=== PATIENT | male | born 1955 | race Asian ===

== ENCOUNTER 2016-07-20 09:22 | Emergency (ER) | payer OTHER ==
[~2016-07-20] VITALS: Ht 188 cm; Wt 120.0 kg
[~2016-07-20 09:22] MED LIST: FINA5TAB41 PO; LISI-661 PO; OMEP20 PO; PARO10TA89 PO
[2016-07-20 09:30] VITALS: BP 104/72
[2016-07-20] MEDS ORDERED: METO50 PO (09:38)
[2016-07-20] MEDS ORDERED: QUET50TA PO (09:38)
[2016-07-20] MEDS ORDERED: PARO40TA PO (09:38)
[2016-07-20] MEDS ORDERED: HYDROCODONE/ACETAMINOPHEN 10-325 MG TABLET PO ONE (10:30)
== END 2016-07-20 10:37 | disposition home or self-care (01) ==
LOC: EMS 09:23
DX: S39.011A Strain of muscle, fascia and tendon of abdomen, initial encounter (principal); I10 Essential (primary) hypertension; J45.909 Unspecified asthma, uncomplicated; X58.XXXA Exposure to other specified factors, initial encounter; Y93.B9 Activity, other involving muscle strengthening exercises; Y92.89 Other specified places as the place of occurrence of the external cause; Y99.8 Other external cause status
CPT/HCPCS: 99282; 99283

== ENCOUNTER 2016-08-24 09:32 | Emergency (ER) | payer OTHER ==
[~2016-08-24] VITALS: Ht 188 cm; Wt 129.6 kg
[~2016-08-24 09:32] MED LIST changes: +METO50 PO; -PARO10TA89 PO; +PARO40TA PO; +QUET50TA PO
[2016-08-24] MEDS ORDERED: PROPARACAINE HCL 0.5% 15 ML OPHTHALMIC SOLUTION OS ONE (10:45)
[2016-08-24 11:29] VITALS: BP 120/76
== END 2016-08-24 11:30 | disposition home or self-care (01) ==
LOC: EMS 09:33
DX: T15.02XA Foreign body in cornea, left eye, initial encounter (principal); J45.909 Unspecified asthma, uncomplicated; I10 Essential (primary) hypertension; N40.0 Benign prostatic hyperplasia without lower urinary tract symptoms; X58.XXXA Exposure to other specified factors, initial encounter; Y93.89 Activity, other specified; Y92.89 Other specified places as the place of occurrence of the external cause; Y99.8 Other external cause status
CPT/HCPCS: 65205; 99284

== ENCOUNTER 2017-02-09 13:33 | Inpatient (IN) | payer OTHER ==
[~2017-02-09] VITALS: Ht 188 cm; Wt 130.5 kg
[~2017-02-09 13:33] MED LIST changes: +MULT-1204 PO; +PARO20TA24 PO; -PARO40TA PO; -QUET50TA PO
[2017-02-09 14:40] LABS: BASOPHILS # (AUTO) 0.11 K/uL (0.00-0.20); BASOPHILS % (AUTO) 1.5 % (0.0-2.0); EOSINOPHILS % (AUTO) 1.31 % (1.0-6.0); HEMATOCRIT 38.9 % (41-53); HEMOGLOBIN 12.8 g/dL (13.5-17.5); LYMPHOCYTES # (AUTO) 1.8 K/uL (1.0-4.8); LYMPHOCYTES % (AUTO) 23.7 % (22.0-44.0); MEAN CORPUSCULAR HEMOGLOBIN 27.6 pg (26.0-34.0); MEAN CORPUSCULAR VOLUME 84 fL (80-100); MONOCYTES # (AUTO) 0.5 K/uL (0.1-1.0); MONOCYTES % (AUTO) 6.7 % (2.0-9.0); NEUTROPHILS % (AUTO) 66.8 % (40.0-70.0); PLATELET COUNT (AUTO) 263 K/uL (150-450); RED BLOOD CELL COUNT(AUTO) 4.64 MIL/uL (4.50-5.90); RED CELL DISTRIBUTION WIDTH 14.3 % (11.5-14.5); WHITE BLOOD COUNT (AUTO) 7.5 K/uL (4.5-11.0)
[2017-02-09 14:55] LABS: ANION GAP 8 mmol/L (8-16); CALCIUM, TOTAL 8.9 mg/dL (8.8-10.5); CARBON DIOXIDE 26 mmol/L (22-29); CHLORIDE 105 mmol/L (98-107); GLOMERULAR FILTR. RATE CALC > 60 mL/min (>60); POTASSIUM 4.1 mmol/L (3.5-5.1); SODIUM SERUM 139 mmol/L (136-145); UREA NITROGEN, BLOOD 13 mg/dL (7-18)
[2017-02-09] MEDS ORDERED: ASPIRIN 81 MG CHEWABLE TABLET PO ONE (15:00)
[2017-02-09 15:10] LABS: ALANINE AMINOTRANSFERASE 24 U/L (12-78); ALBUMIN 3.3 g/dL (3.4-5.0); ASPARTATE AMINOTRANSFERASE 14 U/L (15-37); BILIRUBIN,TOTAL 0.4 mg/dL (0.1-1.0); TOTAL PROTEIN, SERUM 7.2 g/dL (6.4-8.2)
[2017-02-09] MEDS ORDERED: 0.9% SODIUM CHLORIDE 10 ML SYRINGE IVP PRN (17:00)
[2017-02-09] MEDS ORDERED: ONDANSETRON HCL 4 MG/2 ML VIAL IVP PRN (17:00)
[2017-02-09] MEDS ORDERED: ACETAMINOPHEN 325 MG TABLET PO PRN ×2 (17:00→21:45)
[2017-02-09 18:16] VITALS: BP 148/91
[2017-02-09 19:46] VITALS: BP 123/72
[2017-02-09] MEDS ORDERED: MAGNESIUM HYDROXIDE SUSPENSION 30 ML UDCUP PO PRN (21:45)
[2017-02-10 00:06] VITALS: BP 123/70
[2017-02-10] MEDS: HEPARIN SODIUM,PORCINE 5,000 UNITS/ML VIAL SQ SCH ×3 (00:12→16:00)
[2017-02-10] MEDS: OxyCODONE HCL/ACETAMINOPHEN 5-325 MG TABLET PO PRN ×2 (00:12→10:29)
[2017-02-10 03:31] LABS: CHOL/HDL RATIO 5.4 (4.2-7.3)
[2017-02-10 05:02] VITALS: BP 128/81
[2017-02-10 07:08] VITALS: BP 116/74
[2017-02-10] MEDS ORDERED: PANTOPRAZOLE SODIUM 40 MG DR TABLET PO SCH (09:00)
[2017-02-10] MEDS ORDERED: DOCUSATE SODIUM 100 MG CAPSULE PO SCH (09:00)
[2017-02-10] MEDS ORDERED: ASPIRIN 81 MG CHEWABLE TABLET PO SCH (09:00)
[2017-02-10 11:59] VITALS: BP 114/68
[2017-02-10 15:17] VITALS: BP 116/68
== END 2017-02-10 18:45 | disposition home or self-care (01) | DRG 203 ==
LOC: EMS 13:36 → 5N 16:52
PROVIDERS: ADMIT Internal Medicine; ATTEND Internal Medicine
DX: R07.9 Chest pain, unspecified (principal); I10 Essential (primary) hypertension; M54.2 Cervicalgia; J45.909 Unspecified asthma, uncomplicated; F32.9 Major depressive disorder, single episode, unspecified; K21.9 Gastro-esophageal reflux disease without esophagitis; F41.9 Anxiety disorder, unspecified; N40.0 Benign prostatic hyperplasia without lower urinary tract symptoms; E78.5 Hyperlipidemia, unspecified; F42.9 Obsessive-compulsive disorder, unspecified; M47.9 Spondylosis, unspecified; E66.9 Obesity, unspecified; Z68.36 Body mass index [BMI] 36.0-36.9, adult; Z79.899 Other long term (current) drug therapy
CPT/HCPCS: 93005; 93306; 99285; J1644

== ENCOUNTER 2017-10-05 16:55 | Emergency (ER) | payer OTHER ==
[~2017-10-05] VITALS: Ht 188 cm; Wt 118.2 kg
[2017-10-05 17:40] VITALS: BP 117/73
== END 2017-10-05 20:18 | disposition left against medical advice (07) ==
LOC: EMS 16:56
DX: M25.561 Pain in right knee (principal); G89.29 Other chronic pain; K21.9 Gastro-esophageal reflux disease without esophagitis; J45.909 Unspecified asthma, uncomplicated; I10 Essential (primary) hypertension; Z53.21 Procedure and treatment not carried out due to patient leaving prior to being seen by health care provider

== ENCOUNTER 2017-10-07 08:57 | Emergency (ER) | payer OTHER ==
[~2017-10-07] VITALS: Ht 188 cm; Wt 118.2 kg
[~2017-10-07 08:57] MED LIST changes: -LISI-661 PO
[2017-10-07 11:53] VITALS: BP 128/67
== END 2017-10-07 12:02 | disposition home or self-care (01) ==
LOC: EMS 08:59
DX: M25.561 Pain in right knee (principal); I10 Essential (primary) hypertension; J45.909 Unspecified asthma, uncomplicated; K21.9 Gastro-esophageal reflux disease without esophagitis
CPT/HCPCS: 29505; 99284

== ENCOUNTER 2018-03-11 13:33 | Emergency (ER) | payer OTHER ==
[~2018-03-11] VITALS: Ht 188 cm; Wt 116.4 kg
[2018-03-11 14:07] LABS: BASOPHILS % (AUTO) 0.8 % (0.0-2.0); EOSINOPHILS % (AUTO) 1.4 % (1.0-6.0); HEMATOCRIT 43.3 % (41-53); HEMOGLOBIN 14.5 g/dL (13.5-17.5); LYMPHOCYTES # (AUTO) 1.7 K/uL (1.0-4.8); LYMPHOCYTES % (AUTO) 25.2 % (22.0-44.0); MEAN CORPUSCULAR HGB CONC 33.5 G/dL (31.0-37.0); MEAN CORPUSCULAR VOLUME 84 fL (80-100); MONOCYTES # (AUTO) 0.6 K/uL (0.1-1.0); MONOCYTES % (AUTO) 8.9 % (2.0-9.0); NEUTROPHILS # (AUTO) 4.2 K/uL (1.8-7.7); NEUTROPHILS % (AUTO) 63.7 % (40.0-70.0); PLATELET COUNT (AUTO) 317 K/uL (150-450); RED BLOOD CELL COUNT(AUTO) 5.17 MIL/uL (4.50-5.90); RED CELL DISTRIBUTION WIDTH 13.2 % (11.5-14.5)
[2018-03-11 14:15] LABS: ANION GAP 7 mmol/L (8-16); CALCIUM, TOTAL 8.7 mg/dL (8.8-10.5); CARBON DIOXIDE 30 mmol/L (22-29); CHLORIDE 100 mmol/L (98-107); CREATININE 1.04 mg/dL (0.60-1.30); GLOMERULAR FILTR. RATE CALC > 60 mL/min (>60); GLUCOSE,RANDOM 113 mg/dL (70-110); POTASSIUM 4.6 mmol/L (3.5-5.1); SODIUM SERUM 137 mmol/L (136-145); UREA NITROGEN, BLOOD 13 mg/dL (7-18)
[2018-03-11 14:21] LABS: ALANINE AMINOTRANSFERASE 31 U/L (12-78); ALBUMIN 3.8 g/dL (3.4-5.0); ALKALINE PHOSPHATASE 115 U/L (46-116); ASPARTATE AMINOTRANSFERASE 24 U/L (15-37); BILIRUBIN,TOTAL 0.3 mg/dL (0.1-1.0); TOTAL PROTEIN, SERUM 7.5 g/dL (6.4-8.2)
[2018-03-11] MEDS: LORazepam 1 MG TABLET PO ONE (15:22)
[2018-03-11 15:58] LABS: AMPHET/METH SCREEN,URINE NEGATIVE (NEGATIVE); BARBITURATE SCREEN, URINE NEGATIVE (NEGATIVE); BENZODIAZEPINES SCREEN,URINE NEGATIVE (NEGATIVE); CANNABINOID SCREEN,URINE NEGATIVE (NEGATIVE); COCAINE SCREEN,URINE NEGATIVE (NEGATIVE); METHADONE SCREEN, URINE NEGATIVE (NEGATIVE); OPIATE SCREEN,URINE NEGATIVE (NEGATIVE)
[2018-03-11 16:00] VITALS: BP 128/72
[2018-03-11 16:00] LABS: PHENCYCLIDINE SCREEN,URINE NEGATIVE (NEGATIVE)
== END 2018-03-11 16:04 | disposition home or self-care (01) ==
LOC: EMS 13:35
DX: F32.9 Major depressive disorder, single episode, unspecified (principal); F41.9 Anxiety disorder, unspecified; K21.9 Gastro-esophageal reflux disease without esophagitis; I10 Essential (primary) hypertension; Z79.899 Other long term (current) drug therapy
CPT/HCPCS: 36415; 80053; 80307; 85025; 99284; G0480

== ENCOUNTER 2018-09-02 16:50 | Emergency (ER) | payer OTHER ==
[~2018-09-02] VITALS: Ht 188 cm; Wt 114.5 kg
[~2018-09-02 16:50] MED LIST changes: -METO50 PO; -MULT-1204 PO
[2018-09-02] MEDS ORDERED: MULT-1192 PO (17:12)
[2018-09-02] MEDS ORDERED: FEXO-58 PO (17:12)
[2018-09-02 18:53] LABS: BASOPHILS % (AUTO) 1.2 % (0.0-2.0); EOSINOPHILS % (AUTO) 5.1 % (1.0-6.0); HEMATOCRIT 36.7 % (41-53); HEMOGLOBIN 12.2 g/dL (13.5-17.5); LYMPHOCYTES # (AUTO) 2.3 K/uL (1.0-4.8); LYMPHOCYTES % (AUTO) 39.6 % (22.0-44.0); MEAN CORPUSCULAR HEMOGLOBIN 27.3 pg (26.0-34.0); MEAN CORPUSCULAR HGB CONC 33.1 G/dL (31.0-37.0); MEAN CORPUSCULAR VOLUME 83 fL (80-100); MONOCYTES # (AUTO) 0.4 K/uL (0.1-1.0); MONOCYTES % (AUTO) 7.4 % (2.0-9.0); NEUTROPHILS # (AUTO) 2.7 K/uL (1.8-7.7); NEUTROPHILS % (AUTO) 46.7 % (40.0-70.0); PLATELET COUNT (AUTO) 257 K/uL (150-450); RED BLOOD CELL COUNT(AUTO) 4.45 MIL/uL (4.50-5.90); RED CELL DISTRIBUTION WIDTH 13.6 % (11.5-14.5)
[2018-09-02 19:05] LABS: PROTHROMBIN TIME 10.9 SEC (9.4-11.6)
[2018-09-02 19:09] LABS: ANION GAP 5 mmol/L (8-16); CARBON DIOXIDE 28 mmol/L (22-29); CHLORIDE 103 mmol/L (98-107); CREATININE 1.07 mg/dL (0.60-1.30); GLOMERULAR FILTR. RATE CALC > 60 mL/min (>60); GLUCOSE,RANDOM 101 mg/dL (70-110); POTASSIUM 4.3 mmol/L (3.5-5.1); SODIUM SERUM 136 mmol/L (136-145); UREA NITROGEN, BLOOD 15 mg/dL (7-18)
[2018-09-02 19:12] LABS: APPEARANCE,URINE CLEAR (CLEAR); BILIRUBIN,URINE NEGATIVE (NEGATIVE); GLUCOSE, URINE (UA) NEGATIVE (NEGATIVE); KETONES,URINE NEGATIVE (NEGATIVE); LEUKOCYTE ESTERASE ,URINE NEGATIVE (NEGATIVE); NITRATE,URINE NEGATIVE (NEGATIVE); OCCULT BLOOD,URINE NEGATIVE (NEGATIVE); PROTEIN,URINE NEGATIVE (NEGATIVE)
[2018-09-02 19:26] LABS: B-TYPE NATRIURETIC PEPTIDE 23 pg/mL (0-100)
[2018-09-02 19:33] LABS: ALANINE AMINOTRANSFERASE 27 U/L (12-78); ALBUMIN 3.1 g/dL (3.4-5.0); ALKALINE PHOSPHATASE 102 U/L (46-116); ASPARTATE AMINOTRANSFERASE 19 U/L (15-37); BILIRUBIN,TOTAL 0.2 mg/dL (0.1-1.0); CREATINE KINASE, TOTAL ONLY 141 U/L (39-308); TOTAL PROTEIN, SERUM 6.2 g/dL (6.4-8.2)
[2018-09-02] MEDS ORDERED: IPRATROPIUM BROMIDE 0.5 MG/2.5 ML NEB SOLUTION NEB ONE (20:15)
[2018-09-02] MEDS ORDERED: ALBUTEROL SULFATE 2.5 MG/0.5 ML NEB SOLUTION NEB ONE (20:15)
[2018-09-02] MEDS ORDERED: ALBUTEROL SULFATE HFA 90 MCG/PUFF 8 GM INHALER IH ONE (20:30)
[2018-09-02 21:30] VITALS: BP 112/65
== END 2018-09-02 21:50 | disposition left against medical advice (07) ==
LOC: EMS 16:51
DX: J45.909 Unspecified asthma, uncomplicated (principal); I10 Essential (primary) hypertension; K21.9 Gastro-esophageal reflux disease without esophagitis; F41.9 Anxiety disorder, unspecified; F32.9 Major depressive disorder, single episode, unspecified; Z79.899 Other long term (current) drug therapy
CPT/HCPCS: 93005; 94640; J3535

== ENCOUNTER 2018-10-10 13:46 | Inpatient (IN) | payer MEDICAID, OTHER ==
[~2018-10-10] VITALS: Ht 188 cm; Wt 112.9 kg
[~2018-10-10 13:46] MED LIST changes: +FEXO-58 PO; +MULT-1192 PO
[2018-10-10] MEDS ORDERED: RISP.5 PO (14:24)
[2018-10-10 17:12] LABS: BASOPHILS % (AUTO) 0.8 % (0.0-2.0); EOSINOPHILS % (AUTO) 0.2 % (1.0-6.0); HEMATOCRIT 41.7 % (41-53); LYMPHOCYTES # (AUTO) 1.4 K/uL (1.0-4.8); LYMPHOCYTES % (AUTO) 14.1 % (22.0-44.0); MEAN CORPUSCULAR HEMOGLOBIN 27.4 pg (26.0-34.0); MEAN CORPUSCULAR HGB CONC 33.5 G/dL (31.0-37.0); MEAN CORPUSCULAR VOLUME 82 fL (80-100); MONOCYTES # (AUTO) 0.9 K/uL (0.1-1.0); MONOCYTES % (AUTO) 9.3 % (2.0-9.0); NEUTROPHILS # (AUTO) 7.5 K/uL (1.8-7.7); NEUTROPHILS % (AUTO) 75.6 % (40.0-70.0); PLATELET COUNT (AUTO) 314 K/uL (150-450); RED CELL DISTRIBUTION WIDTH 13.9 % (11.5-14.5)
[2018-10-10 17:32] LABS: ANION GAP 11 mmol/L (8-16); CALCIUM, TOTAL 9.5 mg/dL (8.8-10.5); CARBON DIOXIDE 24 mmol/L (22-29); CHLORIDE 99 mmol/L (98-107); CREATININE 1.14 mg/dL (0.60-1.30); GLOMERULAR FILTR. RATE CALC > 60 mL/min (>60); GLUCOSE,RANDOM 114 mg/dL (70-110); POTASSIUM 4.1 mmol/L (3.5-5.1); SODIUM SERUM 134 mmol/L (136-145); UREA NITROGEN, BLOOD 12 mg/dL (7-18)
[2018-10-10 17:38] LABS: ALANINE AMINOTRANSFERASE 24 U/L (12-78); ALBUMIN 3.9 g/dL (3.4-5.0); ALKALINE PHOSPHATASE 118 U/L (46-116); ASPARTATE AMINOTRANSFERASE 32 U/L (15-37); TOTAL PROTEIN, SERUM 7.8 g/dL (6.4-8.2)
[2018-10-10] MEDS ORDERED: HALOPERIDOL 5 MG TABLET PO ONE (17:45)
[2018-10-10] MEDS ORDERED: LORazepam 2 MG TABLET PO ONE (17:45)
[2018-10-10] MEDS ORDERED: ZOLPIDEM TARTRATE 10 MG TABLET PO PRN (18:45)
[2018-10-10] MEDS ORDERED: RisperiDONE 1 MG TABLET PO ONE (18:45)
[2018-10-10] MEDS ORDERED: HALOPERIDOL 5 MG TABLET PO PRN (18:45)
[2018-10-10] MEDS ORDERED: LORazepam 2 MG TABLET PO PRN (18:45)
[2018-10-10 20:22] VITALS: BP 139/86
[2018-10-10 20:30] VITALS: BP 139/86
[2018-10-10] MEDS: RisperiDONE 3 MG TABLET PO SCH (21:16)
[2018-10-10] MEDS ORDERED: CloNIDine HCL 0.1 MG TABLET PO PRN (21:30)
[2018-10-10] MEDS ORDERED: PETROLATUM,WHITE 28 GM JELLY TP PRN (21:30)
[2018-10-10] MEDS ORDERED: GuaiFENesin/D-METHORPHAN [SUGAR-FREE] 200-20MG/10 ML SYRUP UDCUP PO PRN (21:30)
[2018-10-10] MEDS ORDERED: IBUPROFEN 400 MG TABLET PO PRN (21:30)
[2018-10-10] MEDS ORDERED: ONDANSETRON HCL 4 MG TABLET PO PRN (21:30)
[2018-10-10] MEDS ORDERED: DOCUSATE SODIUM 100 MG CAPSULE PO PRN (21:30)
[2018-10-10] MEDS ORDERED: ALBUTEROL SULFATE HFA 90 MCG/PUFF 8 GM INHALER IH PRN (21:30)
[2018-10-10] MEDS ORDERED: MAG HYDROX/AL HYDROX/SIMETH ES 30 ML SUSPENSION UDCUP PO PRN (21:30)
[2018-10-10] MEDS ORDERED: LOPERAMIDE HCL 2 MG CAPSULE PO PRN (21:30)
[2018-10-10] MEDS ORDERED: NICOTINE 14 MG/24 HOUR PATCH TD PRN (21:30)
[2018-10-11 06:50] LABS: BASOPHILS % (AUTO) 0.6 % (0.0-2.0); EOSINOPHILS % (AUTO) 2.2 % (1.0-6.0); HEMATOCRIT 39.4 % (41-53); HEMOGLOBIN 12.9 g/dL (13.5-17.5); LYMPHOCYTES # (AUTO) 1.1 K/uL (1.0-4.8); LYMPHOCYTES % (AUTO) 22.1 % (22.0-44.0); MEAN CORPUSCULAR HEMOGLOBIN 27.4 pg (26.0-34.0); MEAN CORPUSCULAR HGB CONC 32.7 G/dL (31.0-37.0); MEAN CORPUSCULAR VOLUME 84 fL (80-100); MONOCYTES # (AUTO) 0.6 K/uL (0.1-1.0); MONOCYTES % (AUTO) 11.6 % (2.0-9.0); NEUTROPHILS # (AUTO) 3.1 K/uL (1.8-7.7); NEUTROPHILS % (AUTO) 63.5 % (40.0-70.0); PLATELET COUNT (AUTO) 241 K/uL (150-450)
[2018-10-11 06:57] LABS: HEMOGLOBIN A1C 5.9 % (4.5-6.2)
[2018-10-11 07:28] LABS: ALANINE AMINOTRANSFERASE 24 U/L (12-78); ALBUMIN 3.3 g/dL (3.4-5.0); ALKALINE PHOSPHATASE 107 U/L (46-116); ANION GAP 6 mmol/L (8-16); ASPARTATE AMINOTRANSFERASE 28 U/L (15-37); BILIRUBIN,TOTAL 1.2 mg/dL (0.1-1.0); CARBON DIOXIDE 30 mmol/L (22-29); CHLORIDE 101 mmol/L (98-107); CHOL/HDL RATIO 3.5 (4.2-7.3); CHOLESTEROL 182 mg/dL (131-200); CREATININE 1.07 mg/dL (0.60-1.30); GLOMERULAR FILTR. RATE CALC > 60 mL/min (>60); GLUCOSE,RANDOM 103 mg/dL (70-110); HDL CHOLESTEROL 52 mg/dL (40-60); LDL CHOL (CALC.) 118 mg/dL (0-130); POTASSIUM 4.3 mmol/L (3.5-5.1); SODIUM SERUM 137 mmol/L (136-145); THYROID STIMULATING HORMONE 0.75 uIU/mL (0.36-3.74); TOTAL PROTEIN, SERUM 6.4 g/dL (6.4-8.2); TRIGLYCERIDES 62 mg/dL (15-150); UREA NITROGEN, BLOOD 13 mg/dL (7-18)
[2018-10-11] MEDS: RisperiDONE 3 MG TABLET PO SCH ×2 (08:31→16:07)
[2018-10-11] MEDS: ACETAMINOPHEN 325 MG TABLET PO PRN (08:31)
[2018-10-11 08:34] VITALS: BP 152/78
[2018-10-11 09:34] VITALS: BP 105/53
[2018-10-11] MEDS: PARoxetine HCL 20 MG TABLET PO SCH (13:29)
[2018-10-11 17:00] VITALS: BP 103/50
[2018-10-11] MEDS: RisperiDONE 2 MG TABLET PO SCH (20:14)
[2018-10-12 08:01] VITALS: BP 112/67
[2018-10-12] MEDS: OMEPRAZOLE 20 MG CAPSULE PO SCH (08:22)
[2018-10-12] MEDS: RisperiDONE 3 MG TABLET PO SCH ×2 (08:22→16:14)
[2018-10-12] MEDS: MULTIVITAMINS, THERAPEUTIC TABLET PO SCH (08:23)
[2018-10-12] MEDS: PARoxetine HCL 20 MG TABLET PO SCH (08:23)
[2018-10-12] MEDS: FINASTERIDE 5 MG TABLET PO SCH (08:23)
[2018-10-12 16:20] VITALS: BP 106/57
[2018-10-12] MEDS: RisperiDONE 2 MG TABLET PO SCH (20:49)
[2018-10-13 08:05] VITALS: BP 135/95
[2018-10-13] MEDS: MULTIVITAMINS, THERAPEUTIC TABLET PO SCH (08:31)
[2018-10-13] MEDS: RisperiDONE 3 MG TABLET PO SCH (08:31)
[2018-10-13] MEDS: PARoxetine HCL 20 MG TABLET PO SCH (08:31)
[2018-10-13] MEDS: FINASTERIDE 5 MG TABLET PO SCH (08:32)
[2018-10-13] MEDS: OMEPRAZOLE 20 MG CAPSULE PO SCH (08:32)
[2018-10-13 17:16] VITALS: BP 111/55
[2018-10-14 05:25] VITALS: BP 130/68
[2018-10-14] MEDS: OMEPRAZOLE 20 MG CAPSULE PO SCH (08:20)
[2018-10-14] MEDS: ARIPiprazole 15 MG TABLET PO SCH (08:21)
[2018-10-14] MEDS: FINASTERIDE 5 MG TABLET PO SCH (08:21)
[2018-10-14] MEDS: PARoxetine HCL 20 MG TABLET PO SCH (08:21)
[2018-10-14] MEDS: MULTIVITAMINS, THERAPEUTIC TABLET PO SCH (08:21)
[2018-10-14] MEDS: BuPROPion HCL XL 150 MG ER TABLET PO SCH (08:21)
[2018-10-14 08:27] VITALS: BP 113/54
[2018-10-14 17:03] VITALS: BP 119/60
[2018-10-15 08:05] VITALS: BP 124/87
[2018-10-15] MEDS: PARoxetine HCL 20 MG TABLET PO SCH (08:46)
[2018-10-15] MEDS: MULTIVITAMINS, THERAPEUTIC TABLET PO SCH (08:46)
[2018-10-15] MEDS: OMEPRAZOLE 20 MG CAPSULE PO SCH (08:46)
[2018-10-15] MEDS: BuPROPion HCL XL 150 MG ER TABLET PO SCH (08:46)
[2018-10-15] MEDS: FINASTERIDE 5 MG TABLET PO SCH (08:47)
[2018-10-15] MEDS: ARIPiprazole 15 MG TABLET PO SCH (08:47)
[2018-10-15] MEDS: MAGNESIUM HYDROXIDE SUSPENSION 30 ML UDCUP PO PRN (09:00)
[2018-10-15 16:00] VITALS: BP 131/68
[2018-10-15] MEDS: ACETAMINOPHEN 325 MG TABLET PO PRN (16:00)
[2018-10-16 05:37] VITALS: BP 141/82
[2018-10-16] MEDS: ACETAMINOPHEN 325 MG TABLET PO PRN (05:37)
[2018-10-16 08:05] VITALS: BP 147/84
[2018-10-16] MEDS: MULTIVITAMINS, THERAPEUTIC TABLET PO SCH (08:10)
[2018-10-16] MEDS: OMEPRAZOLE 20 MG CAPSULE PO SCH (08:10)
[2018-10-16] MEDS: PARoxetine HCL 20 MG TABLET PO SCH (08:11)
[2018-10-16] MEDS: BuPROPion HCL XL 150 MG ER TABLET PO SCH (08:11)
[2018-10-16] MEDS: FINASTERIDE 5 MG TABLET PO SCH (08:11)
[2018-10-16] MEDS: ARIPiprazole 15 MG TABLET PO SCH (08:11)
[2018-10-16 17:00] VITALS: BP 136/84
[2018-10-17] MEDS: MAGNESIUM HYDROXIDE SUSPENSION 30 ML UDCUP PO PRN (00:18)
[2018-10-17 00:22] VITALS: BP 132/83
[2018-10-17] MEDS: PARoxetine HCL 20 MG TABLET PO SCH (08:02)
[2018-10-17] MEDS: ARIPiprazole 15 MG TABLET PO SCH (08:02)
[2018-10-17] MEDS: OMEPRAZOLE 20 MG CAPSULE PO SCH (08:02)
[2018-10-17] MEDS: BuPROPion HCL XL 150 MG ER TABLET PO SCH (08:02)
[2018-10-17] MEDS: MULTIVITAMINS, THERAPEUTIC TABLET PO SCH (08:02)
[2018-10-17] MEDS: FINASTERIDE 5 MG TABLET PO SCH (08:03)
[2018-10-17] MEDS ORDERED: ARIP15TA2 PO (09:41)
[2018-10-17] MEDS ORDERED: BUPR-93 PO (09:41)
[2018-10-17 10:22] VITALS: BP 142/90
== END 2018-10-17 11:05 | disposition home or self-care (01) | DRG 750 ==
LOC: EMS 13:47 → 3EX 19:30
PROVIDERS: ADMIT Psychiatry & Neurology Psychiatry; ATTEND Psychiatry & Neurology Psychiatry
DX: F20.0 Paranoid schizophrenia (principal); R45.851 Suicidal ideations; Z91.14 Patient's other noncompliance with medication regimen; E78.5 Hyperlipidemia, unspecified; F42.9 Obsessive-compulsive disorder, unspecified; I10 Essential (primary) hypertension; J44.9 Chronic obstructive pulmonary disease, unspecified; K21.9 Gastro-esophageal reflux disease without esophagitis; N40.0 Benign prostatic hyperplasia without lower urinary tract symptoms; F41.9 Anxiety disorder, unspecified; M47.9 Spondylosis, unspecified; F32.9 Major depressive disorder, single episode, unspecified
CPT/HCPCS: 83036; 84443; G0378; G0480

== ENCOUNTER 2018-11-03 10:49 | Emergency (ER) | payer MEDICAID, OTHER ==
[~2018-11-03] VITALS: Ht 188 cm; Wt 115.9 kg
[~2018-11-03 10:49] MED LIST changes: +ARIP15TA2 PO; +BUPR-93 PO; -FEXO-58 PO
[2018-11-03] MEDS ORDERED: LORazepam 2 MG TABLET PO ONE (11:15)
[2018-11-03 11:33] LABS: BASOPHILS % (AUTO) 1.2 % (0.0-2.0); EOSINOPHILS % (AUTO) 2.8 % (1.0-6.0); HEMATOCRIT 41.9 % (41-53); HEMOGLOBIN 13.6 g/dL (13.5-17.5); LYMPHOCYTES # (AUTO) 1.6 K/uL (1.0-4.8); LYMPHOCYTES % (AUTO) 26.1 % (22.0-44.0); MEAN CORPUSCULAR HEMOGLOBIN 27.3 pg (26.0-34.0); MEAN CORPUSCULAR HGB CONC 32.4 G/dL (31.0-37.0); MEAN CORPUSCULAR VOLUME 84 fL (80-100); MONOCYTES # (AUTO) 0.5 K/uL (0.1-1.0); MONOCYTES % (AUTO) 8.5 % (2.0-9.0); NEUTROPHILS # (AUTO) 3.7 K/uL (1.8-7.7); NEUTROPHILS % (AUTO) 61.4 % (40.0-70.0); PLATELET COUNT (AUTO) 305 K/uL (150-450); RED BLOOD CELL COUNT(AUTO) 4.98 MIL/uL (4.50-5.90)
[2018-11-03 12:53] VITALS: BP 123/76
[2018-11-03 12:54] LABS: ANION GAP 8 mmol/L (8-16); CALCIUM, TOTAL 9.7 mg/dL (8.8-10.5); CARBON DIOXIDE 24 mmol/L (22-29); CHLORIDE 102 mmol/L (98-107); CREATININE 1.03 mg/dL (0.60-1.30); GLOMERULAR FILTR. RATE CALC > 60 mL/min (>60); GLUCOSE,RANDOM 107 mg/dL (70-110); POTASSIUM 3.7 mmol/L (3.5-5.1); SODIUM SERUM 134 mmol/L (136-145); UREA NITROGEN, BLOOD 12 mg/dL (7-18)
[2018-11-03 13:06] LABS: ALANINE AMINOTRANSFERASE 42 U/L (12-78); ALBUMIN 3.4 g/dL (3.4-5.0); ALKALINE PHOSPHATASE 101 U/L (46-116); ASPARTATE AMINOTRANSFERASE 26 U/L (15-37); BILIRUBIN,TOTAL 0.3 mg/dL (0.1-1.0); TOTAL PROTEIN, SERUM 6.9 g/dL (6.4-8.2)
== END 2018-11-03 13:15 | disposition home or self-care (01) ==
LOC: EMS 10:51
DX: F41.9 Anxiety disorder, unspecified (principal); F32.9 Major depressive disorder, single episode, unspecified; K21.9 Gastro-esophageal reflux disease without esophagitis; I10 Essential (primary) hypertension; J45.909 Unspecified asthma, uncomplicated
CPT/HCPCS: 36415; 80053; 85025; 99284; G0480

== ENCOUNTER 2018-11-18 03:41 | Emergency (ER) | payer OTHER ==
[~2018-11-18] VITALS: Ht 188 cm; Wt 118.2 kg
[~2018-11-18 03:41] MED LIST changes: -BUPR-93 PO
[2018-11-18 03:47] VITALS: BP 146/89
[2018-11-18 07:05] LABS: GLUCOSE,POINT OF CARE 117 MG/DL (70-110)
== END 2018-11-18 04:40 | disposition left against medical advice (07) ==
LOC: EMS 03:41
DX: Z53.21 Procedure and treatment not carried out due to patient leaving prior to being seen by health care provider (principal)

== ENCOUNTER 2019-06-09 07:46 | Emergency (ER) | payer OTHER ==
[~2019-06-09] VITALS: Ht 188 cm; Wt 118.2 kg
[~2019-06-09 07:46] MED LIST changes: -ARIP15TA2 PO; +FINA-27 PO; -FINA5TAB41 PO
[2019-06-09] MEDS ORDERED: LISI-661 PO (07:56)
[2019-06-09] MEDS ORDERED: IBUP-2271 PO (07:57)
[2019-06-09 08:30] VITALS: BP 118/86
== END 2019-06-09 08:31 | disposition home or self-care (01) ==
LOC: EMS 07:47
DX: M25.572 Pain in left ankle and joints of left foot (principal); I10 Essential (primary) hypertension; J45.909 Unspecified asthma, uncomplicated; F41.9 Anxiety disorder, unspecified; F32.9 Major depressive disorder, single episode, unspecified; F42.9 Obsessive-compulsive disorder, unspecified; Z98.890 Other specified postprocedural states; Z79.899 Other long term (current) drug therapy; Z88.8 Allergy status to other drugs, medicaments and biological substances

== ENCOUNTER 2020-01-02 12:37 | Emergency (ER) | payer OTHER ==
[~2020-01-02] VITALS: Ht 190.5 cm; Wt 122.7 kg
[~2020-01-02 12:37] MED LIST changes: +IBUP-2759 PO; +LISI-661 PO; -OMEP20 PO
[2020-01-02] MEDS ORDERED: PARO10TA89 PO (13:10)
[2020-01-02] MEDS ORDERED: ALBU8HFA IH (13:10)
[2020-01-02] MEDS ORDERED: LISI-662 PO (13:10)
[2020-01-02] MEDS ORDERED: PredniSONE 20 MG TABLET PO ONE (13:15)
[2020-01-02 15:30] VITALS: BP 141/81
== END 2020-01-02 16:05 | disposition home or self-care (01) ==
LOC: EMS 12:39
DX: J45.909 Unspecified asthma, uncomplicated (principal); F32.9 Major depressive disorder, single episode, unspecified; I10 Essential (primary) hypertension
CPT/HCPCS: 93005; 99283; J7512

== ENCOUNTER 2020-07-27 17:48 | Emergency (ER) | payer OTHER ==
[~2020-07-27] VITALS: Ht 188 cm; Wt 125.0 kg
[~2020-07-27 17:48] MED LIST changes: +ALBU8HFA IH; -LISI-661 PO; +LISI-894 PO; +PARO10TA89 PO; -PARO20TA24 PO
[2020-07-27] MEDS ORDERED: PROP10TA73 PO (17:58)
[2020-07-27] MEDS ORDERED: GABA-1181 PO (17:58)
[2020-07-27] MEDS ORDERED: LORA-1000 PO (17:59)
[2020-07-27 18:00] VITALS: BP 129/76
== END 2020-07-27 18:35 | disposition home or self-care (01) ==
LOC: EMS 17:48
DX: F25.9 Schizoaffective disorder, unspecified (principal); I10 Essential (primary) hypertension; Z88.8 Allergy status to other drugs, medicaments and biological substances; Z79.899 Other long term (current) drug therapy
CPT/HCPCS: 99284; Z7502

== ENCOUNTER 2021-07-03 09:05 | Emergency (ER) | payer MEDICARE, OTHER ==
[~2021-07-03] VITALS: Ht 188 cm; Wt 127.0 kg
[~2021-07-03 09:05] MED LIST changes: +GABA-1181 PO; +LORA-1000 PO; +PROP10TA73 PO
[2021-07-03] MEDS ORDERED: ALBUTEROL SULFATE HFA 90 MCG/PUFF 8 GM INHALER IH ONE (09:30)
[2021-07-03] MEDS ORDERED: IOHEXOL 350 MG/ML 100 ML VIAL ONE (10:17)
[2021-07-03] MEDS ORDERED: SODIUM CHLORIDE 0.9% 100 ML ONE (10:17)
[2021-07-03 10:28] LABS: BASOPHILS % (AUTO) 0.6 % (0.0-2.0); EOSINOPHILS % (AUTO) 1.8 % (1.0-6.0); HEMOGLOBIN 13.9 g/dL (13.5-17.5); LYMPHOCYTES % (AUTO) 17.7 % (22.0-44.0); MEAN CORPUSCULAR HEMOGLOBIN 27.1 pg (26.0-34.0); MEAN CORPUSCULAR VOLUME 82 fL (80-100); MONOCYTES # (AUTO) 0.4 K/uL (0.1-1.0); MONOCYTES % (AUTO) 6.7 % (2.0-9.0); NEUTROPHILS # (AUTO) 4.3 K/uL (1.8-7.7); NEUTROPHILS % (AUTO) 73.2 % (40.0-70.0); PLATELET COUNT (AUTO) 271 K/uL (150-450); RED BLOOD CELL COUNT(AUTO) 5.12 MIL/uL (4.50-5.90); RED CELL DISTRIBUTION WIDTH 13.3 % (11.5-14.5)
[2021-07-03 10:36] LABS: ANION GAP 7 mmol/L (8-16); CALCIUM, TOTAL 9.7 mg/dL (8.8-10.5); CARBON DIOXIDE 28 mmol/L (22-29); CHLORIDE 99 mmol/L (98-107); CREATININE 1.17 mg/dL (0.60-1.30); GLOMERULAR FILTR. RATE CALC > 60 mL/min (>60); GLUCOSE,RANDOM 125 mg/dL (70-110); POTASSIUM 4.2 mmol/L (3.5-5.1); SODIUM SERUM 134 mmol/L (136-145); UREA NITROGEN, BLOOD 15 mg/dL (7-18)
[2021-07-03 10:41] LABS: ALANINE AMINOTRANSFERASE 34 U/L (12-78); ALBUMIN 3.8 g/dL (3.4-5.0); ALKALINE PHOSPHATASE 121 U/L (46-116); ASPARTATE AMINOTRANSFERASE 23 U/L (15-37); BILIRUBIN,TOTAL 0.3 mg/dL (0.1-1.0); TOTAL PROTEIN, SERUM 7.7 g/dL (6.4-8.2)
[2021-07-03 10:46] LABS: COVID AG,FIA SOURCE NASOPHARYNGEAL
[2021-07-03 11:36] LABS: INFLUENZA TYPE A NEGATIVE FOR TYPE A (NEGATIVE); INFLUENZA TYPE B NEGATIVE FOR TYPE B (NEGATIVE)
[2021-07-03 13:45] VITALS: BP 105/73
== END 2021-07-03 14:45 | disposition home or self-care (01) ==
LOC: EMS 09:26
DX: R06.02 Shortness of breath (principal); I10 Essential (primary) hypertension; Z20.822 Contact with and (suspected) exposure to COVID-19; Z88.8 Allergy status to other drugs, medicaments and biological substances; Z79.899 Other long term (current) drug therapy
CPT/HCPCS: 36415; 70360; 70491; 71046; 80053; 85025; 87426; 87804; 94640; 99285; J7050; Q9967; J3535

== ENCOUNTER 2022-05-04 13:01 | Inpatient (IN) | payer MEDICARE, OTHER ==
[~2022-05-04] VITALS: Ht 188 cm; Wt 98.2 kg
[~2022-05-04 13:01] MED LIST changes: -IBUP-2759 PO; +IBUP-45 PO
[2022-05-04] MEDS ORDERED: LIDOCAINE 1% 10 ML VIAL SQ ONE (14:30)
[2022-05-04] MEDS ORDERED: SODIUM CHLORIDE 0.9% 1,000 ML IV ONE ×2 (14:45→19:00)
[2022-05-04 14:54] LABS: BASOPHILS % (AUTO) 1.1 % (0.0-2.0); EOSINOPHILS % (AUTO) 1.7 % (1.0-6.0); HEMATOCRIT 42.9 % (41-53); HEMOGLOBIN 13.9 g/dL (13.5-17.5); LYMPHOCYTES # (AUTO) 1.6 K/uL (1.0-4.8); LYMPHOCYTES % (AUTO) 30.7 % (22.0-44.0); MEAN CORPUSCULAR HGB CONC 32.4 G/dL (31.0-37.0); MEAN CORPUSCULAR VOLUME 83 fL (80-100); MONOCYTES # (AUTO) 0.5 K/uL (0.1-1.0); MONOCYTES % (AUTO) 8.9 % (2.0-9.0); NEUTROPHILS % (AUTO) 57.6 % (40.0-70.0); PLATELET COUNT (AUTO) 223 K/uL (150-450); RED BLOOD CELL COUNT(AUTO) 5.16 MIL/uL (4.50-5.90); RED CELL DISTRIBUTION WIDTH 14.1 % (11.5-14.5)
[2022-05-04 14:59] LABS: CALCIUM, TOTAL 9.4 mg/dL (8.8-10.5); CREATININE 1.23 mg/dL (0.60-1.30)
[2022-05-04] MEDS ORDERED: SODIUM,POTASSIUM PHOSPHATES POWDER PACKET PO ONE (15:45)
[2022-05-04] MEDS ORDERED: BACITRACIN 0.9 GM PACKET OINTMENT TP ONE (16:00)
[2022-05-04 17:04] LABS: COVID AG,FIA SOURCE NASAL SWAB
[2022-05-04] MEDS ORDERED: POTASSIUM CHL 10 MEQ/WATER 50 ML IV PRN (19:00)
[2022-05-04] MEDS ORDERED: MAGNESIUM HYDROXIDE SUSPENSION 30 ML UDCUP PO PRN (19:00)
[2022-05-04] MEDS ORDERED: ONDANSETRON HCL 4 MG/2 ML VIAL IVP PRN (19:00)
[2022-05-04] MEDS ORDERED: POTASSIUM CHLORIDE 20 MEQ ER TABLET PO PRN (19:00)
[2022-05-04 19:17] LABS: APPEARANCE,URINE CLEAR (CLEAR); GLUCOSE, URINE (UA) NEGATIVE (NEGATIVE); KETONES,URINE 40-60 mg/dL (NEGATIVE); LEUKOCYTE ESTERASE ,URINE LARGE (NEGATIVE); NITRATE,URINE NEGATIVE (NEGATIVE); OCCULT BLOOD,URINE NEGATIVE (NEGATIVE); PH,URINE 6.5 (5.0-8.0); PROTEIN,URINE 30-70 mg/dL (NEGATIVE); SPECIFIC GRAVITIY, URINE 1.038 (1.003-1.030)
[2022-05-04 19:18] LABS: BILIRUBIN,URINE SMALL (NEGATIVE)
[2022-05-04 19:22] LABS: THYROID STIMULATING HORMONE 1.47 uIU/mL (0.36-3.74)
[2022-05-04 19:25] LABS: BACTERIA,URINE None Seen /HPF (None Seen); RBC,URINE 0-2 /HPF (0-2); SQUAMOUS EPITHELIAL CELL,UR None Seen /LPF (None Seen)
[2022-05-04 20:55] VITALS: BP 107/67
[2022-05-05 00:22] VITALS: BP 109/71
[2022-05-05 04:25] VITALS: BP 105/68
[2022-05-05 07:11] VITALS: BP 110/74
[2022-05-05] MEDS: FAMOTIDINE 20 MG TABLET PO SCH (09:33)
[2022-05-05] MEDS: ACETAMINOPHEN 325 MG TABLET PO PRN (09:34)
[2022-05-05 11:21] VITALS: BP 124/62
[2022-05-05 15:58] VITALS: BP 118/69
[2022-05-05 20:06] VITALS: BP 102/67
[2022-05-06] VITALS (7 sets, daily range): BP systolic 101–140; BP diastolic 63–90
[2022-05-06] MEDS: ACETAMINOPHEN 325 MG TABLET PO PRN ×2 (04:45→15:14)
[2022-05-06] MEDS: FAMOTIDINE 20 MG TABLET PO SCH (08:50)
[2022-05-07 04:19] VITALS: BP 120/73
[2022-05-07] MEDS: ACETAMINOPHEN 325 MG TABLET PO PRN ×2 (05:17→09:13)
[2022-05-07 07:43] VITALS: BP 129/79
[2022-05-07] MEDS: FAMOTIDINE 20 MG TABLET PO SCH (09:10)
[2022-05-07 11:29] VITALS: BP 136/86
== END 2022-05-07 12:00 | disposition home or self-care (01) | DRG 74 ==
LOC: EMS 13:14 → AHU 17:06 → 5S 22:32
PROVIDERS: ADMIT Internal Medicine; ATTEND Internal Medicine
DX: G90.8 Other disorders of autonomic nervous system (principal); E87.6 Hypokalemia; F20.9 Schizophrenia, unspecified; I10 Essential (primary) hypertension; S01.81XA Laceration without foreign body of other part of head, initial encounter; F42.9 Obsessive-compulsive disorder, unspecified; F41.9 Anxiety disorder, unspecified; Z20.822 Contact with and (suspected) exposure to COVID-19; W18.39XA Other fall on same level, initial encounter; N40.0 Benign prostatic hyperplasia without lower urinary tract symptoms; Z88.8 Allergy status to other drugs, medicaments and biological substances; Z79.899 Other long term (current) drug therapy; Y93.89 Activity, other specified; Y92.89 Other specified places as the place of occurrence of the external cause; Y99.8 Other external cause status; T50.915A Adverse effect of multiple unspecified drugs, medicaments and biological substances, initial encounter
CPT/HCPCS: 12013; 70450; 71045; 72125; 80048; 81001; 84132; 84443; 84484; 85025; 87086; 87186; 93005; 93306; 97162; 99285; J3490; J7030; 36415-L1; 36415-TC

== ENCOUNTER 2022-05-14 12:23 | Inpatient (IN) | payer MEDICARE, OTHER ==
[~2022-05-14] VITALS: Ht 188 cm; Wt 92.0 kg
[~2022-05-14 12:23] MED LIST changes: -FINA-27 PO; -GABA-1181 PO; -IBUP-45 PO; -LISI-894 PO; -LORA-1000 PO; -PROP10TA73 PO
[2022-05-14 15:17] LABS: BASOPHILS % (AUTO) 0.3 % (0.0-2.0); EOSINOPHILS % (AUTO) 0.1 % (1.0-6.0); HEMOGLOBIN 14.6 g/dL (13.5-17.5); LYMPHOCYTES # (AUTO) 0.8 K/uL (1.0-4.8); LYMPHOCYTES % (AUTO) 11.3 % (22.0-44.0); MEAN CORPUSCULAR HEMOGLOBIN 27.1 pg (26.0-34.0); MEAN CORPUSCULAR HGB CONC 32.4 G/dL (31.0-37.0); MEAN CORPUSCULAR VOLUME 84 fL (80-100); MONOCYTES # (AUTO) 0.6 K/uL (0.1-1.0); MONOCYTES % (AUTO) 8.6 % (2.0-9.0); NEUTROPHILS # (AUTO) 5.9 K/uL (1.8-7.7); NEUTROPHILS % (AUTO) 79.7 % (40.0-70.0); PLATELET COUNT (AUTO) 246 K/uL (150-450); RED BLOOD CELL COUNT(AUTO) 5.38 MIL/uL (4.50-5.90); RED CELL DISTRIBUTION WIDTH 14.6 % (11.5-14.5)
[2022-05-14 15:30] LABS: ANION GAP 9 mmol/L (8-16); CALCIUM, TOTAL 9.6 mg/dL (8.8-10.5); CARBON DIOXIDE 25 mmol/L (22-29); CHLORIDE 102 mmol/L (98-107); CREATININE 1.24 mg/dL (0.60-1.30); GLUCOSE,RANDOM 114 mg/dL (70-110); POTASSIUM 4.1 mmol/L (3.5-5.1); SODIUM SERUM 136 mmol/L (136-145); UREA NITROGEN, BLOOD 22 mg/dL (7-18)
[2022-05-14 15:38] LABS: GLOMERULAR FILTR. RATE CALC 59 mL/min (>60)
[2022-05-14 15:41] LABS: B-TYPE NATRIURETIC PEPTIDE < 5 pg/mL (0-100)
[2022-05-14 15:56] LABS: ALANINE AMINOTRANSFERASE 22 U/L (12-78); ALBUMIN 3.9 g/dL (3.4-5.0); ALKALINE PHOSPHATASE 113 U/L (46-116); ASPARTATE AMINOTRANSFERASE 18 U/L (15-37); BILIRUBIN,TOTAL 0.6 mg/dL (0.1-1.0); CREATINE KINASE, TOTAL ONLY 133 U/L (39-308); TOTAL PROTEIN, SERUM 7.8 g/dL (6.4-8.2)
[2022-05-14] MEDS ORDERED: PARO40TA72 PO (16:06)
[2022-05-14] MEDS ORDERED: GABA-1181 PO (16:06)
[2022-05-14] MEDS ORDERED: PIMO1TAB2 PO (16:06)
[2022-05-14] MEDS ORDERED: OMEP20CA12 PO (16:06)
[2022-05-14] MEDS ORDERED: PARO30TA60 PO (16:06)
[2022-05-14] MEDS ORDERED: ATOR10TA69 PO (16:06)
[2022-05-14] MEDS ORDERED: TAMS-13 PO (16:06)
[2022-05-14] MEDS ORDERED: FINA5TAB41 PO (16:06)
[2022-05-14] MEDS ORDERED: TOPI25 PO (16:06)
[2022-05-14] MEDS ORDERED: CLON0.5T4 PO (16:06)
[2022-05-14] MEDS ORDERED: LISI20TA24 PO (16:06)
[2022-05-14] MEDS ORDERED: SODIUM CHLORIDE 0.9% 1,000 ML IV ONE ×2 (16:15→20:15)
[2022-05-14] MEDS ORDERED: ACETAMINOPHEN 325 MG TABLET PO PRN (19:45)
[2022-05-14] MEDS ORDERED: ONDANSETRON HCL 4 MG/2 ML VIAL IVP PRN ×2 (19:45→20:15)
[2022-05-14] MEDS ORDERED: MAGNESIUM HYDROXIDE SUSPENSION 30 ML UDCUP PO PRN (20:15)
[2022-05-14 22:53] LABS: COVID AG,FIA SOURCE NASAL SWAB
[2022-05-14 23:55] VITALS: BP 126/75
[2022-05-15] MEDS: HEPARIN SODIUM,PORCINE 5,000 UNITS/ML VIAL SQ SCH ×4 (01:13→23:38)
[2022-05-15 07:55] VITALS: BP 115/75
[2022-05-15] MEDS: FAMOTIDINE 20 MG TABLET PO SCH (08:07)
[2022-05-15 12:10] VITALS: BP 117/79
[2022-05-15] MEDS: ACETAMINOPHEN 325 MG TABLET PO PRN (14:14)
[2022-05-15 17:06] VITALS: BP 109/73
[2022-05-15 20:00] VITALS: BP 104/71
[2022-05-15] MEDS ORDERED: TAMSULOSIN HCL 0.4 MG CAPSULE PO SCH (21:00)
[2022-05-16] VITALS: BP 115/72
[2022-05-16 04:00] VITALS: BP 102/61
[2022-05-16 08:18] VITALS: BP 128/87
[2022-05-16] MEDS ORDERED: ATORVASTATIN CALCIUM 10 MG TABLET PO SCH (09:00)
[2022-05-16] MEDS ORDERED: FINASTERIDE 5 MG TABLET PO SCH (09:00)
[2022-05-16] MEDS: HEPARIN SODIUM,PORCINE 5,000 UNITS/ML VIAL SQ SCH ×2 (09:07→16:41)
[2022-05-16] MEDS: FAMOTIDINE 20 MG TABLET PO SCH (09:08)
[2022-05-16] MEDS: ACETAMINOPHEN 325 MG TABLET PO PRN ×2 (09:08→14:17)
[2022-05-16 10:52] VITALS: BP 102/60
[2022-05-16 15:28] VITALS: BP 115/75
== END 2022-05-16 18:40 | disposition home health service (06) | DRG 73 ==
LOC: EMS 12:31 → 5S 22:00
PROVIDERS: ADMIT Internal Medicine; ATTEND Internal Medicine
DX: G90.9 Disorder of the autonomic nervous system, unspecified (principal); G92.9 Unspecified toxic encephalopathy; I95.1 Orthostatic hypotension; I10 Essential (primary) hypertension; N40.0 Benign prostatic hyperplasia without lower urinary tract symptoms; E78.5 Hyperlipidemia, unspecified; F20.9 Schizophrenia, unspecified; F42.9 Obsessive-compulsive disorder, unspecified; F41.9 Anxiety disorder, unspecified; Z20.822 Contact with and (suspected) exposure to COVID-19; Z79.899 Other long term (current) drug therapy; Z88.8 Allergy status to other drugs, medicaments and biological substances; T50.915A Adverse effect of multiple unspecified drugs, medicaments and biological substances, initial encounter
CPT/HCPCS: 70450; 71045; 80053; 82550; 83880; 84484; 85025; 87081; 93005; 93880; 97162; 99285; J1644; 36415-L1; 36415-TC

== ENCOUNTER 2022-10-29 17:22 | Emergency (ER) | payer MEDICARE, OTHER ==
[~2022-10-29] VITALS: Ht 188 cm; Wt 119.0 kg
[~2022-10-29 17:22] MED LIST changes: +ALBU18HF12 IH; -ALBU8HFA IH; +ATOR10TA69 PO; +OMEP20CA12 PO; -PARO10TA89 PO; +PARO40TA72 PO; +TOPI25 PO
[2022-10-29 18:04] VITALS: TEMP 98.5
[2022-10-29] MEDS ORDERED: LORazepam 1 MG TABLET PO ONE (18:15)
[2022-10-29] MEDS ORDERED: PANT40TA54 PO (18:24)
[2022-10-29] MEDS ORDERED: OLAN5TAB94 PO (18:24)
[2022-10-29] MEDS ORDERED: ALBU18HF7 IH (18:24)
[2022-10-29] MEDS ORDERED: CLON0.5T4 PO (18:24)
[2022-10-29] MEDS ORDERED: APIX5TAB PO (18:24)
[2022-10-29] MEDS ORDERED: CLON0.1T2 PO (18:24)
[2022-10-29] MEDS ORDERED: FINA5TAB41 PO (18:24)
[2022-10-29] MEDS ORDERED: TAMS-13 PO (18:24)
[2022-10-29] MEDS ORDERED: FLUV100T22 PO (18:24)
[2022-10-29] MEDS ORDERED: FLUT1DIS4 IH (18:24)
[2022-10-29] MEDS ORDERED: METF-1211 PO (18:24)
[2022-10-29] MEDS ORDERED: DILT120C78 PO (18:32)
[2022-10-29] MEDS ORDERED: PARO10TA71 PO (18:34)
[2022-10-29] MEDS ORDERED: HydrOXYzine PAMOATE 50 MG CAPSULE PO ONE (19:15)
[2022-10-29] MEDS ORDERED: HYDR50CA7 PO (20:31)
[2022-10-29 20:46] VITALS: BP 133/73; PULSE 71; RESP 20
== END 2022-10-29 20:49 | disposition home or self-care (01) ==
LOC: EMS 17:22
DX: R06.02 Shortness of breath (principal); F41.9 Anxiety disorder, unspecified; F20.9 Schizophrenia, unspecified; I10 Essential (primary) hypertension; J44.9 Chronic obstructive pulmonary disease, unspecified; Z88.8 Allergy status to other drugs, medicaments and biological substances
CPT/HCPCS: 71045; 99283

== ENCOUNTER 2022-12-13 11:02 | Emergency (ER) | payer MEDICARE, OTHER ==
[~2022-12-13] VITALS: Ht 188 cm; Wt 101.8 kg
[~2022-12-13 11:02] MED LIST changes: +APIX5TAB PO; +ATOR10TA PO; +CLON0.1T2 PO; +CLON0.5T4 PO; +DILT120C78 PO; +FINA5TAB41 PO; +FLUT1DIS4 IH; +FLUV100T22 PO; +HYDR50CA7 PO; +METF-1211 PO; +OLAN5TAB52 PO; +OLAN5TAB94 PO; -OMEP20CA12 PO; +PANT40TA54 PO; -PARO40TA72 PO; +TAMS-13 PO; -TOPI25 PO
[2022-12-13] MEDS ORDERED: PredniSONE 20 MG TABLET PO ONE (12:30)
[2022-12-13 13:00] LABS: EOSINOPHILS % (AUTO) 0.9 % (1.0-6.0); HEMATOCRIT 44.8 % (41-53); HEMOGLOBIN 14.7 g/dL (13.5-17.5); LYMPHOCYTES # (AUTO) 1.2 K/uL (1.0-4.8); LYMPHOCYTES % (AUTO) 16.2 % (22.0-44.0); MEAN CORPUSCULAR HEMOGLOBIN 27.4 pg (26.0-34.0); MEAN CORPUSCULAR HGB CONC 32.9 G/dL (31.0-37.0); MEAN CORPUSCULAR VOLUME 83 fL (80-100); MONOCYTES # (AUTO) 0.4 K/uL (0.1-1.0); MONOCYTES % (AUTO) 5.6 % (2.0-9.0); NEUTROPHILS # (AUTO) 5.7 K/uL (1.8-7.7); NEUTROPHILS % (AUTO) 76.3 % (40.0-70.0); PLATELET COUNT (AUTO) 298 K/uL (150-450); RED BLOOD CELL COUNT(AUTO) 5.37 MIL/uL (4.50-5.90); RED CELL DISTRIBUTION WIDTH 14.3 % (11.5-14.5)
[2022-12-13 13:11] LABS: ANION GAP 13 mmol/L (8-16); CALCIUM, TOTAL 9.3 mg/dL (8.8-10.5); CARBON DIOXIDE 25 mmol/L (22-29); CHLORIDE 104 mmol/L (98-107); CREATININE 0.86 mg/dL (0.60-1.30); GLOMERULAR FILTR. RATE CALC > 60 mL/min (>60); GLUCOSE,RANDOM 107 mg/dL (70-110); SODIUM SERUM 142 mmol/L (136-145)
[2022-12-13 13:17] LABS: ALANINE AMINOTRANSFERASE 32 U/L (12-78); ALBUMIN 3.4 g/dL (3.4-5.0); ALKALINE PHOSPHATASE 98 U/L (46-116); ASPARTATE AMINOTRANSFERASE 20 U/L (15-37); BILIRUBIN,TOTAL 0.4 mg/dL (0.1-1.0); CREATINE KINASE, TOTAL ONLY 52 U/L (39-308)
[2022-12-13 13:40] VITALS: PULSE 81; RESP 22; O2SAT 96
[2022-12-13 13:43] LABS: B-TYPE NATRIURETIC PEPTIDE < 5 pg/mL (0-100)
[2022-12-13] MEDS ORDERED: IPRATROPIUM BROMIDE 0.5 MG/2.5 ML NEB SOLUTION NEB ONE (13:45)
[2022-12-13] MEDS ORDERED: ALBUTEROL SULFATE 2.5 MG/0.5 ML NEB SOLUTION NEB ONE (13:45)
[2022-12-13 13:55] VITALS: PULSE 84; RESP 19; O2SAT 93
[2022-12-13] MEDS ORDERED: PRED-554 PO (14:11)
[2022-12-13] MEDS ORDERED: ACYC-138 PO (14:11)
[2022-12-13 14:13] VITALS: BP 145/72; PULSE 76; RESP 22; TEMP 98.1
[2022-12-13] MEDS ORDERED: ALBU2.5V39 NEB (14:13)
[2022-12-13 14:47] LABS: COVID AG,FIA SOURCE NASAL SWAB
== END 2022-12-13 15:06 | disposition home or self-care (01) ==
LOC: EMS 11:05
DX: G51.0 Bell's palsy (principal); J44.1 Chronic obstructive pulmonary disease with (acute) exacerbation; F41.9 Anxiety disorder, unspecified; M19.90 Unspecified osteoarthritis, unspecified site; F32.A Depression, unspecified; E78.00 Pure hypercholesterolemia, unspecified; I10 Essential (primary) hypertension; F20.9 Schizophrenia, unspecified; N40.0 Benign prostatic hyperplasia without lower urinary tract symptoms; Z87.891 Personal history of nicotine dependence; Z98.890 Other specified postprocedural states; Z88.8 Allergy status to other drugs, medicaments and biological substances; Z20.822 Contact with and (suspected) exposure to COVID-19
CPT/HCPCS: 99285; 70450; 71045; 87426; 80053; 82550; 83880; 84484; 85025; 85379; 87040; 94640; 93005; J7512; C9803; J7613

== ENCOUNTER 2022-12-16 10:45 | Inpatient (IN) | payer MEDICARE, OTHER ==
[~2022-12-16] VITALS: Ht 188 cm; Wt 102.5 kg
[~2022-12-16 10:45] MED LIST changes: +ACYC-138 PO; +ALBU2.5V39 NEB; +PRED-554 PO
[2022-12-16] MEDS ORDERED: ALBUTEROL SULFATE HFA 90 MCG/PUFF 8 GM INHALER IH ONE (11:00)
[2022-12-16] MEDS ORDERED: LORazepam 2 MG/ML VIAL IVP ONE ×2 (11:00→12:45)
[2022-12-16] MEDS ORDERED: MethylPREDNISolone SOD SUCC 125 MG/2 ML VIAL IVP ONE (11:00)
[2022-12-16 11:20] LABS: COVID AG,FIA SOURCE NASOPHARYNGEAL
[2022-12-16 11:28] LABS: BASOPHILS % (AUTO) 0.1 % (0.0-2.0); EOSINOPHILS % (AUTO) 0 % (1.0-6.0); HEMATOCRIT 43.5 % (41-53); LYMPHOCYTES # (AUTO) 0.6 K/uL (1.0-4.8); MEAN CORPUSCULAR HEMOGLOBIN 26.7 pg (26.0-34.0); MEAN CORPUSCULAR HGB CONC 32.2 G/dL (31.0-37.0); MEAN CORPUSCULAR VOLUME 83 fL (80-100); MONOCYTES # (AUTO) 0.3 K/uL (0.1-1.0); MONOCYTES % (AUTO) 3.3 % (2.0-9.0); NEUTROPHILS # (AUTO) 7.3 K/uL (1.8-7.7); NEUTROPHILS % (AUTO) 89.6 % (40.0-70.0); PLATELET COUNT (AUTO) 301 K/uL (150-450); RED BLOOD CELL COUNT(AUTO) 5.23 MIL/uL (4.50-5.90); RED CELL DISTRIBUTION WIDTH 14.3 % (11.5-14.5); WHITE BLOOD COUNT (AUTO) 8.1 K/uL (4.5-11.0)
[2022-12-16 11:32] LABS: ANION GAP 8 mmol/L (8-16); CALCIUM, TOTAL 9.7 mg/dL (8.8-10.5); CARBON DIOXIDE 27 mmol/L (22-29); CHLORIDE 103 mmol/L (98-107); CREATININE 1.09 mg/dL (0.60-1.30); GLOMERULAR FILTR. RATE CALC > 60 mL/min (>60); GLUCOSE,RANDOM 111 mg/dL (70-110); POTASSIUM 3.7 mmol/L (3.5-5.1); SODIUM SERUM 138 mmol/L (136-145); UREA NITROGEN, BLOOD 30 mg/dL (7-18)
[2022-12-16 11:37] LABS: ALANINE AMINOTRANSFERASE 42 U/L (12-78); ALBUMIN 3.5 g/dL (3.4-5.0); ALKALINE PHOSPHATASE 92 U/L (46-116); ASPARTATE AMINOTRANSFERASE 28 U/L (15-37); BILIRUBIN,TOTAL 0.7 mg/dL (0.1-1.0); LIPASE 32 U/L (16-77); TOTAL PROTEIN, SERUM 6.9 g/dL (6.4-8.2)
[2022-12-16 11:39] LABS: B-TYPE NATRIURETIC PEPTIDE 7 pg/mL (0-100); TROPONIN I-HIGH SENSITIVITY 5 ng/L (<76)
[2022-12-16 11:40] LABS: LACTIC ACID 1.1 mmol/L (0.4-2.0)
[2022-12-16 11:42] LABS: SARS-COV2 (COVID) ANTIGEN,FIA Negative (Negative)
[2022-12-16 11:43] LABS: INFLUENZA TYPE A NEGATIVE FOR TYPE A (NEGATIVE); INFLUENZA TYPE B NEGATIVE FOR TYPE B (NEGATIVE)
[2022-12-16] MEDS ORDERED: AZITHROMYCIN 500 MG/NS 250 ML IV ONE (12:45)
[2022-12-16] MEDS ORDERED: ONDANSETRON HCL 4 MG/2 ML VIAL IVP PRN (15:15)
[2022-12-16] MEDS ORDERED: BISACODYL 10 MG RECTAL RECTAL SUPPOSITORY PR PRN (15:15)
[2022-12-16] MEDS ORDERED: ALBUTEROL SULFATE 2.5 MG/0.5 ML NEB SOLUTION NEB PRN (15:15)
[2022-12-16] MEDS ORDERED: ACETAMINOPHEN 325 MG TABLET PO PRN (15:15)
[2022-12-16] MEDS ORDERED: HYDROCODONE/ACETAMINOPHEN 5-325 MG TABLET PO PRN (15:15)
[2022-12-16] MEDS ORDERED: MAGNESIUM HYDROXIDE SUSPENSION 30 ML UDCUP PO PRN (15:15)
[2022-12-16] MEDS ORDERED: MORPHINE SULFATE 2 MG/ML SYRINGE IVP PRN (15:15)
[2022-12-16] MEDS ORDERED: ClonazePAM 0.5 MG TABLET PO PRN (15:15)
[2022-12-16] MEDS ORDERED: IPRATROPIUM BROMIDE 0.5 MG/2.5 ML NEB SOLUTION NEB PRN (15:15)
[2022-12-16 15:54] LABS: APPEARANCE,URINE CLEAR (CLEAR); BILIRUBIN,URINE NEGATIVE (NEGATIVE); COLOR,URINE YELLOW (YELLOW); GLUCOSE, URINE (UA) TRACE mg/dL (NEGATIVE); KETONES,URINE NEGATIVE (NEGATIVE); LEUKOCYTE ESTERASE ,URINE TRACE (NEGATIVE); NITRATE,URINE NEGATIVE (NEGATIVE); OCCULT BLOOD,URINE NEGATIVE (NEGATIVE); PROTEIN,URINE 30-70 mg/dL (NEGATIVE); SPECIFIC GRAVITIY, URINE 1.035 (1.003-1.030); UROBILINOGEN,URINE <=1.0 mg/dL (<=1.0)
[2022-12-16 15:59] LABS: ALCOHOL, URINE DRUG SCREEN NEGATIVE (NEGATIVE); AMPHET/METH SCREEN,URINE NEGATIVE (NEGATIVE); BARBITURATE SCREEN, URINE NEGATIVE (NEGATIVE); BENZODIAZEPINES SCREEN,URINE POSITIVE (NEGATIVE); CANNABINOID SCREEN,URINE NEGATIVE (NEGATIVE); COCAINE SCREEN,URINE NEGATIVE (NEGATIVE); METHADONE SCREEN, URINE NEGATIVE (NEGATIVE); OPIATE SCREEN,URINE NEGATIVE (NEGATIVE); PHENCYCLIDINE SCREEN,URINE NEGATIVE (NEGATIVE)
[2022-12-16] MEDS ORDERED: HEPARIN SODIUM,PORCINE 5,000 UNITS/ML VIAL SQ SCH (16:00)
[2022-12-16] MEDS ORDERED: REMDESIVIR 200 MG in SODIUM CHLORIDE 0.9% 250 ML IV ONE (16:00)
[2022-12-16] MEDS: BENZONATATE 100 MG CAPSULE PO SCH ×2 (16:01→20:22)
[2022-12-16] MEDS: CefTRIAXone 1 GM/DEXTROSE 50 ML IV SCH (16:01)
[2022-12-16 16:08] LABS: BACTERIA,URINE None Seen /HPF (None Seen); RBC,URINE 0-2 /HPF (0-2); WBC,URINE 0-2 /HPF (0-5)
[2022-12-16] MEDS: MetFORMIN HCL 500 MG TABLET PO SCH (16:52)
[2022-12-16] MEDS: MethylPREDNISolone SOD SUCC 125 MG/2 ML VIAL IVP SCH ×2 (17:08→23:52)
[2022-12-16] MEDS: HydrOXYzine PAMOATE 50 MG CAPSULE PO PRN (17:46)
[2022-12-16] MEDS: ZOLPIDEM TARTRATE 5 MG TABLET PO PRN (18:46)
[2022-12-16] MEDS: GuaiFENesin SR 600 MG ER TABLET PO SCH (20:22)
[2022-12-16] MEDS: OLANZapine 5 MG RAPDIS TABLET PO SCH (20:22)
[2022-12-16] MEDS: TAMSULOSIN HCL 0.4 MG CAPSULE PO SCH (20:23)
[2022-12-16] MEDS: APIXABAN 5 MG TABLET PO SCH (20:23)
[2022-12-16] MEDS: DOCUSATE SODIUM 100 MG CAPSULE PO SCH (20:23)
[2022-12-16] MEDS: CloNIDine HCL 0.1 MG TABLET PO SCH (20:23)
[2022-12-16] MEDS: IPRATROPIUM BROMIDE 0.5 MG/2.5 ML NEB SOLUTION NEB SCH (20:24)
[2022-12-16] MEDS: ALBUTEROL SULFATE 2.5 MG/0.5 ML NEB SOLUTION NEB SCH (20:24)
[2022-12-16 20:25] VITALS: PULSE 85; RESP 20; RESP 24; O2SAT 96
[2022-12-16 22:56] VITALS: BP 126/77; PULSE 61; RESP 20; TEMP 97.6
[2022-12-17] VITALS (9 sets, daily range): BP systolic 121–138; BP diastolic 74–87; PULSE 59–86; RESP 20–26; TEMP 96.9–97.8; O2SAT 95–99
[2022-12-17] MEDS: IPRATROPIUM BROMIDE 0.5 MG/2.5 ML NEB SOLUTION NEB SCH ×5 (02:00→19:54)
[2022-12-17] MEDS: ALBUTEROL SULFATE 2.5 MG/0.5 ML NEB SOLUTION NEB SCH ×5 (02:00→19:54)
[2022-12-17] MEDS: MethylPREDNISolone SOD SUCC 125 MG/2 ML VIAL IVP SCH ×4 (05:49→23:46)
[2022-12-17 07:26] LABS: ALANINE AMINOTRANSFERASE 40 U/L (12-78); ALKALINE PHOSPHATASE 80 U/L (46-116); ANION GAP 8 mmol/L (8-16); ASPARTATE AMINOTRANSFERASE 22 U/L (15-37); BILIRUBIN,TOTAL 0.4 mg/dL (0.1-1.0); CALCIUM, TOTAL 9.2 mg/dL (8.8-10.5); CARBON DIOXIDE 27 mmol/L (22-29); CHLORIDE 105 mmol/L (98-107); CREATININE 1.08 mg/dL (0.60-1.30); GLOMERULAR FILTR. RATE CALC > 60 mL/min (>60); GLUCOSE,RANDOM 163 mg/dL (70-110); POTASSIUM 3.8 mmol/L (3.5-5.1); SODIUM SERUM 140 mmol/L (136-145); TOTAL PROTEIN, SERUM 6.3 g/dL (6.4-8.2); UREA NITROGEN, BLOOD 31 mg/dL (7-18)
[2022-12-17] MEDS: FLUTICASONE/VILANTEROL 200-25 MCG/INH INHALER [14] IH SCH (08:31)
[2022-12-17] MEDS: BENZONATATE 100 MG CAPSULE PO SCH ×3 (08:35→20:11)
[2022-12-17] MEDS: GuaiFENesin SR 600 MG ER TABLET PO SCH ×2 (08:36→20:11)
[2022-12-17] MEDS: OLANZapine 5 MG RAPDIS TABLET PO SCH ×2 (08:40→20:11)
[2022-12-17] MEDS: ATORVASTATIN CALCIUM 10 MG TABLET PO SCH (08:40)
[2022-12-17] MEDS: DOCUSATE SODIUM 100 MG CAPSULE PO SCH ×2 (08:41→20:11)
[2022-12-17] MEDS: MetFORMIN HCL 500 MG TABLET PO SCH ×2 (08:41→18:50)
[2022-12-17] MEDS: DILTIAZEM HCL CD 120 MG ER CAPSULE PO SCH (08:41)
[2022-12-17] MEDS: FINASTERIDE 5 MG TABLET PO SCH (08:41)
[2022-12-17] MEDS: PANTOPRAZOLE SODIUM 40 MG DR TABLET PO SCH (08:41)
[2022-12-17] MEDS: APIXABAN 5 MG TABLET PO SCH ×2 (08:42→20:11)
[2022-12-17] MEDS ORDERED: ATORVASTATIN CALCIUM 10 MG TABLET PO SCH (09:00)
[2022-12-17] MEDS: LORazepam 1 MG TABLET PO PRN (10:47)
[2022-12-17] MEDS ORDERED: SODIUM CHLORIDE 0.9% 500 ML IV ONE (13:19)
[2022-12-17] MEDS: AZITHROMYCIN 500 MG/NS 250 ML IV SCH (13:28)
[2022-12-17] MEDS: CefTRIAXone 1 GM/DEXTROSE 50 ML IV SCH (15:44)
[2022-12-17] MEDS: REMDESIVIR 100 MG in SODIUM CHLORIDE 0.9% 250 ML IV SCH (16:32)
[2022-12-17] MEDS: TAMSULOSIN HCL 0.4 MG CAPSULE PO SCH (20:11)
[2022-12-17] MEDS: ZOLPIDEM TARTRATE 5 MG TABLET PO PRN (20:11)
[2022-12-17] MEDS: CloNIDine HCL 0.1 MG TABLET PO SCH (20:11)
[2022-12-18] MEDS: IPRATROPIUM BROMIDE 0.5 MG/2.5 ML NEB SOLUTION NEB SCH ×3 (02:00→20:00)
[2022-12-18] MEDS: ALBUTEROL SULFATE 2.5 MG/0.5 ML NEB SOLUTION NEB SCH ×3 (02:00→20:00)
[2022-12-18 03:58] VITALS: BP 128/77; PULSE 58; RESP 20; TEMP 97.4
[2022-12-18] MEDS: MethylPREDNISolone SOD SUCC 125 MG/2 ML VIAL IVP SCH ×3 (05:52→18:55)
[2022-12-18 08:09] VITALS: PULSE 80; RESP 22; O2SAT 95
[2022-12-18 08:14] VITALS: PULSE 80; RESP 22; O2SAT 95
[2022-12-18 08:17] VITALS: BP 128/78; PULSE 76; RESP 20; TEMP 98.2
[2022-12-18 08:24] VITALS: PULSE 96; RESP 22; O2SAT 97
[2022-12-18 08:24] LABS: ALANINE AMINOTRANSFERASE 36 U/L (12-78); ALBUMIN 2.8 g/dL (3.4-5.0); ALKALINE PHOSPHATASE 70 U/L (46-116); ASPARTATE AMINOTRANSFERASE 21 U/L (15-37); BILIRUBIN,TOTAL 0.3 mg/dL (0.1-1.0); CALCIUM, TOTAL 9.2 mg/dL (8.8-10.5); CHLORIDE 104 mmol/L (98-107); CREATININE 0.88 mg/dL (0.60-1.30); GLOMERULAR FILTR. RATE CALC > 60 mL/min (>60); GLUCOSE,RANDOM 131 mg/dL (70-110); POTASSIUM 4.3 mmol/L (3.5-5.1); SODIUM SERUM 140 mmol/L (136-145); TOTAL PROTEIN, SERUM 5.6 g/dL (6.4-8.2); UREA NITROGEN, BLOOD 29 mg/dL (7-18)
[2022-12-18 08:28] LABS: ANION GAP 10 mmol/L (8-16); CARBON DIOXIDE 26 mmol/L (22-29)
[2022-12-18] MEDS: PANTOPRAZOLE SODIUM 40 MG DR TABLET PO SCH (09:44)
[2022-12-18] MEDS: GuaiFENesin SR 600 MG ER TABLET PO SCH ×2 (09:44→22:28)
[2022-12-18] MEDS: DILTIAZEM HCL CD 120 MG ER CAPSULE PO SCH (09:44)
[2022-12-18] MEDS: MetFORMIN HCL 500 MG TABLET PO SCH ×2 (09:44→18:55)
[2022-12-18] MEDS: DOCUSATE SODIUM 100 MG CAPSULE PO SCH ×2 (09:45→22:27)
[2022-12-18] MEDS: APIXABAN 5 MG TABLET PO SCH ×2 (09:45→22:27)
[2022-12-18] MEDS: FINASTERIDE 5 MG TABLET PO SCH (09:45)
[2022-12-18] MEDS: FLUTICASONE/VILANTEROL 200-25 MCG/INH INHALER [14] IH SCH (09:45)
[2022-12-18] MEDS: ATORVASTATIN CALCIUM 10 MG TABLET PO SCH (09:45)
[2022-12-18] MEDS: OLANZapine 5 MG RAPDIS TABLET PO SCH ×2 (09:45→22:35)
[2022-12-18] MEDS: BENZONATATE 100 MG CAPSULE PO SCH ×3 (09:49→22:28)
[2022-12-18] MEDS: LORazepam 1 MG TABLET PO PRN (09:49)
[2022-12-18] MEDS: AZITHROMYCIN 500 MG/NS 250 ML IV SCH (12:59)
[2022-12-18] MEDS: CefTRIAXone 1 GM/DEXTROSE 50 ML IV SCH (15:05)
[2022-12-18] MEDS: REMDESIVIR 100 MG in SODIUM CHLORIDE 0.9% 250 ML IV SCH (17:23)
[2022-12-18 20:35] VITALS: BP 129/72; PULSE 72; RESP 20; TEMP 98.3
[2022-12-18] MEDS: TAMSULOSIN HCL 0.4 MG CAPSULE PO SCH (22:28)
[2022-12-18] MEDS: CloNIDine HCL 0.1 MG TABLET PO SCH (22:29)
[2022-12-18] MEDS: ZOLPIDEM TARTRATE 5 MG TABLET PO PRN (22:31)
[2022-12-19] VITALS (7 sets, daily range): BP systolic 122–128; BP diastolic 70–96; PULSE 61–85; RESP 20–22; TEMP 97.5–98.7; O2SAT 95–98
[2022-12-19] MEDS: MethylPREDNISolone SOD SUCC 125 MG/2 ML VIAL IVP SCH ×4 (00:24→17:35)
[2022-12-19] MEDS: IPRATROPIUM BROMIDE 0.5 MG/2.5 ML NEB SOLUTION NEB SCH ×5 (02:00→20:43)
[2022-12-19] MEDS: ALBUTEROL SULFATE 2.5 MG/0.5 ML NEB SOLUTION NEB SCH ×5 (02:00→20:43)
[2022-12-19 08:07] LABS: ALANINE AMINOTRANSFERASE 42 U/L (12-78); ALBUMIN 2.6 g/dL (3.4-5.0); ALKALINE PHOSPHATASE 68 U/L (46-116); ANION GAP 7 mmol/L (8-16); ASPARTATE AMINOTRANSFERASE 24 U/L (15-37); BILIRUBIN,TOTAL 0.3 mg/dL (0.1-1.0); CALCIUM, TOTAL 8.6 mg/dL (8.8-10.5); CARBON DIOXIDE 28 mmol/L (22-29); CHLORIDE 105 mmol/L (98-107); CREATININE 0.86 mg/dL (0.60-1.30); GLOMERULAR FILTR. RATE CALC > 60 mL/min (>60); GLUCOSE,RANDOM 122 mg/dL (70-110); POTASSIUM 4.1 mmol/L (3.5-5.1); SODIUM SERUM 140 mmol/L (136-145); TOTAL PROTEIN, SERUM 5.3 g/dL (6.4-8.2); UREA NITROGEN, BLOOD 30 mg/dL (7-18)
[2022-12-19] MEDS: ATORVASTATIN CALCIUM 10 MG TABLET PO SCH (09:00)
[2022-12-19] MEDS: FLUTICASONE/VILANTEROL 200-25 MCG/INH INHALER [14] IH SCH (10:25)
[2022-12-19] MEDS: DILTIAZEM HCL CD 120 MG ER CAPSULE PO SCH (10:26)
[2022-12-19] MEDS: FINASTERIDE 5 MG TABLET PO SCH (10:26)
[2022-12-19] MEDS: GuaiFENesin SR 600 MG ER TABLET PO SCH ×2 (10:27→20:26)
[2022-12-19] MEDS: BENZONATATE 100 MG CAPSULE PO SCH ×3 (10:27→20:26)
[2022-12-19] MEDS: OLANZapine 5 MG RAPDIS TABLET PO SCH (10:27)
[2022-12-19] MEDS: MetFORMIN HCL 500 MG TABLET PO SCH ×2 (10:29→17:34)
[2022-12-19] MEDS: DOCUSATE SODIUM 100 MG CAPSULE PO SCH ×2 (10:29→20:25)
[2022-12-19] MEDS: PANTOPRAZOLE SODIUM 40 MG DR TABLET PO SCH (10:29)
[2022-12-19] MEDS: APIXABAN 5 MG TABLET PO SCH ×2 (10:29→20:25)
[2022-12-19] MEDS ORDERED: LURASIDONE HCL 20 MG TABLET PO PRN (11:45)
[2022-12-19] MEDS: LORazepam 1 MG TABLET PO PRN (12:19)
[2022-12-19] MEDS: AZITHROMYCIN 500 MG/NS 250 ML IV SCH (13:00)
[2022-12-19] MEDS: CefTRIAXone 1 GM/DEXTROSE 50 ML IV SCH (15:50)
[2022-12-19 15:52] LABS: ABG BASE EXCESS -0.2 mmol/L (-2.0-3.0); ABG CARBOXYHEMOGLOBIN 0.3 % (0.0-1.5); ABG HCO3 24.7 mmol/L (22.0-26.0); ABG METHEMOGLOBIN 0.2 % (0.0-1.5); ABG OXYGEN CONTENT 19.4 mL/dL (15.0-23.0); ABG OXYGEN SATURATION 98.5 % (95.0-98.0); ABG PCO2 36 mmHg (35-45); ABG PH 7.444 (7.35-7.450); ABG TOTAL HEMOGLOBIN 13.9 G/dL (12.0-18.0); PO2, ARTERIAL BG 132.4 mmHg (79.0-87.0); SOURCE, BLOOD GAS ARTERIAL; TEMPERATURE, FAHRENHEIT, BG 98.6 FAHREN (96.0-98.6)
[2022-12-19 15:53] LABS: ABG A-A DIFF O2 25.2 mmHg (10-20.0); ALLEN TEST, BLOOD GAS Positive; O2 DEVICE,BLOOD GAS CANNULA (ROOM AIR); SITE, BLOOD GAS LFT RADIAL
[2022-12-19] MEDS: LURASIDONE HCL 40 MG TABLET PO SCH (17:34)
[2022-12-19] MEDS: REMDESIVIR 100 MG in SODIUM CHLORIDE 0.9% 250 ML IV SCH (18:20)
[2022-12-19] MEDS: CloNIDine HCL 0.1 MG TABLET PO SCH (20:25)
[2022-12-19] MEDS: FluvoxaMINE MALEATE 50 MG TABLET PO SCH (20:26)
[2022-12-19] MEDS: TAMSULOSIN HCL 0.4 MG CAPSULE PO SCH (20:26)
[2022-12-19] MEDS: ZOLPIDEM TARTRATE 5 MG TABLET PO PRN (20:26)
[2022-12-19] MEDS: HydrOXYzine PAMOATE 50 MG CAPSULE PO PRN (21:11)
[2022-12-20] VITALS (9 sets, daily range): BP systolic 116–144; BP diastolic 64–89; PULSE 58–73; RESP 18–22; TEMP 97.4–97.9; O2SAT 98–100
[2022-12-20] MEDS: MethylPREDNISolone SOD SUCC 125 MG/2 ML VIAL IVP SCH ×4 (00:45→17:16)
[2022-12-20] MEDS: IPRATROPIUM BROMIDE 0.5 MG/2.5 ML NEB SOLUTION NEB SCH ×5 (02:00→20:18)
[2022-12-20] MEDS: ALBUTEROL SULFATE 2.5 MG/0.5 ML NEB SOLUTION NEB SCH ×5 (02:00→20:18)
[2022-12-20] MEDS: BENZONATATE 100 MG CAPSULE PO SCH ×3 (08:02→20:47)
[2022-12-20] MEDS: FLUTICASONE/VILANTEROL 200-25 MCG/INH INHALER [14] IH SCH (08:02)
[2022-12-20] MEDS: GuaiFENesin SR 600 MG ER TABLET PO SCH ×2 (08:02→20:47)
[2022-12-20] MEDS: MetFORMIN HCL 500 MG TABLET PO SCH ×2 (08:02→17:15)
[2022-12-20 08:03] LABS: ALANINE AMINOTRANSFERASE 64 U/L (12-78); ALBUMIN 2.6 g/dL (3.4-5.0); ALKALINE PHOSPHATASE 75 U/L (46-116); ANION GAP 7 mmol/L (8-16); ASPARTATE AMINOTRANSFERASE 33 U/L (15-37); BILIRUBIN,TOTAL 0.3 mg/dL (0.1-1.0); CALCIUM, TOTAL 8.6 mg/dL (8.8-10.5); CARBON DIOXIDE 28 mmol/L (22-29); CHLORIDE 104 mmol/L (98-107); CREATININE 0.82 mg/dL (0.60-1.30); GLOMERULAR FILTR. RATE CALC > 60 mL/min (>60); GLUCOSE,RANDOM 138 mg/dL (70-110); POTASSIUM 4.1 mmol/L (3.5-5.1); SODIUM SERUM 139 mmol/L (136-145); TOTAL PROTEIN, SERUM 5.2 g/dL (6.4-8.2); UREA NITROGEN, BLOOD 29 mg/dL (7-18)
[2022-12-20] MEDS: APIXABAN 5 MG TABLET PO SCH ×2 (08:03→20:46)
[2022-12-20] MEDS: FINASTERIDE 5 MG TABLET PO SCH (08:03)
[2022-12-20] MEDS: DOCUSATE SODIUM 100 MG CAPSULE PO SCH ×2 (08:03→20:46)
[2022-12-20] MEDS: ATORVASTATIN CALCIUM 10 MG TABLET PO SCH (08:03)
[2022-12-20] MEDS: DILTIAZEM HCL CD 120 MG ER CAPSULE PO SCH (08:03)
[2022-12-20] MEDS: FluvoxaMINE MALEATE 50 MG TABLET PO SCH ×2 (08:03→20:47)
[2022-12-20] MEDS: PANTOPRAZOLE SODIUM 40 MG DR TABLET PO SCH (08:03)
[2022-12-20] MEDS: LORazepam 1 MG TABLET PO PRN (09:00)
[2022-12-20] MEDS: AZITHROMYCIN 500 MG/NS 250 ML IV SCH (13:20)
[2022-12-20] MEDS: CefTRIAXone 1 GM/DEXTROSE 50 ML IV SCH (15:23)
[2022-12-20] MEDS: LURASIDONE HCL 40 MG TABLET PO SCH (17:15)
[2022-12-20] MEDS: REMDESIVIR 100 MG in SODIUM CHLORIDE 0.9% 250 ML IV SCH (17:15)
[2022-12-20] MEDS: CloNIDine HCL 0.1 MG TABLET PO SCH (20:46)
[2022-12-20] MEDS: TAMSULOSIN HCL 0.4 MG CAPSULE PO SCH (20:47)
[2022-12-21] MEDS: MethylPREDNISolone SOD SUCC 125 MG/2 ML VIAL IVP SCH ×3 (00:42→12:19)
[2022-12-21] MEDS: ALBUTEROL SULFATE 2.5 MG/0.5 ML NEB SOLUTION NEB SCH ×3 (01:48→14:00)
[2022-12-21] MEDS: IPRATROPIUM BROMIDE 0.5 MG/2.5 ML NEB SOLUTION NEB SCH ×3 (01:48→14:00)
[2022-12-21 04:07] VITALS: BP 124/75; PULSE 58; RESP 20; TEMP 98.9
[2022-12-21] MEDS: DOCUSATE SODIUM 100 MG CAPSULE PO SCH (07:44)
[2022-12-21] MEDS: FLUTICASONE/VILANTEROL 200-25 MCG/INH INHALER [14] IH SCH (07:44)
[2022-12-21] MEDS: BENZONATATE 100 MG CAPSULE PO SCH (07:45)
[2022-12-21] MEDS: DILTIAZEM HCL CD 120 MG ER CAPSULE PO SCH (07:45)
[2022-12-21] MEDS: PANTOPRAZOLE SODIUM 40 MG DR TABLET PO SCH (07:45)
[2022-12-21] MEDS: GuaiFENesin SR 600 MG ER TABLET PO SCH (07:45)
[2022-12-21] MEDS: ATORVASTATIN CALCIUM 10 MG TABLET PO SCH (07:45)
[2022-12-21] MEDS: MetFORMIN HCL 500 MG TABLET PO SCH (07:45)
[2022-12-21] MEDS: FluvoxaMINE MALEATE 50 MG TABLET PO SCH (07:45)
[2022-12-21] MEDS: APIXABAN 5 MG TABLET PO SCH (07:45)
[2022-12-21] MEDS: FINASTERIDE 5 MG TABLET PO SCH (07:46)
[2022-12-21 08:00] VITALS: BP 141/75; PULSE 57; RESP 20; TEMP 97.8
[2022-12-21] MEDS ORDERED: GUAIF600 PO (10:53)
[2022-12-21] MEDS ORDERED: METH4TAB3 PO (10:53)
[2022-12-21] MEDS ORDERED: LURA40TA4 PO (10:53)
[2022-12-21] MEDS ORDERED: BENZ100C68 PO (10:53)
[2022-12-21] MEDS: AZITHROMYCIN 500 MG/NS 250 ML IV SCH (13:00)
[2022-12-21] MEDS: LORazepam 1 MG TABLET PO PRN (14:20)
== END 2022-12-21 16:20 | disposition home or self-care (01) | DRG 177 ==
LOC: EMS 10:50 → 6S 18:18 → 6N 22:00
PROVIDERS: ADMIT Internal Medicine; ATTEND Internal Medicine
PROC: XW033E5 Introduction of Remdesivir Anti-infective into Peripheral Vein, Percutaneous Approach, New Technology Group 5 (ICD-10-PCS; principal; 2022-12-16)
DX: U07.1 COVID-19 (principal); J96.01 Acute respiratory failure with hypoxia; J44.1 Chronic obstructive pulmonary disease with (acute) exacerbation; I48.20 Chronic atrial fibrillation, unspecified; E11.65 Type 2 diabetes mellitus with hyperglycemia; N40.0 Benign prostatic hyperplasia without lower urinary tract symptoms; F17.200 Nicotine dependence, unspecified, uncomplicated; F41.9 Anxiety disorder, unspecified; Z20.822 Contact with and (suspected) exposure to COVID-19; E78.00 Pure hypercholesterolemia, unspecified; F42.9 Obsessive-compulsive disorder, unspecified; M17.0 Bilateral primary osteoarthritis of knee; F25.1 Schizoaffective disorder, depressive type; K21.9 Gastro-esophageal reflux disease without esophagitis; I10 Essential (primary) hypertension; Z88.8 Allergy status to other drugs, medicaments and biological substances; Z79.899 Other long term (current) drug therapy; Z79.84 Long term (current) use of oral hypoglycemic drugs; Z79.01 Long term (current) use of anticoagulants
CPT/HCPCS: 36600; 71045; 80053; 80307; 81001; 82805; 83605; 83690; 83880; 84484; 85025; 87804; 93005; 94640; 99285; J0456; J0696; J2060; J2930; J3535; J7040; J7050; Q9967; 36415-L1; 36415-TC; J7613

== ENCOUNTER 2023-01-27 12:26 | Emergency (ER) | payer MEDICARE, OTHER ==
[~2023-01-27] VITALS: Ht 188 cm; Wt 109.1 kg
[~2023-01-27 12:26] MED LIST changes: -ATOR10TA PO; +BENZ100C68 PO; -CLON0.5T4 PO; +GUAIF600 PO; +LURA40TA4 PO; +METH4TAB3 PO; -OLAN5TAB52 PO; -OLAN5TAB94 PO; -PRED-554 PO; -TAMS-13 PO; +TAMS0.4C34 PO
[2023-01-27 12:28] VITALS: TEMP 98.4
[2023-01-27 13:02] LABS: BASOPHILS % (AUTO) 0.6 % (0.0-2.0); EOSINOPHILS % (AUTO) 0.2 % (1.0-6.0); HEMATOCRIT 43.6 % (41-53); HEMOGLOBIN 14.4 g/dL (13.5-17.5); LYMPHOCYTES # (AUTO) 0.7 K/uL (1.0-4.8); LYMPHOCYTES % (AUTO) 7.5 % (22.0-44.0); MEAN CORPUSCULAR HEMOGLOBIN 27.7 pg (26.0-34.0); MEAN CORPUSCULAR VOLUME 84 fL (80-100); MONOCYTES # (AUTO) 0.6 K/uL (0.1-1.0); MONOCYTES % (AUTO) 5.9 % (2.0-9.0); NEUTROPHILS # (AUTO) 8.5 K/uL (1.8-7.7); NEUTROPHILS % (AUTO) 85.8 % (40.0-70.0); PLATELET COUNT (AUTO) 313 K/uL (150-450); RED BLOOD CELL COUNT(AUTO) 5.18 MIL/uL (4.50-5.90); RED CELL DISTRIBUTION WIDTH 16.4 % (11.5-14.5); WHITE BLOOD COUNT (AUTO) 9.9 K/uL (4.5-11.0)
[2023-01-27 13:56] LABS: ANION GAP 13 mmol/L (8-16); CALCIUM, TOTAL 9.7 mg/dL (8.8-10.5); CARBON DIOXIDE 24 mmol/L (22-29); CHLORIDE 103 mmol/L (98-107); CREATININE 1.06 mg/dL (0.60-1.30); GLOMERULAR FILTR. RATE CALC > 60 mL/min (>60); GLUCOSE,RANDOM 135 mg/dL (70-110); POTASSIUM 3.8 mmol/L (3.5-5.1); SODIUM SERUM 140 mmol/L (136-145); UREA NITROGEN, BLOOD 13 mg/dL (7-18)
[2023-01-27 14:01] LABS: ALANINE AMINOTRANSFERASE 21 U/L (12-78); ALBUMIN 3.5 g/dL (3.4-5.0); ALKALINE PHOSPHATASE 112 U/L (46-116); ASPARTATE AMINOTRANSFERASE 16 U/L (15-37); BILIRUBIN,TOTAL 0.6 mg/dL (0.1-1.0); LIPASE 36 U/L (16-77)
[2023-01-27 14:15] LABS: APPEARANCE,URINE TURBID (CLEAR); BILIRUBIN,URINE NEGATIVE (NEGATIVE); COLOR,URINE DARK BROWN (YELLOW); GLUCOSE, URINE (UA) NEGATIVE (NEGATIVE); KETONES,URINE NEGATIVE (NEGATIVE); LEUKOCYTE ESTERASE ,URINE TRACE (NEGATIVE); NITRATE,URINE NEGATIVE (NEGATIVE); OCCULT BLOOD,URINE LARGE (NEGATIVE); PROTEIN,URINE 300-600,SEE CONFIRM mg/dL (NEGATIVE); SPECIFIC GRAVITIY, URINE 1.026 (1.003-1.030); UROBILINOGEN,URINE <=1.0 mg/dL (<=1.0)
[2023-01-27 14:16] LABS: SULFOSALICYLIC ACID,URINE 3+ (Negative)
[2023-01-27 14:17] LABS: BACTERIA,URINE Moderate /HPF (None Seen); RBC,URINE Full Field /HPF (0-2)
[2023-01-27 15:06] LABS: TROPONIN I-HIGH SENSITIVITY 4 ng/L (<76)
[2023-01-27] MEDS ORDERED: LORazepam 1 MG TABLET PO ONE (16:15)
[2023-01-27 17:30] VITALS: BP 124/75; PULSE 92; RESP 16
[2023-01-27] MEDS ORDERED: ACET-2080 PO (17:38)
[2023-01-27] MEDS ORDERED: PRED-554 PO (17:38)
[2023-01-27] MEDS ORDERED: TAMS0.4C34 PO (17:38)
[2023-01-27] MEDS ORDERED: CLON-595 PO (17:38)
== END 2023-01-27 18:00 | disposition home or self-care (01) ==
LOC: EMS 12:30
DX: N20.9 Urinary calculus, unspecified (principal); F25.1 Schizoaffective disorder, depressive type; J44.1 Chronic obstructive pulmonary disease with (acute) exacerbation; F41.9 Anxiety disorder, unspecified; M19.90 Unspecified osteoarthritis, unspecified site; E78.00 Pure hypercholesterolemia, unspecified; I10 Essential (primary) hypertension; N40.0 Benign prostatic hyperplasia without lower urinary tract symptoms; Z87.891 Personal history of nicotine dependence; Z98.890 Other specified postprocedural states; Z88.8 Allergy status to other drugs, medicaments and biological substances
CPT/HCPCS: 71045; 74176; 80053; 81001; 81002; 83690; 83880; 84484; 85025; 87086; 87186; 93005; 99285; 36415-L1; 36415-TC

== ENCOUNTER 2023-02-13 16:59 | Inpatient (IN) | payer MEDICARE, MEDICAID ==
[~2023-02-13] VITALS: Ht 190.5 cm; Wt 93.0 kg
[~2023-02-13 16:59] MED LIST changes: +ACET-2080 PO; +CLON-595 PO; +PRED-554 PO; -TAMS0.4C34 PO; +TAMS0.4C94 PO
[2023-02-13] MEDS ORDERED: APIX5TAB PO (17:17)
[2023-02-13] MEDS ORDERED: FLUT1BLS18 IH (17:17)
[2023-02-13] MEDS ORDERED: CLON1TAB12 PO (17:17)
[2023-02-13] MEDS ORDERED: OMEP20CA12 PO (17:17)
[2023-02-13] MEDS ORDERED: FLUV50 PO (17:17)
[2023-02-13] MEDS ORDERED: OMEP10 PO (17:17)
[2023-02-13] MEDS ORDERED: ATOR10TA PO (17:17)
[2023-02-13] MEDS ORDERED: TAMS0.4C94 PO (17:17)
[2023-02-13 17:57] LABS: BASOPHILS % (AUTO) 1.6 % (0.0-2.0); EOSINOPHILS % (AUTO) 0.9 % (1.0-6.0); HEMATOCRIT 42.1 % (41-53); LYMPHOCYTES # (AUTO) 1.9 K/uL (1.0-4.8); LYMPHOCYTES % (AUTO) 27.6 % (22.0-44.0); MEAN CORPUSCULAR HEMOGLOBIN 27.5 pg (26.0-34.0); MEAN CORPUSCULAR HGB CONC 33.3 G/dL (31.0-37.0); MEAN CORPUSCULAR VOLUME 83 fL (80-100); MONOCYTES # (AUTO) 0.5 K/uL (0.1-1.0); MONOCYTES % (AUTO) 6.6 % (2.0-9.0); NEUTROPHILS # (AUTO) 4.4 K/uL (1.8-7.7); NEUTROPHILS % (AUTO) 63.3 % (40.0-70.0); PLATELET COUNT (AUTO) 370 K/uL (150-450); RED CELL DISTRIBUTION WIDTH 16.1 % (11.5-14.5)
[2023-02-13 18:05] LABS: ANION GAP 17 mmol/L (8-16); CALCIUM, TOTAL 10.1 mg/dL (8.8-10.5); CARBON DIOXIDE 20 mmol/L (22-29); CHLORIDE 104 mmol/L (98-107); CREATININE 1.36 mg/dL (0.60-1.30); GLOMERULAR FILTR. RATE CALC 52 mL/min (>60); GLUCOSE,RANDOM 143 mg/dL (70-110); SODIUM SERUM 141 mmol/L (136-145); UREA NITROGEN, BLOOD 10 mg/dL (7-18)
[2023-02-13 18:11] LABS: ALANINE AMINOTRANSFERASE 23 U/L (12-78); ALBUMIN 3.6 g/dL (3.4-5.0); ALKALINE PHOSPHATASE 100 U/L (46-116); ASPARTATE AMINOTRANSFERASE 19 U/L (15-37); BILIRUBIN,TOTAL 0.7 mg/dL (0.1-1.0); TOTAL PROTEIN, SERUM 6.9 g/dL (6.4-8.2)
[2023-02-13 18:13] LABS: ALCOHOL, BLOOD (SERUM) < 3 mg/dL (0-10)
[2023-02-13 21:19] LABS: COVID AG,FIA SOURCE NASAL SWAB
[2023-02-13 21:25] LABS: APPEARANCE,URINE CLEAR (CLEAR); BILIRUBIN,URINE NEGATIVE (NEGATIVE); COLOR,URINE YELLOW (YELLOW); GLUCOSE, URINE (UA) NEGATIVE (NEGATIVE); KETONES,URINE NEGATIVE (NEGATIVE); LEUKOCYTE ESTERASE ,URINE LARGE (NEGATIVE); NITRATE,URINE NEGATIVE (NEGATIVE); OCCULT BLOOD,URINE NEGATIVE (NEGATIVE); PROTEIN,URINE 30-70 mg/dL (NEGATIVE); SPECIFIC GRAVITIY, URINE 1.016 (1.003-1.030)
[2023-02-13 21:27] LABS: ALCOHOL, URINE DRUG SCREEN NEGATIVE (NEGATIVE); AMPHET/METH SCREEN,URINE NEGATIVE (NEGATIVE); BARBITURATE SCREEN, URINE NEGATIVE (NEGATIVE); BENZODIAZEPINES SCREEN,URINE NEGATIVE (NEGATIVE); CANNABINOID SCREEN,URINE NEGATIVE (NEGATIVE); COCAINE SCREEN,URINE NEGATIVE (NEGATIVE); METHADONE SCREEN, URINE NEGATIVE (NEGATIVE); OPIATE SCREEN,URINE NEGATIVE (NEGATIVE); PHENCYCLIDINE SCREEN,URINE NEGATIVE (NEGATIVE)
[2023-02-13 21:34] LABS: BACTERIA,URINE Few /HPF (None Seen); RBC,URINE 0-2 /HPF (0-2); SQUAMOUS EPITHELIAL CELL,UR Rare /LPF (None Seen); WBC,URINE 26-50 /HPF (0-5)
[2023-02-13 21:38] LABS: SARS-COV2 (COVID) ANTIGEN,FIA Negative (Negative)
[2023-02-13] MEDS ORDERED: LEVOFLOXACIN 500 MG TABLET PO ONE (22:00)
[2023-02-13] MEDS ORDERED: CefTRIAXone SODIUM 1 GM/VIAL IM ONE (22:00)
[2023-02-13] MEDS ORDERED: POTASSIUM CHLORIDE 10% 40 MEQ/30 ML LIQUID UDCUP PO ONE ×2 (22:00)
[2023-02-13] MEDS ORDERED: LIDOCAINE/PF 1% 2 ML VIAL IM ONE (22:00)
[2023-02-13] MEDS: LORazepam 2 MG TABLET PO PRN (22:15)
[2023-02-14 03:15] VITALS: BP 119/79; PULSE 92; RESP 18; TEMP 98.2
[2023-02-14] MEDS ORDERED: INFLUENZA VIRUS VACCINE QVS 2023-24 (6MO+)/PF 60 MCG/0.5 ML SYRINGE IM. ONE (04:45)
[2023-02-14] MEDS ORDERED: BENZOCAINE/MENTHOL LOZENGE PO PRN (07:15)
[2023-02-14] MEDS ORDERED: LOPERAMIDE HCL 2 MG CAPSULE PO PRN (07:15)
[2023-02-14] MEDS ORDERED: OMEPRAZOLE 20 MG CAPSULE PO PRN (07:15)
[2023-02-14] MEDS ORDERED: MAG HYDROX/ALUMINUM HYD/SIMETH ES 30 ML SUSPENSION UDCUP PO PRN (07:15)
[2023-02-14] MEDS ORDERED: DOCUSATE SODIUM 100 MG CAPSULE PO PRN (07:15)
[2023-02-14] MEDS ORDERED: PETROLATUM,WHITE 28 GM JELLY TP PRN (07:15)
[2023-02-14] MEDS ORDERED: ONDANSETRON HCL 4 MG TABLET PO PRN (07:15)
[2023-02-14] MEDS ORDERED: CloNIDine HCL 0.1 MG TABLET PO PRN (07:15)
[2023-02-14] MEDS ORDERED: BACITRACIN 28 GM OINTMENT TP PRN (07:15)
[2023-02-14] MEDS ORDERED: MAGNESIUM HYDROXIDE SUSPENSION 30 ML UDCUP PO PRN (07:15)
[2023-02-14 09:45] VITALS: BP 115/82; PULSE 87; RESP 18; TEMP 97.7
[2023-02-14] MEDS: CIPROFLOXACIN HCL 250 MG TABLET PO SCH ×2 (11:34→17:06)
[2023-02-14] MEDS: LORazepam 2 MG TABLET PO PRN (11:40)
[2023-02-14] MEDS: ATORVASTATIN CALCIUM 10 MG TABLET PO SCH (12:44)
[2023-02-14] MEDS: TAMSULOSIN HCL 0.4 MG CAPSULE PO SCH (12:44)
[2023-02-14] MEDS: FluvoxaMINE MALEATE 50 MG TABLET PO SCH (12:44)
[2023-02-14] MEDS: FLUTICASONE/SALMETEROL 100-50 MCG/INH INHALER [60] IH SCH (12:45)
[2023-02-14] MEDS: APIXABAN 5 MG TABLET PO SCH (17:07)
[2023-02-14] MEDS: LURASIDONE HCL 80 MG TABLET PO SCH (20:34)
[2023-02-14 21:41] VITALS: BP 118/80; PULSE 84; RESP 18; TEMP 97.9
[2023-02-15 08:24] LABS: ANION GAP 8 mmol/L (8-16); CALCIUM, TOTAL 9.3 mg/dL (8.8-10.5); CARBON DIOXIDE 27 mmol/L (22-29); CHLORIDE 108 mmol/L (98-107); CREATININE 1.04 mg/dL (0.60-1.30); GLOMERULAR FILTR. RATE CALC > 60 mL/min (>60); GLUCOSE,RANDOM 106 mg/dL (70-110); POTASSIUM 4.1 mmol/L (3.5-5.1); SODIUM SERUM 143 mmol/L (136-145); UREA NITROGEN, BLOOD 25 mg/dL (7-18)
[2023-02-15] MEDS: CIPROFLOXACIN HCL 250 MG TABLET PO SCH ×2 (08:35→17:00)
[2023-02-15] MEDS: ATORVASTATIN CALCIUM 10 MG TABLET PO SCH (08:35)
[2023-02-15] MEDS: FLUTICASONE/SALMETEROL 100-50 MCG/INH INHALER [60] IH SCH (08:35)
[2023-02-15] MEDS: APIXABAN 5 MG TABLET PO SCH ×2 (08:35→17:00)
[2023-02-15] MEDS: FluvoxaMINE MALEATE 50 MG TABLET PO SCH (08:36)
[2023-02-15] MEDS: TAMSULOSIN HCL 0.4 MG CAPSULE PO SCH (08:36)
[2023-02-15] MEDS: OMEPRAZOLE 20 MG CAPSULE PO SCH (08:41)
[2023-02-15 09:09] VITALS: BP 94/66; PULSE 102; RESP 17; TEMP 98.1
[2023-02-15 10:13] VITALS: BP 125/69; PULSE 99; RESP 18
[2023-02-15] MEDS: LORazepam 2 MG TABLET PO PRN ×2 (10:15→19:49)
[2023-02-15 20:04] VITALS: BP 101/81; PULSE 92; RESP 18; TEMP 98.1
[2023-02-15] MEDS: LURASIDONE HCL 80 MG TABLET PO SCH (20:06)
[2023-02-16] MEDS: CIPROFLOXACIN HCL 250 MG TABLET PO SCH ×2 (09:12→17:07)
[2023-02-16] MEDS: FluvoxaMINE MALEATE 50 MG TABLET PO SCH (09:12)
[2023-02-16] MEDS: OMEPRAZOLE 20 MG CAPSULE PO SCH (09:13)
[2023-02-16] MEDS: ATORVASTATIN CALCIUM 10 MG TABLET PO SCH (09:13)
[2023-02-16] MEDS: APIXABAN 5 MG TABLET PO SCH ×2 (09:13→17:07)
[2023-02-16] MEDS: TAMSULOSIN HCL 0.4 MG CAPSULE PO SCH (09:13)
[2023-02-16] MEDS: FLUTICASONE/SALMETEROL 100-50 MCG/INH INHALER [60] IH SCH (09:14)
[2023-02-16 09:45] VITALS: BP 119/75; PULSE 78; RESP 16; TEMP 97
[2023-02-16] MEDS: LORazepam 2 MG TABLET PO PRN ×2 (12:53→20:10)
[2023-02-16] MEDS: LURASIDONE HCL 80 MG TABLET PO SCH (20:10)
[2023-02-16 21:56] VITALS: RESP 18
[2023-02-16] MEDS: ZOLPIDEM TARTRATE 10 MG TABLET PO PRN (22:05)
[2023-02-17] MEDS: FLUTICASONE/SALMETEROL 100-50 MCG/INH INHALER [60] IH SCH (09:28)
[2023-02-17] MEDS: APIXABAN 5 MG TABLET PO SCH ×2 (09:28→16:32)
[2023-02-17] MEDS: FluvoxaMINE MALEATE 50 MG TABLET PO SCH (09:28)
[2023-02-17] MEDS: TAMSULOSIN HCL 0.4 MG CAPSULE PO SCH (09:28)
[2023-02-17] MEDS: OMEPRAZOLE 20 MG CAPSULE PO SCH (09:29)
[2023-02-17] MEDS: ATORVASTATIN CALCIUM 10 MG TABLET PO SCH (09:29)
[2023-02-17 09:50] VITALS: BP 120/81; PULSE 76; RESP 18; TEMP 96.7
[2023-02-17] MEDS: HALOPERIDOL 5 MG TABLET PO PRN ×2 (13:18→17:58)
[2023-02-17] MEDS: LORazepam 2 MG TABLET PO PRN ×2 (13:18→17:58)
[2023-02-17 20:30] VITALS: BP 134/68; PULSE 76; RESP 18; TEMP 98
[2023-02-17] MEDS: LURASIDONE HCL 80 MG TABLET PO SCH (21:00)
[2023-02-18] MEDS: FLUTICASONE/SALMETEROL 100-50 MCG/INH INHALER [60] IH SCH (09:56)
[2023-02-18] MEDS: TAMSULOSIN HCL 0.4 MG CAPSULE PO SCH (10:02)
[2023-02-18] MEDS: LORazepam 2 MG TABLET PO PRN ×2 (10:02→15:27)
[2023-02-18] MEDS: OMEPRAZOLE 20 MG CAPSULE PO SCH (10:03)
[2023-02-18] MEDS: ATORVASTATIN CALCIUM 10 MG TABLET PO SCH (10:03)
[2023-02-18] MEDS: HALOPERIDOL 5 MG TABLET PO PRN ×2 (10:03→15:27)
[2023-02-18 10:29] VITALS: BP 138/65; PULSE 80; RESP 18; TEMP 98.1
[2023-02-18] MEDS: FluvoxaMINE MALEATE 50 MG TABLET PO SCH (10:49)
[2023-02-18] MEDS: APIXABAN 5 MG TABLET PO SCH ×2 (10:50→17:03)
[2023-02-18] MEDS: LURASIDONE HCL 80 MG TABLET PO SCH (20:42)
[2023-02-18 21:04] VITALS: BP 129/72; PULSE 82; RESP 17; TEMP 97.6
[2023-02-19] MEDS: HALOPERIDOL 5 MG TABLET PO PRN ×2 (05:38→16:19)
[2023-02-19] MEDS: LORazepam 2 MG TABLET PO PRN ×3 (05:38→19:01)
[2023-02-19] MEDS: TAMSULOSIN HCL 0.4 MG CAPSULE PO SCH (09:04)
[2023-02-19] MEDS: APIXABAN 5 MG TABLET PO SCH ×2 (09:04→16:19)
[2023-02-19] MEDS: OMEPRAZOLE 20 MG CAPSULE PO SCH (09:04)
[2023-02-19] MEDS: FluvoxaMINE MALEATE 50 MG TABLET PO SCH (09:04)
[2023-02-19] MEDS: ATORVASTATIN CALCIUM 10 MG TABLET PO SCH (09:04)
[2023-02-19] MEDS: FLUTICASONE/SALMETEROL 100-50 MCG/INH INHALER [60] IH SCH (09:04)
[2023-02-19 10:34] VITALS: BP 130/72; PULSE 82; RESP 17; TEMP 97.3
[2023-02-19] MEDS ORDERED: ATOR10TA69 PO (15:36)
[2023-02-19] MEDS ORDERED: DILT120C78 PO (15:36)
[2023-02-19] MEDS: ALBUTEROL SULFATE HFA 90 MCG/PUFF 8 GM INHALER IH PRN (16:19)
[2023-02-19] MEDS: LURASIDONE HCL 80 MG TABLET PO SCH (20:44)
[2023-02-19 21:27] VITALS: BP 132/76; PULSE 84; RESP 18; TEMP 97.5
[2023-02-20 09:00] VITALS: BP 109/65; PULSE 73; RESP 18; TEMP 97.5
[2023-02-20] MEDS: FluvoxaMINE MALEATE 50 MG TABLET PO SCH (09:00)
[2023-02-20] MEDS: FLUTICASONE/SALMETEROL 100-50 MCG/INH INHALER [60] IH SCH (09:00)
[2023-02-20] MEDS: OMEPRAZOLE 20 MG CAPSULE PO SCH (09:00)
[2023-02-20] MEDS: APIXABAN 5 MG TABLET PO SCH ×2 (09:01→16:25)
[2023-02-20] MEDS: ATORVASTATIN CALCIUM 10 MG TABLET PO SCH (09:01)
[2023-02-20] MEDS: TAMSULOSIN HCL 0.4 MG CAPSULE PO SCH (09:01)
[2023-02-20] MEDS: ALBUTEROL SULFATE HFA 90 MCG/PUFF 8 GM INHALER IH PRN ×2 (11:26→17:45)
[2023-02-20] MEDS: LORazepam 2 MG TABLET PO PRN ×3 (12:51→21:44)
[2023-02-20] MEDS: HALOPERIDOL 5 MG TABLET PO PRN (14:26)
[2023-02-20 20:07] VITALS: BP 129/76; PULSE 80; RESP 18; TEMP 97.9
[2023-02-20] MEDS: ZOLPIDEM TARTRATE 10 MG TABLET PO PRN (21:44)
[2023-02-21] MEDS: FLUTICASONE/SALMETEROL 100-50 MCG/INH INHALER [60] IH SCH (08:22)
[2023-02-21] MEDS: LORazepam 2 MG TABLET PO PRN ×2 (08:24→12:26)
[2023-02-21] MEDS: FluvoxaMINE MALEATE 50 MG TABLET PO SCH (08:24)
[2023-02-21] MEDS: RisperiDONE 1 MG TABLET PO SCH ×2 (08:24→16:33)
[2023-02-21] MEDS: OMEPRAZOLE 20 MG CAPSULE PO SCH (08:24)
[2023-02-21] MEDS: TAMSULOSIN HCL 0.4 MG CAPSULE PO SCH (08:25)
[2023-02-21] MEDS: ATORVASTATIN CALCIUM 10 MG TABLET PO SCH (08:25)
[2023-02-21] MEDS: APIXABAN 5 MG TABLET PO SCH ×2 (08:25→16:33)
[2023-02-21 13:05] VITALS: TEMP 98
[2023-02-21 13:14] VITALS: BP 140/74; PULSE 79; RESP 18; TEMP 98
[2023-02-21] MEDS: ACETAMINOPHEN 325 MG TABLET PO PRN (13:14)
[2023-02-21] MEDS: ALBUTEROL SULFATE HFA 90 MCG/PUFF 8 GM INHALER IH PRN (14:16)
[2023-02-21 20:28] VITALS: BP 110/77; PULSE 76; RESP 18; TEMP 97.1
[2023-02-21] MEDS: ZOLPIDEM TARTRATE 10 MG TABLET PO PRN (21:31)
[2023-02-21] MEDS: HALOPERIDOL 5 MG TABLET PO PRN (21:31)
[2023-02-22] MEDS: APIXABAN 5 MG TABLET PO SCH ×2 (08:36→16:10)
[2023-02-22] MEDS: FLUTICASONE/SALMETEROL 100-50 MCG/INH INHALER [60] IH SCH (08:37)
[2023-02-22] MEDS: ATORVASTATIN CALCIUM 10 MG TABLET PO SCH (08:37)
[2023-02-22] MEDS: FluvoxaMINE MALEATE 50 MG TABLET PO SCH (08:37)
[2023-02-22] MEDS: TAMSULOSIN HCL 0.4 MG CAPSULE PO SCH (08:37)
[2023-02-22] MEDS: OMEPRAZOLE 20 MG CAPSULE PO SCH (08:38)
[2023-02-22] MEDS: RisperiDONE 1 MG TABLET PO SCH ×2 (08:38→16:09)
[2023-02-22 11:20] VITALS: BP 109/62; PULSE 82; RESP 16; TEMP 97.1
[2023-02-22 20:45] VITALS: BP 139/82; PULSE 79; RESP 19; TEMP 97.3
[2023-02-22] MEDS: HALOPERIDOL 5 MG TABLET PO PRN (21:01)
[2023-02-22] MEDS: ZOLPIDEM TARTRATE 10 MG TABLET PO PRN (21:01)
[2023-02-22] MEDS: ALBUTEROL SULFATE HFA 90 MCG/PUFF 8 GM INHALER IH PRN (22:15)
[2023-02-23] MEDS: FLUTICASONE/SALMETEROL 100-50 MCG/INH INHALER [60] IH SCH (08:41)
[2023-02-23] MEDS: FluvoxaMINE MALEATE 50 MG TABLET PO SCH (08:42)
[2023-02-23] MEDS: TAMSULOSIN HCL 0.4 MG CAPSULE PO SCH (08:42)
[2023-02-23] MEDS: ATORVASTATIN CALCIUM 10 MG TABLET PO SCH (08:42)
[2023-02-23] MEDS: OMEPRAZOLE 20 MG CAPSULE PO SCH (08:42)
[2023-02-23] MEDS: RisperiDONE 1 MG TABLET PO SCH ×2 (08:42→16:12)
[2023-02-23] MEDS: APIXABAN 5 MG TABLET PO SCH ×2 (08:42→16:12)
[2023-02-23 09:00] VITALS: BP 100/54; PULSE 71; RESP 17; TEMP 98.4
[2023-02-23] MEDS: ZOLPIDEM TARTRATE 10 MG TABLET PO PRN (21:22)
[2023-02-23 21:55] VITALS: BP 110/70; PULSE 80; RESP 18; TEMP 97.4
[2023-02-23] MEDS: ACETAMINOPHEN 325 MG TABLET PO PRN (21:59)
[2023-02-23 22:35] VITALS: BP 110/70; PULSE 89; RESP 19; TEMP 97.2
[2023-02-23 22:59] VITALS: RESP 18
[2023-02-24] MEDS: FLUTICASONE/SALMETEROL 100-50 MCG/INH INHALER [60] IH SCH (09:58)
[2023-02-24] MEDS: ATORVASTATIN CALCIUM 10 MG TABLET PO SCH (10:01)
[2023-02-24] MEDS: FluvoxaMINE MALEATE 50 MG TABLET PO SCH (10:02)
[2023-02-24] MEDS: APIXABAN 5 MG TABLET PO SCH ×2 (10:03→16:32)
[2023-02-24] MEDS: TAMSULOSIN HCL 0.4 MG CAPSULE PO SCH (10:03)
[2023-02-24] MEDS: OMEPRAZOLE 20 MG CAPSULE PO SCH (10:05)
[2023-02-24] MEDS: RisperiDONE 1 MG TABLET PO SCH ×2 (10:05→16:33)
[2023-02-24 12:58] VITALS: BP 141/82; PULSE 83; RESP 17; TEMP 97.7
[2023-02-24] MEDS: ACETAMINOPHEN 325 MG TABLET PO PRN (13:01)
[2023-02-24] MEDS: IBUPROFEN 600 MG TABLET PO PRN (15:14)
[2023-02-24] MEDS: ALBUTEROL SULFATE HFA 90 MCG/PUFF 8 GM INHALER IH PRN (18:38)
[2023-02-24] MEDS: HALOPERIDOL 5 MG TABLET PO PRN (18:42)
[2023-02-24 21:54] VITALS: BP 97/60; PULSE 85; RESP 18; TEMP 97.5
[2023-02-25] VITALS (7 sets, daily range): BP systolic 87–129; BP diastolic 53–69; PULSE 85–97; RESP 18–20; TEMP 97.5–98.2
[2023-02-25] MEDS: RisperiDONE 1 MG TABLET PO SCH ×2 (09:00→16:24)
[2023-02-25] MEDS: APIXABAN 5 MG TABLET PO SCH ×2 (09:22→16:25)
[2023-02-25] MEDS: FluvoxaMINE MALEATE 50 MG TABLET PO SCH (09:23)
[2023-02-25] MEDS: OMEPRAZOLE 20 MG CAPSULE PO SCH (09:23)
[2023-02-25] MEDS: ATORVASTATIN CALCIUM 10 MG TABLET PO SCH (09:23)
[2023-02-25] MEDS: FLUTICASONE/SALMETEROL 100-50 MCG/INH INHALER [60] IH SCH (09:24)
[2023-02-25] MEDS: TAMSULOSIN HCL 0.4 MG CAPSULE PO SCH (09:24)
[2023-02-25] MEDS: ACETAMINOPHEN 325 MG TABLET PO PRN ×3 (09:28→21:51)
[2023-02-25] MEDS: ALBUTEROL SULFATE HFA 90 MCG/PUFF 8 GM INHALER IH PRN ×2 (11:05→17:54)
[2023-02-25] MEDS: ZOLPIDEM TARTRATE 10 MG TABLET PO PRN (21:59)
[2023-02-26] MEDS: RisperiDONE 1 MG TABLET PO SCH ×2 (09:00→16:07)
[2023-02-26] MEDS: APIXABAN 5 MG TABLET PO SCH ×2 (09:10→16:07)
[2023-02-26] MEDS: FLUTICASONE/SALMETEROL 100-50 MCG/INH INHALER [60] IH SCH (09:10)
[2023-02-26] MEDS: ATORVASTATIN CALCIUM 10 MG TABLET PO SCH (09:11)
[2023-02-26] MEDS: FluvoxaMINE MALEATE 50 MG TABLET PO SCH (09:12)
[2023-02-26] MEDS: OMEPRAZOLE 20 MG CAPSULE PO SCH (09:12)
[2023-02-26] MEDS: TAMSULOSIN HCL 0.4 MG CAPSULE PO SCH (09:16)
[2023-02-26 09:23] VITALS: BP 121/80; PULSE 88; RESP 18; TEMP 97.9
[2023-02-26] MEDS: ACETAMINOPHEN 325 MG TABLET PO PRN ×2 (09:23→15:43)
[2023-02-26] MEDS: HALOPERIDOL 5 MG TABLET PO PRN (12:22)
[2023-02-26] MEDS: ZOLPIDEM TARTRATE 10 MG TABLET PO PRN (20:06)
[2023-02-26 22:09] VITALS: BP 110/65; PULSE 88; RESP 18; TEMP 98.6
[2023-02-27] MEDS: FLUTICASONE/SALMETEROL 100-50 MCG/INH INHALER [60] IH SCH (09:10)
[2023-02-27] MEDS: ACETAMINOPHEN 325 MG TABLET PO PRN ×2 (09:10→15:27)
[2023-02-27] MEDS: TAMSULOSIN HCL 0.4 MG CAPSULE PO SCH (09:11)
[2023-02-27] MEDS: RisperiDONE 1 MG TABLET PO SCH ×2 (09:11→17:03)
[2023-02-27] MEDS: OMEPRAZOLE 20 MG CAPSULE PO SCH (09:12)
[2023-02-27] MEDS: APIXABAN 5 MG TABLET PO SCH ×2 (09:12→16:58)
[2023-02-27] MEDS: ATORVASTATIN CALCIUM 10 MG TABLET PO SCH (09:12)
[2023-02-27 10:41] VITALS: BP 112/73; PULSE 101; RESP 18; TEMP 97.4
[2023-02-27] MEDS: FluvoxaMINE MALEATE 50 MG TABLET PO SCH (11:04)
[2023-02-27 15:27] VITALS: RESP 18
[2023-02-27 16:27] VITALS: RESP 17
[2023-02-27] MEDS: ZOLPIDEM TARTRATE 10 MG TABLET PO PRN (21:05)
[2023-02-27] MEDS: HALOPERIDOL 5 MG TABLET PO PRN (21:05)
[2023-02-27 21:27] VITALS: BP 140/76; PULSE 89; RESP 18; TEMP 97.5
[2023-02-28] MEDS: RisperiDONE 1 MG TABLET PO SCH ×2 (08:18→16:46)
[2023-02-28] MEDS: OMEPRAZOLE 20 MG CAPSULE PO SCH (08:18)
[2023-02-28] MEDS: FLUTICASONE/SALMETEROL 100-50 MCG/INH INHALER [60] IH SCH (08:19)
[2023-02-28] MEDS: APIXABAN 5 MG TABLET PO SCH ×2 (08:19→16:46)
[2023-02-28] MEDS: ATORVASTATIN CALCIUM 10 MG TABLET PO SCH (08:19)
[2023-02-28] MEDS: FluvoxaMINE MALEATE 50 MG TABLET PO SCH (08:19)
[2023-02-28] MEDS: TAMSULOSIN HCL 0.4 MG CAPSULE PO SCH (08:19)
[2023-02-28 09:05] VITALS: BP 114/79; PULSE 103; RESP 18; TEMP 97
[2023-02-28] MEDS: HALOPERIDOL 5 MG TABLET PO PRN ×3 (10:16→21:07)
[2023-02-28] MEDS: ALBUTEROL SULFATE HFA 90 MCG/PUFF 8 GM INHALER IH PRN (15:12)
[2023-02-28] MEDS: ACETAMINOPHEN 325 MG TABLET PO PRN (16:46)
[2023-02-28] MEDS: ZOLPIDEM TARTRATE 10 MG TABLET PO PRN (21:07)
[2023-02-28 21:36] VITALS: BP 111/64; PULSE 93; RESP 17
[2023-03-01] VITALS (7 sets, daily range): BP systolic 101–122; BP diastolic 63–75; PULSE 77–113; RESP 17–18; TEMP 98.3–98.6; O2SAT 100
[2023-03-01] MEDS: FLUTICASONE/SALMETEROL 100-50 MCG/INH INHALER [60] IH SCH (07:50)
[2023-03-01] MEDS: APIXABAN 5 MG TABLET PO SCH ×2 (07:50→16:29)
[2023-03-01] MEDS: TAMSULOSIN HCL 0.4 MG CAPSULE PO SCH (07:52)
[2023-03-01] MEDS: FluvoxaMINE MALEATE 50 MG TABLET PO SCH (07:52)
[2023-03-01] MEDS: ATORVASTATIN CALCIUM 10 MG TABLET PO SCH (07:52)
[2023-03-01] MEDS: OMEPRAZOLE 20 MG CAPSULE PO SCH (07:53)
[2023-03-01] MEDS: RisperiDONE 1 MG TABLET PO SCH ×2 (07:53→16:29)
[2023-03-01] MEDS: ACETAMINOPHEN 325 MG TABLET PO PRN (08:35)
[2023-03-01] MEDS: ALBUTEROL SULFATE HFA 90 MCG/PUFF 8 GM INHALER IH PRN (08:36)
[2023-03-01] MEDS: IBUPROFEN 600 MG TABLET PO PRN (11:38)
[2023-03-01] MEDS: HALOPERIDOL 5 MG TABLET PO PRN ×2 (14:18→21:03)
[2023-03-01] MEDS: ZOLPIDEM TARTRATE 10 MG TABLET PO PRN (21:03)
[2023-03-02] MEDS: GuaiFENesin/D-METHORPHAN [SUGAR-FREE] 200-20MG/10 ML SYRUP UDCUP PO PRN ×2 (07:14→15:22)
[2023-03-02] MEDS: TAMSULOSIN HCL 0.4 MG CAPSULE PO SCH (08:28)
[2023-03-02] MEDS: FluvoxaMINE MALEATE 50 MG TABLET PO SCH (08:28)
[2023-03-02] MEDS: ATORVASTATIN CALCIUM 10 MG TABLET PO SCH (08:28)
[2023-03-02] MEDS: APIXABAN 5 MG TABLET PO SCH ×2 (08:28→16:29)
[2023-03-02] MEDS: FLUTICASONE/SALMETEROL 100-50 MCG/INH INHALER [60] IH SCH (08:28)
[2023-03-02 08:30] VITALS: BP 106/72; PULSE 100; RESP 17; TEMP 97.1
[2023-03-02] MEDS: ACETAMINOPHEN 325 MG TABLET PO PRN ×2 (08:31→15:22)
[2023-03-02] MEDS: RisperiDONE 1 MG TABLET PO SCH ×2 (08:31→16:30)
[2023-03-02] MEDS: OMEPRAZOLE 20 MG CAPSULE PO SCH (08:31)
[2023-03-02] MEDS: HALOPERIDOL 5 MG TABLET PO PRN ×3 (08:32→21:39)
[2023-03-02 08:59] VITALS: BP 106/72; PULSE 100; RESP 17; TEMP 97.1
[2023-03-02 20:32] VITALS: BP 133/85; PULSE 85; RESP 18; TEMP 97.7
[2023-03-03] MEDS: ATORVASTATIN CALCIUM 10 MG TABLET PO SCH (08:12)
[2023-03-03] MEDS: GuaiFENesin/D-METHORPHAN [SUGAR-FREE] 200-20MG/10 ML SYRUP UDCUP PO PRN ×3 (08:12→21:53)
[2023-03-03] MEDS: ACETAMINOPHEN 325 MG TABLET PO PRN ×2 (08:12→16:13)
[2023-03-03] MEDS: HALOPERIDOL 5 MG TABLET PO PRN ×3 (08:12→21:19)
[2023-03-03] MEDS: OMEPRAZOLE 20 MG CAPSULE PO SCH (08:12)
[2023-03-03] MEDS: RisperiDONE 1 MG TABLET PO SCH ×2 (08:12→17:00)
[2023-03-03] MEDS: APIXABAN 5 MG TABLET PO SCH ×2 (08:13→17:00)
[2023-03-03] MEDS: TAMSULOSIN HCL 0.4 MG CAPSULE PO SCH (08:13)
[2023-03-03] MEDS: FluvoxaMINE MALEATE 50 MG TABLET PO SCH (08:13)
[2023-03-03] MEDS: FLUTICASONE/SALMETEROL 100-50 MCG/INH INHALER [60] IH SCH (08:13)
[2023-03-03 09:48] VITALS: BP 107/97; PULSE 114; RESP 19; TEMP 98.3
[2023-03-03] MEDS ORDERED: RISP1TAB98 PO (17:05)
[2023-03-03] MEDS: ZOLPIDEM TARTRATE 10 MG TABLET PO PRN (21:52)
[2023-03-03 22:04] VITALS: BP 108/70; PULSE 100; RESP 18; TEMP 97.7
[2023-03-04] MEDS: ACETAMINOPHEN 325 MG TABLET PO PRN ×2 (08:50→18:38)
[2023-03-04] MEDS: GuaiFENesin/D-METHORPHAN [SUGAR-FREE] 200-20MG/10 ML SYRUP UDCUP PO PRN ×2 (08:50→18:38)
[2023-03-04] MEDS: FLUTICASONE/SALMETEROL 100-50 MCG/INH INHALER [60] IH SCH (08:50)
[2023-03-04] MEDS: APIXABAN 5 MG TABLET PO SCH ×2 (08:50→18:37)
[2023-03-04] MEDS: TAMSULOSIN HCL 0.4 MG CAPSULE PO SCH (08:50)
[2023-03-04] MEDS: ATORVASTATIN CALCIUM 10 MG TABLET PO SCH (08:51)
[2023-03-04] MEDS: FluvoxaMINE MALEATE 50 MG TABLET PO SCH (08:51)
[2023-03-04] MEDS: RisperiDONE 1 MG TABLET PO SCH ×2 (08:52→18:35)
[2023-03-04] MEDS: OMEPRAZOLE 20 MG CAPSULE PO SCH (08:54)
[2023-03-04 13:38] VITALS: BP 99/69; PULSE 89; RESP 18; TEMP 97.9
[2023-03-04] MEDS: ZOLPIDEM TARTRATE 10 MG TABLET PO PRN (20:45)
[2023-03-04 22:26] VITALS: BP 120/70; PULSE 84; RESP 18; TEMP 97
[2023-03-05 02:11] VITALS: BP 126/83; PULSE 90; RESP 20; TEMP 97
[2023-03-05] MEDS: GuaiFENesin/D-METHORPHAN [SUGAR-FREE] 200-20MG/10 ML SYRUP UDCUP PO PRN ×3 (02:14→12:21)
[2023-03-05] MEDS: IBUPROFEN 600 MG TABLET PO PRN (02:14)
[2023-03-05 03:14] VITALS: RESP 18
[2023-03-05 08:00] VITALS: BP 104/59; PULSE 96; RESP 18; TEMP 97.2
[2023-03-05] MEDS: ATORVASTATIN CALCIUM 10 MG TABLET PO SCH (08:04)
[2023-03-05] MEDS: TAMSULOSIN HCL 0.4 MG CAPSULE PO SCH (08:04)
[2023-03-05] MEDS: ACETAMINOPHEN 325 MG TABLET PO PRN ×2 (08:04→12:22)
[2023-03-05] MEDS: OMEPRAZOLE 20 MG CAPSULE PO SCH (08:04)
[2023-03-05] MEDS: APIXABAN 5 MG TABLET PO SCH (08:04)
[2023-03-05] MEDS: FluvoxaMINE MALEATE 50 MG TABLET PO SCH (08:05)
[2023-03-05] MEDS: FLUTICASONE/SALMETEROL 100-50 MCG/INH INHALER [60] IH SCH (08:05)
[2023-03-05] MEDS: RisperiDONE 1 MG TABLET PO SCH (09:00)
[2023-03-05 12:20] VITALS: BP 105/55; PULSE 90; RESP 18; TEMP 97.6
== END 2023-03-05 15:37 | disposition home or self-care (01) | DRG 885 ==
LOC: EMS 16:59 → 3EX 22:16
PROVIDERS: ADMIT Psychiatry & Neurology Psychiatry; ATTEND Psychiatry & Neurology Psychiatry
DX: F25.1 Schizoaffective disorder, depressive type (principal); R45.851 Suicidal ideations; N39.0 Urinary tract infection, site not specified; I10 Essential (primary) hypertension; F41.9 Anxiety disorder, unspecified; I48.91 Unspecified atrial fibrillation; K21.9 Gastro-esophageal reflux disease without esophagitis; N40.0 Benign prostatic hyperplasia without lower urinary tract symptoms; G47.00 Insomnia, unspecified; K59.00 Constipation, unspecified; F42.9 Obsessive-compulsive disorder, unspecified; M17.0 Bilateral primary osteoarthritis of knee; Z20.822 Contact with and (suspected) exposure to COVID-19; E87.6 Hypokalemia; J44.9 Chronic obstructive pulmonary disease, unspecified; E78.00 Pure hypercholesterolemia, unspecified; Z88.8 Allergy status to other drugs, medicaments and biological substances; Z79.899 Other long term (current) drug therapy; Z87.891 Personal history of nicotine dependence
CPT/HCPCS: 73521; 80048; 80053; 80307; 81001; 85025; 87086; 87186; 99285; G0378; G0480; J0696; J3490; J3535

== ENCOUNTER 2023-03-24 11:44 | Emergency (ER) | payer MEDICARE, OTHER ==
[~2023-03-24] VITALS: Ht 188 cm; Wt 92.0 kg
[~2023-03-24 11:44] MED LIST changes: -ACET-2080 PO; -ACYC-138 PO; -ALBU2.5V39 NEB; -APIX5TAB PO; -BENZ100C68 PO; -CLON-595 PO; -CLON0.1T2 PO; -DILT120C78 PO; -FINA5TAB41 PO; +FLUT1BLS18 IH; -FLUT1DIS4 IH; -FLUV100T22 PO; +FLUV50 PO; -GUAIF600 PO; -HYDR50CA7 PO; -LURA40TA4 PO; -METF-1211 PO; -METH4TAB3 PO; -MULT-1192 PO; +OMEP20CA12 PO; -PANT40TA54 PO; -PRED-554 PO; +RISP1TAB98 PO
[2023-03-24] MEDS ORDERED: ALBU18HF12 IH (11:55)
[2023-03-24] MEDS ORDERED: MethylPREDNISolone SOD SUCC 125 MG/2 ML VIAL IVP ONE (12:00)
[2023-03-24] MEDS ORDERED: ALBUTEROL SULFATE 2.5 MG/0.5 ML NEB SOLUTION NEB ONE (12:00)
[2023-03-24] MEDS ORDERED: IPRATROPIUM BROMIDE 0.5 MG/2.5 ML NEB SOLUTION NEB ONE (12:00)
[2023-03-24 12:01] VITALS: BP 154/95; TEMP 99
[2023-03-24 12:03] VITALS: PULSE 80; RESP 28; O2SAT 97
[2023-03-24 12:05] VITALS: PULSE 77; RESP 28; O2SAT 97
[2023-03-24] MEDS ORDERED: LORazepam 2 MG/ML VIAL IVP ONE (12:15)
[2023-03-24 12:17] LABS: BASOPHILS % (AUTO) 0.1 % (0.0-2.0); EOSINOPHILS % (AUTO) 0 % (1.0-6.0); HEMATOCRIT 45.3 % (41-53); HEMOGLOBIN 15.2 g/dL (13.5-17.5); LYMPHOCYTES % (AUTO) 11.2 % (22.0-44.0); MEAN CORPUSCULAR HEMOGLOBIN 28.5 pg (26.0-34.0); MEAN CORPUSCULAR HGB CONC 33.4 G/dL (31.0-37.0); MEAN CORPUSCULAR VOLUME 85 fL (80-100); MONOCYTES # (AUTO) 0.3 K/uL (0.1-1.0); MONOCYTES % (AUTO) 3.5 % (2.0-9.0); NEUTROPHILS # (AUTO) 7.6 K/uL (1.8-7.7); PLATELET COUNT (AUTO) 287 K/uL (150-450); RED BLOOD CELL COUNT(AUTO) 5.32 MIL/uL (4.50-5.90); RED CELL DISTRIBUTION WIDTH 14.8 % (11.5-14.5); WHITE BLOOD COUNT (AUTO) 8.9 K/uL (4.5-11.0)
[2023-03-24 12:27] LABS: NEUTROPHILS % (AUTO) 85.2 % (40.0-70.0)
[2023-03-24 12:29] LABS: ANION GAP 2 mmol/L (8-16); CALCIUM, TOTAL 8.9 mg/dL (8.8-10.5); CARBON DIOXIDE 31 mmol/L (22-29); CHLORIDE 103 mmol/L (98-107); CREATININE 1.13 mg/dL (0.60-1.30); GLOMERULAR FILTR. RATE CALC > 60 mL/min (>60); GLUCOSE,RANDOM 116 mg/dL (70-110); SODIUM SERUM 136 mmol/L (136-145); UREA NITROGEN, BLOOD 26 mg/dL (7-18)
[2023-03-24 12:36] LABS: ALANINE AMINOTRANSFERASE 35 U/L (12-78); ALBUMIN 3.4 g/dL (3.4-5.0); ALKALINE PHOSPHATASE 86 U/L (46-116); ASPARTATE AMINOTRANSFERASE 16 U/L (15-37); BILIRUBIN,TOTAL 0.7 mg/dL (0.1-1.0); CREATINE KINASE, TOTAL ONLY 33 U/L (39-308); TOTAL PROTEIN, SERUM 6.8 g/dL (6.4-8.2)
[2023-03-24 12:37] LABS: TROPONIN I-HIGH SENSITIVITY 4 ng/L (<76)
[2023-03-24 12:39] LABS: B-TYPE NATRIURETIC PEPTIDE 38 pg/mL (0-100)
[2023-03-24 13:08] LABS: COVID AG,FIA SOURCE NASAL SWAB
[2023-03-24] MEDS ORDERED: PRED-554 PO (13:10)
[2023-03-24 13:49] LABS: INFLUENZA TYPE A NEGATIVE FOR TYPE A (NEGATIVE); INFLUENZA TYPE B NEGATIVE FOR TYPE B (NEGATIVE)
[2023-03-24 13:50] LABS: SARS-COV2 (COVID) ANTIGEN,FIA Negative (Negative)
== END 2023-03-24 13:21 | disposition home or self-care (01) ==
LOC: EMS 11:45
DX: J44.1 Chronic obstructive pulmonary disease with (acute) exacerbation (principal); F41.9 Anxiety disorder, unspecified; M19.90 Unspecified osteoarthritis, unspecified site; F32.A Depression, unspecified; E78.00 Pure hypercholesterolemia, unspecified; I10 Essential (primary) hypertension; F20.9 Schizophrenia, unspecified; N40.0 Benign prostatic hyperplasia without lower urinary tract symptoms; Z87.891 Personal history of nicotine dependence; Z98.890 Other specified postprocedural states; Z88.8 Allergy status to other drugs, medicaments and biological substances; Z20.822 Contact with and (suspected) exposure to COVID-19
CPT/HCPCS: 99285; 96374; 71045; 96375; 87426; 80053; 82550; 83880; 84484; 85025; 87804; 94640; 93005; J2060; J2930; J7613

== ENCOUNTER 2023-04-20 13:28 | Inpatient (IN) | payer MEDICARE, MEDICAID ==
[~2023-04-20] VITALS: Ht 188 cm; Wt 96.6 kg
[~2023-04-20 13:28] MED LIST changes: +PRED-554 PO
[2023-04-20 14:21] LABS: EOSINOPHILS % (AUTO) 1.5 % (1.0-6.0); HEMOGLOBIN 12.3 g/dL (13.5-17.5); LYMPHOCYTES # (AUTO) 1.4 K/uL (1.0-4.8); LYMPHOCYTES % (AUTO) 27.8 % (22.0-44.0); MEAN CORPUSCULAR HEMOGLOBIN 27.7 pg (26.0-34.0); MEAN CORPUSCULAR HGB CONC 32.5 G/dL (31.0-37.0); MEAN CORPUSCULAR VOLUME 85 fL (80-100); MONOCYTES # (AUTO) 0.6 K/uL (0.1-1.0); MONOCYTES % (AUTO) 10.9 % (2.0-9.0); NEUTROPHILS # (AUTO) 3.1 K/uL (1.8-7.7); NEUTROPHILS % (AUTO) 58.8 % (40.0-70.0); PLATELET COUNT (AUTO) 335 K/uL (150-450); RED BLOOD CELL COUNT(AUTO) 4.45 MIL/uL (4.50-5.90); RED CELL DISTRIBUTION WIDTH 15.2 % (11.5-14.5); WHITE BLOOD COUNT (AUTO) 5.2 K/uL (4.5-11.0)
[2023-04-20 14:23] LABS: ANION GAP 11 mmol/L (8-16); CALCIUM, TOTAL 8.9 mg/dL (8.8-10.5); CARBON DIOXIDE 28 mmol/L (22-29); CHLORIDE 109 mmol/L (98-107); GLOMERULAR FILTR. RATE CALC > 60 mL/min (>60); GLUCOSE,RANDOM 109 mg/dL (70-110); POTASSIUM 3.3 mmol/L (3.5-5.1); SODIUM SERUM 147 mmol/L (136-145); UREA NITROGEN, BLOOD 12 mg/dL (7-18)
[2023-04-20 14:28] LABS: ALANINE AMINOTRANSFERASE 43 U/L (12-78); ALBUMIN 2.9 g/dL (3.4-5.0); ALKALINE PHOSPHATASE 97 U/L (46-116); ASPARTATE AMINOTRANSFERASE 25 U/L (15-37); BILIRUBIN,TOTAL 0.2 mg/dL (0.1-1.0); TOTAL PROTEIN, SERUM 6.2 g/dL (6.4-8.2)
[2023-04-20 14:31] LABS: ALCOHOL, BLOOD (SERUM) < 3 mg/dL (0-10)
[2023-04-20 15:11] LABS: ALCOHOL, URINE DRUG SCREEN NEGATIVE (NEGATIVE); AMPHET/METH SCREEN,URINE NEGATIVE (NEGATIVE); BARBITURATE SCREEN, URINE NEGATIVE (NEGATIVE); BENZODIAZEPINES SCREEN,URINE NEGATIVE (NEGATIVE); CANNABINOID SCREEN,URINE NEGATIVE (NEGATIVE); COCAINE SCREEN,URINE NEGATIVE (NEGATIVE); METHADONE SCREEN, URINE NEGATIVE (NEGATIVE); OPIATE SCREEN,URINE NEGATIVE (NEGATIVE); PHENCYCLIDINE SCREEN,URINE NEGATIVE (NEGATIVE)
[2023-04-20 17:11] LABS: COVID AG,FIA SOURCE NASAL SWAB
[2023-04-20] MEDS ORDERED: LORazepam 2 MG TABLET PO ONE (17:15)
[2023-04-20] MEDS ORDERED: POTASSIUM CHLORIDE 10% 40 MEQ/30 ML LIQUID UDCUP PO ONE (17:15)
[2023-04-20 17:29] LABS: SARS-COV2 (COVID) ANTIGEN,FIA Negative (Negative)
[2023-04-21] MEDS: ZOLPIDEM TARTRATE 10 MG TABLET PO PRN (00:03)
[2023-04-21] MEDS: LORazepam 2 MG TABLET PO PRN ×2 (00:03→12:33)
[2023-04-22] MEDS: ZOLPIDEM TARTRATE 10 MG TABLET PO PRN ×2 (01:36→22:46)
[2023-04-22] MEDS: LORazepam 2 MG TABLET PO PRN (10:00)
[2023-04-22 11:39] VITALS: BP 158/98; PULSE 60; RESP 18; TEMP 98
[2023-04-22] MEDS ORDERED: MAGNESIUM HYDROXIDE SUSPENSION 30 ML UDCUP PO PRN (11:45)
[2023-04-22] MEDS ORDERED: IBUPROFEN 600 MG TABLET PO PRN (11:45)
[2023-04-22] MEDS ORDERED: PETROLATUM,WHITE 28 GM JELLY TP PRN (11:45)
[2023-04-22] MEDS ORDERED: LOPERAMIDE HCL 2 MG CAPSULE PO PRN (11:45)
[2023-04-22] MEDS ORDERED: MAG HYDROX/ALUMINUM HYD/SIMETH ES 30 ML SUSPENSION UDCUP PO PRN (11:45)
[2023-04-22] MEDS ORDERED: BACITRACIN 28 GM OINTMENT TP PRN (11:45)
[2023-04-22] MEDS ORDERED: BENZOCAINE/MENTHOL LOZENGE PO PRN (11:45)
[2023-04-22] MEDS ORDERED: OMEPRAZOLE 20 MG CAPSULE PO PRN (11:45)
[2023-04-22] MEDS ORDERED: POTASSIUM CHLORIDE 20 MEQ ER TABLET PO ONE (11:45)
[2023-04-22] MEDS ORDERED: ONDANSETRON HCL 4 MG TABLET PO PRN (11:45)
[2023-04-22] MEDS ORDERED: DOCUSATE SODIUM 100 MG CAPSULE PO PRN (11:45)
[2023-04-22] MEDS ORDERED: CloNIDine HCL 0.1 MG TABLET PO PRN (11:45)
[2023-04-22] MEDS ORDERED: ALBUTEROL SULFATE HFA 90 MCG/PUFF 8 GM INHALER IH PRN (11:45)
[2023-04-22] MEDS ORDERED: ACETAMINOPHEN 325 MG TABLET PO PRN (11:45)
[2023-04-22] MEDS ORDERED: PNEUMOCOCCAL VACCINE POLYVALENT 0.5 ML SYRINGE [PPSV23] IM. ONE (14:00)
[2023-04-22] MEDS: ATORVASTATIN CALCIUM 10 MG TABLET PO SCH (20:47)
[2023-04-22 21:03] VITALS: BP 100/64; PULSE 65; RESP 18; TEMP 98.2
[2023-04-23 07:16] LABS: POTASSIUM 4.2 mmol/L (3.5-5.1)
[2023-04-23] MEDS: RisperiDONE 1 MG TABLET PO SCH ×2 (09:11→16:04)
[2023-04-23] MEDS: LORazepam 0.5 MG TABLET PO SCH ×2 (09:11→16:04)
[2023-04-23] MEDS: FluvoxaMINE MALEATE 50 MG TABLET PO SCH (09:12)
[2023-04-23] MEDS: TAMSULOSIN HCL 0.4 MG CAPSULE PO SCH (09:12)
[2023-04-23 13:23] VITALS: BP 98/82; PULSE 82; RESP 18; TEMP 97.3
[2023-04-23] MEDS: HALOPERIDOL 5 MG TABLET PO PRN (14:50)
[2023-04-23 20:49] VITALS: RESP 18
[2023-04-23] MEDS: ZOLPIDEM TARTRATE 10 MG TABLET PO PRN (21:24)
[2023-04-23] MEDS: ATORVASTATIN CALCIUM 10 MG TABLET PO SCH (21:24)
[2023-04-24 07:38] LABS: APPEARANCE,URINE CLEAR (CLEAR); BILIRUBIN,URINE NEGATIVE (NEGATIVE); COLOR,URINE LIGHT YELLOW (YELLOW); GLUCOSE, URINE (UA) NEGATIVE (NEGATIVE); KETONES,URINE NEGATIVE (NEGATIVE); LEUKOCYTE ESTERASE ,URINE NEGATIVE (NEGATIVE); NITRATE,URINE NEGATIVE (NEGATIVE); OCCULT BLOOD,URINE NEGATIVE (NEGATIVE); PH,URINE 7.5 (5.0-8.0); PROTEIN,URINE NEGATIVE (NEGATIVE); SPECIFIC GRAVITIY, URINE 1.014 (1.003-1.030); UROBILINOGEN,URINE <=1.0 mg/dL (<=1.0)
[2023-04-24] MEDS: LORazepam 0.5 MG TABLET PO SCH ×2 (08:32→17:32)
[2023-04-24] MEDS: FluvoxaMINE MALEATE 50 MG TABLET PO SCH (08:32)
[2023-04-24] MEDS: TAMSULOSIN HCL 0.4 MG CAPSULE PO SCH (08:33)
[2023-04-24] MEDS: HALOPERIDOL 5 MG TABLET PO PRN ×2 (08:33→17:33)
[2023-04-24 08:46] VITALS: BP 124/83; PULSE 87; RESP 18; TEMP 97.6
[2023-04-24] MEDS: RisperiDONE 1 MG TABLET PO SCH ×2 (09:00→17:00)
[2023-04-24 20:30] VITALS: RESP 18
[2023-04-24] MEDS: ATORVASTATIN CALCIUM 10 MG TABLET PO SCH (21:13)
[2023-04-25] MEDS: FluvoxaMINE MALEATE 50 MG TABLET PO SCH (08:02)
[2023-04-25] MEDS: TAMSULOSIN HCL 0.4 MG CAPSULE PO SCH (08:02)
[2023-04-25] MEDS: LORazepam 0.5 MG TABLET PO SCH ×2 (08:02→16:32)
[2023-04-25] MEDS: RisperiDONE 1 MG TABLET PO SCH ×2 (08:44→16:32)
[2023-04-25 09:06] VITALS: BP 117/67; PULSE 88; RESP 18; TEMP 97.6
[2023-04-25 20:18] VITALS: BP 119/71; PULSE 62; RESP 18; TEMP 97.1
[2023-04-25] MEDS: ATORVASTATIN CALCIUM 10 MG TABLET PO SCH (20:42)
[2023-04-26] MEDS: ZOLPIDEM TARTRATE 10 MG TABLET PO PRN (01:25)
[2023-04-26] MEDS: RisperiDONE 1 MG TABLET PO SCH ×2 (08:20→08:22)
[2023-04-26] MEDS: TAMSULOSIN HCL 0.4 MG CAPSULE PO SCH (08:20)
[2023-04-26] MEDS: LORazepam 0.5 MG TABLET PO SCH (08:20)
[2023-04-26] MEDS: FluvoxaMINE MALEATE 50 MG TABLET PO SCH (08:20)
[2023-04-26 09:59] VITALS: BP 135/86; PULSE 89; RESP 18; TEMP 97.7
[2023-04-26 10:00] VITALS: BP 135/86; PULSE 89; RESP 18; TEMP 97.7
== END 2023-04-26 13:23 | disposition home or self-care (01) | DRG 885 ==
LOC: EMS 13:36 → 3EI 04-22 09:54 → 3EX 04-22 11:03
PROVIDERS: ADMIT Psychiatry & Neurology Psychiatry; ATTEND Psychiatry & Neurology Psychiatry
DX: F20.9 Schizophrenia, unspecified (principal); E44.0 Moderate protein-calorie malnutrition; R45.851 Suicidal ideations; E87.6 Hypokalemia; I10 Essential (primary) hypertension; F41.9 Anxiety disorder, unspecified; G47.00 Insomnia, unspecified; N40.0 Benign prostatic hyperplasia without lower urinary tract symptoms; K59.00 Constipation, unspecified; E78.00 Pure hypercholesterolemia, unspecified; J44.9 Chronic obstructive pulmonary disease, unspecified; M17.0 Bilateral primary osteoarthritis of knee; Z20.822 Contact with and (suspected) exposure to COVID-19; I48.91 Unspecified atrial fibrillation; K21.9 Gastro-esophageal reflux disease without esophagitis; F42.9 Obsessive-compulsive disorder, unspecified; Z87.891 Personal history of nicotine dependence; Z88.8 Allergy status to other drugs, medicaments and biological substances; Z79.899 Other long term (current) drug therapy; Z87.440 Personal history of urinary (tract) infections; Z68.27 Body mass index [BMI] 27.0-27.9, adult
CPT/HCPCS: 80053; 85025; 36415; 80307 ×2; 87426; G0480; 81003; 84132; 84295; 99285; G0378; J3535

== ENCOUNTER 2023-04-29 12:31 | Inpatient (IN) | payer MEDICARE, MEDICAID ==
[~2023-04-29] VITALS: Ht 188 cm; Wt 103.0 kg
[~2023-04-29 12:31] MED LIST changes: -ALBU18HF12 IH; -FLUT1BLS18 IH; -OMEP20CA12 PO; -PRED-554 PO; +RISP-31 PO; -RISP1TAB98 PO
[2023-04-29 13:23] LABS: BASOPHILS % (AUTO) 1.3 % (0.0-2.0); EOSINOPHILS % (AUTO) 0.6 % (1.0-6.0); HEMATOCRIT 39.1 % (41-53); HEMOGLOBIN 12.9 g/dL (13.5-17.5); LYMPHOCYTES # (AUTO) 1.6 K/uL (1.0-4.8); LYMPHOCYTES % (AUTO) 19.8 % (22.0-44.0); MEAN CORPUSCULAR HEMOGLOBIN 28.3 pg (26.0-34.0); MEAN CORPUSCULAR VOLUME 86 fL (80-100); MONOCYTES # (AUTO) 0.6 K/uL (0.1-1.0); MONOCYTES % (AUTO) 7.7 % (2.0-9.0); NEUTROPHILS # (AUTO) 5.6 K/uL (1.8-7.7); NEUTROPHILS % (AUTO) 70.6 % (40.0-70.0); PLATELET COUNT (AUTO) 282 K/uL (150-450); RED BLOOD CELL COUNT(AUTO) 4.56 MIL/uL (4.50-5.90); RED CELL DISTRIBUTION WIDTH 15.4 % (11.5-14.5); WHITE BLOOD COUNT (AUTO) 7.9 K/uL (4.5-11.0)
[2023-04-29 13:26] LABS: ANION GAP 9 mmol/L (8-16); CALCIUM, TOTAL 9.1 mg/dL (8.8-10.5); CARBON DIOXIDE 29 mmol/L (22-29); CHLORIDE 106 mmol/L (98-107); CREATININE 0.91 mg/dL (0.60-1.30); GLOMERULAR FILTR. RATE CALC > 60 mL/min (>60); GLUCOSE,RANDOM 112 mg/dL (70-110); POTASSIUM 3.8 mmol/L (3.5-5.1); SODIUM SERUM 144 mmol/L (136-145); UREA NITROGEN, BLOOD 13 mg/dL (7-18)
[2023-04-29 13:27] LABS: COVID AG,FIA SOURCE NASAL SWAB
[2023-04-29 13:31] LABS: ALANINE AMINOTRANSFERASE 28 U/L (12-78); ALBUMIN 3.6 g/dL (3.4-5.0); ALKALINE PHOSPHATASE 107 U/L (46-116); ASPARTATE AMINOTRANSFERASE 20 U/L (15-37); BILIRUBIN,TOTAL 0.4 mg/dL (0.1-1.0); TOTAL PROTEIN, SERUM 6.9 g/dL (6.4-8.2)
[2023-04-29 13:34] LABS: ALCOHOL, BLOOD (SERUM) < 3 mg/dL (0-10)
[2023-04-29 13:39] LABS: PH,URINE DRUG SCREEN 5.5 (5.0-8.0)
[2023-04-29 13:51] LABS: SARS-COV2 (COVID) ANTIGEN,FIA Negative (Negative)
[2023-04-29 13:55] LABS: ALCOHOL, URINE DRUG SCREEN NEGATIVE (NEGATIVE); AMPHET/METH SCREEN,URINE NEGATIVE (NEGATIVE); BARBITURATE SCREEN, URINE NEGATIVE (NEGATIVE); BENZODIAZEPINES SCREEN,URINE NEGATIVE (NEGATIVE); CANNABINOID SCREEN,URINE NEGATIVE (NEGATIVE); COCAINE SCREEN,URINE NEGATIVE (NEGATIVE); METHADONE SCREEN, URINE NEGATIVE (NEGATIVE); OPIATE SCREEN,URINE NEGATIVE (NEGATIVE); PHENCYCLIDINE SCREEN,URINE NEGATIVE (NEGATIVE)
[2023-04-29] MEDS ORDERED: LORazepam 2 MG TABLET PO PRN (15:30)
[2023-04-29 17:48] VITALS: BP 162/83; PULSE 73; RESP 16; TEMP 97.7
[2023-04-29] MEDS ORDERED: PNEUMOCOCCAL VACCINE POLYVALENT 0.5 ML SYRINGE [PPSV23] IM. ONE (18:15)
[2023-04-29] MEDS ORDERED: INFLUENZA VIRUS VACCINE QVS 2023-24 (6MO+)/PF 60 MCG/0.5 ML SYRINGE IM. ONE (18:15)
[2023-04-29] MEDS: HALOPERIDOL 5 MG TABLET PO PRN (19:59)
[2023-04-29 20:03] VITALS: BP 128/74; PULSE 71; RESP 18; TEMP 98.3
[2023-04-29] MEDS: AmLODIPine BESYLATE 2.5 MG TABLET PO SCH (21:00)
[2023-04-29] MEDS: ZOLPIDEM TARTRATE 10 MG TABLET PO PRN (22:55)
[2023-04-30] VITALS (7 sets, daily range): BP systolic 115–129; BP diastolic 67–88; PULSE 80–92; RESP 17–18; TEMP 97.5–98.6; O2SAT 98–100
[2023-04-30] MEDS ORDERED: MAG HYDROX/ALUMINUM HYD/SIMETH ES 30 ML SUSPENSION UDCUP PO PRN (07:15)
[2023-04-30] MEDS ORDERED: MAGNESIUM HYDROXIDE SUSPENSION 30 ML UDCUP PO PRN (07:15)
[2023-04-30] MEDS ORDERED: LOPERAMIDE HCL 2 MG CAPSULE PO PRN (07:15)
[2023-04-30] MEDS ORDERED: GuaiFENesin/D-METHORPHAN [SUGAR-FREE] 200-20MG/10 ML SYRUP UDCUP PO PRN (07:15)
[2023-04-30] MEDS ORDERED: PETROLATUM,WHITE 28 GM JELLY TP PRN (07:15)
[2023-04-30] MEDS ORDERED: NICOTINE 14 MG/24 HOUR PATCH TD PRN (07:15)
[2023-04-30] MEDS ORDERED: ACETAMINOPHEN 325 MG TABLET PO PRN (07:15)
[2023-04-30] MEDS ORDERED: DOCUSATE SODIUM 100 MG CAPSULE PO PRN (07:15)
[2023-04-30] MEDS ORDERED: CloNIDine HCL 0.1 MG TABLET PO PRN (07:15)
[2023-04-30] MEDS ORDERED: ALBUTEROL SULFATE HFA 90 MCG/PUFF 8 GM INHALER IH PRN (07:15)
[2023-04-30] MEDS ORDERED: ONDANSETRON HCL 4 MG TABLET PO PRN (07:15)
[2023-04-30] MEDS: TAMSULOSIN HCL 0.4 MG CAPSULE PO SCH (08:44)
[2023-04-30] MEDS: AmLODIPine BESYLATE 2.5 MG TABLET PO SCH ×2 (08:44→09:00)
[2023-04-30] MEDS ORDERED: DIAZEPAM 10 MG TABLET PO PRN (10:45)
[2023-04-30] MEDS ORDERED: HydrOXYzine PAMOATE 25 MG CAPSULE PO PRN (10:45)
[2023-04-30] MEDS: FluvoxaMINE MALEATE 50 MG TABLET PO SCH (12:14)
[2023-04-30] MEDS: GABAPENTIN 100 MG CAPSULE PO SCH ×2 (13:17→16:13)
[2023-04-30] MEDS: ATORVASTATIN CALCIUM 10 MG TABLET PO SCH (20:37)
[2023-04-30] MEDS: OLANZapine 5 MG TABLET PO SCH (20:37)
[2023-04-30] MEDS: ZOLPIDEM TARTRATE 10 MG TABLET PO PRN (21:08)
[2023-05-01 06:38] LABS: HEMOGLOBIN A1C 5.6 % (3.8-5.6)
[2023-05-01 06:47] LABS: THYROID STIMULATING HORMONE 1.72 uIU/mL (0.36-3.74)
[2023-05-01] MEDS ORDERED: DIAZEPAM 10 MG TABLET PO PRN (07:00)
[2023-05-01] MEDS: TAMSULOSIN HCL 0.4 MG CAPSULE PO SCH (08:28)
[2023-05-01] MEDS: DIAZEPAM 10 MG TABLET PO SCH ×4 (08:28→21:09)
[2023-05-01] MEDS: GABAPENTIN 100 MG CAPSULE PO SCH ×3 (08:28→18:09)
[2023-05-01] MEDS: FluvoxaMINE MALEATE 50 MG TABLET PO SCH (08:28)
[2023-05-01] MEDS: AmLODIPine BESYLATE 2.5 MG TABLET PO SCH (08:28)
[2023-05-01] MEDS: HALOPERIDOL 5 MG TABLET PO PRN ×2 (08:29→21:09)
[2023-05-01 09:59] VITALS: BP 131/76; PULSE 92; RESP 18; TEMP 98
[2023-05-01 10:00] VITALS: BP 131/76; PULSE 92; RESP 18; TEMP 98; O2SAT 98
[2023-05-01] MEDS: OLANZapine 5 MG TABLET PO SCH (21:09)
[2023-05-01] MEDS: ATORVASTATIN CALCIUM 10 MG TABLET PO SCH (21:10)
[2023-05-01] MEDS: ZOLPIDEM TARTRATE 10 MG TABLET PO PRN (21:30)
[2023-05-01 21:49] VITALS: BP_SYST 131; BP_SYST 94; BP_DIAS 54; BP_DIAS 70; PULSE 76; RESP 19; TEMP 97.3; O2SAT 76; O2SAT 95
[2023-05-01 21:52] VITALS: BP 131/70; PULSE 76; RESP 19; TEMP 97.1
[2023-05-02] VITALS (7 sets, daily range): BP systolic 106–131; BP diastolic 61–91; PULSE 78–98; RESP 18–19; TEMP 97.6–98.6; O2SAT 98–99
[2023-05-02] MEDS: TAMSULOSIN HCL 0.4 MG CAPSULE PO SCH (08:19)
[2023-05-02] MEDS: FluvoxaMINE MALEATE 50 MG TABLET PO SCH (08:20)
[2023-05-02] MEDS: AmLODIPine BESYLATE 2.5 MG TABLET PO SCH (08:20)
[2023-05-02] MEDS: GABAPENTIN 100 MG CAPSULE PO SCH ×3 (08:20→16:12)
[2023-05-02] MEDS: DIAZEPAM 10 MG TABLET PO SCH ×4 (08:21→21:12)
[2023-05-02] MEDS: IBUPROFEN 400 MG TABLET PO PRN ×2 (15:14→23:35)
[2023-05-02] MEDS: OLANZapine 5 MG TABLET PO SCH (21:11)
[2023-05-02] MEDS: ATORVASTATIN CALCIUM 10 MG TABLET PO SCH (21:12)
[2023-05-03 00:35] VITALS: RESP 18
[2023-05-03] MEDS ORDERED: DIAZEPAM 5 MG TABLET PO PRN (07:00)
[2023-05-03 07:25] VITALS: BP 116/78; PULSE 81; RESP 20; TEMP 97.9
[2023-05-03] MEDS: IBUPROFEN 400 MG TABLET PO PRN ×2 (07:35→15:37)
[2023-05-03] MEDS: TAMSULOSIN HCL 0.4 MG CAPSULE PO SCH (08:32)
[2023-05-03] MEDS: GABAPENTIN 100 MG CAPSULE PO SCH ×3 (08:33→16:24)
[2023-05-03] MEDS: FluvoxaMINE MALEATE 50 MG TABLET PO SCH (08:33)
[2023-05-03] MEDS: AmLODIPine BESYLATE 2.5 MG TABLET PO SCH (08:33)
[2023-05-03] MEDS: DIAZEPAM 5 MG TABLET PO SCH ×4 (08:34→20:35)
[2023-05-03 09:08] VITALS: BP 116/78; PULSE 77; RESP 18; TEMP 97.7
[2023-05-03 09:25] VITALS: BP 116/78; PULSE 72; RESP 18; TEMP 97.7; O2SAT 99
[2023-05-03] MEDS: OLANZapine 5 MG TABLET PO SCH (20:35)
[2023-05-03] MEDS: ATORVASTATIN CALCIUM 10 MG TABLET PO SCH (20:35)
[2023-05-03 21:17] VITALS: BP 120/73; PULSE 75; RESP 18; TEMP 97.5
[2023-05-03 21:18] VITALS: BP 120/73; PULSE 75; RESP 18; TEMP 97.5
[2023-05-03] MEDS: ZOLPIDEM TARTRATE 10 MG TABLET PO PRN (21:45)
[2023-05-04 05:55] VITALS: BP 123/69; PULSE 71; RESP 18; TEMP 97.2
[2023-05-04] MEDS: IBUPROFEN 400 MG TABLET PO PRN (05:55)
[2023-05-04 06:55] VITALS: RESP 18
[2023-05-04] MEDS ORDERED: DIAZEPAM 5 MG TABLET PO PRN (07:00)
[2023-05-04] MEDS: TAMSULOSIN HCL 0.4 MG CAPSULE PO SCH (08:12)
[2023-05-04] MEDS: AmLODIPine BESYLATE 2.5 MG TABLET PO SCH (08:12)
[2023-05-04] MEDS: HALOPERIDOL 5 MG TABLET PO PRN ×2 (08:12→19:50)
[2023-05-04] MEDS: GABAPENTIN 100 MG CAPSULE PO SCH ×3 (08:12→16:10)
[2023-05-04] MEDS: FluvoxaMINE MALEATE 50 MG TABLET PO SCH (08:12)
[2023-05-04 09:00] VITALS: BP 126/73; PULSE 77; RESP 18; TEMP 97.8
[2023-05-04 10:33] VITALS: BP 126/73; PULSE 77; RESP 18; TEMP 97.8; O2SAT 99
[2023-05-04] MEDS: OLANZapine 5 MG TABLET PO SCH (20:29)
[2023-05-04] MEDS: ATORVASTATIN CALCIUM 10 MG TABLET PO SCH (20:29)
[2023-05-04] MEDS: ZOLPIDEM TARTRATE 10 MG TABLET PO PRN (20:30)
[2023-05-04 20:36] VITALS: BP 120/71; PULSE 74; RESP 18; TEMP 97.7
[2023-05-04 20:37] VITALS: BP 127/67; PULSE 81; RESP 18; TEMP 97.7
[2023-05-05] MEDS: AmLODIPine BESYLATE 2.5 MG TABLET PO SCH (08:23)
[2023-05-05] MEDS: TAMSULOSIN HCL 0.4 MG CAPSULE PO SCH (08:23)
[2023-05-05] MEDS: FluvoxaMINE MALEATE 50 MG TABLET PO SCH (08:23)
[2023-05-05] MEDS: GABAPENTIN 100 MG CAPSULE PO SCH ×3 (08:23→17:05)
[2023-05-05 08:48] VITALS: BP 108/69; PULSE 85; RESP 18; TEMP 98.1
[2023-05-05 19:02] VITALS: RESP 18
[2023-05-05] MEDS: IBUPROFEN 400 MG TABLET PO PRN (19:06)
[2023-05-05 20:06] VITALS: RESP 18
[2023-05-05 20:37] VITALS: RESP 18
[2023-05-05] MEDS: ZOLPIDEM TARTRATE 10 MG TABLET PO PRN (20:58)
[2023-05-05] MEDS: ATORVASTATIN CALCIUM 10 MG TABLET PO SCH (20:58)
[2023-05-05] MEDS: OLANZapine 5 MG TABLET PO SCH (20:58)
[2023-05-06 08:56] VITALS: BP 130/73; PULSE 99; RESP 18; TEMP 98.1
[2023-05-06] MEDS: TAMSULOSIN HCL 0.4 MG CAPSULE PO SCH (09:17)
[2023-05-06] MEDS: AmLODIPine BESYLATE 2.5 MG TABLET PO SCH (09:18)
[2023-05-06] MEDS: FluvoxaMINE MALEATE 50 MG TABLET PO SCH (09:19)
[2023-05-06] MEDS: GABAPENTIN 100 MG CAPSULE PO SCH ×3 (09:19→16:27)
[2023-05-06] MEDS: IBUPROFEN 400 MG TABLET PO PRN (12:27)
[2023-05-06 12:30] VITALS: BP 129/65; PULSE 83; RESP 18; TEMP 98.5
[2023-05-06] MEDS: ZOLPIDEM TARTRATE 10 MG TABLET PO PRN (21:26)
[2023-05-06] MEDS: ATORVASTATIN CALCIUM 10 MG TABLET PO SCH (21:27)
[2023-05-06] MEDS: OLANZapine 5 MG TABLET PO SCH (21:27)
[2023-05-06 21:41] VITALS: BP 108/60; PULSE 86; RESP 18; TEMP 98.1
[2023-05-07 05:17] VITALS: BP 135/64; PULSE 77; RESP 18; TEMP 98
[2023-05-07] MEDS: IBUPROFEN 400 MG TABLET PO PRN (05:20)
[2023-05-07] MEDS ORDERED: FLUV50 PO (05:37)
[2023-05-07] MEDS ORDERED: TAMS0.4C94 PO (05:37)
[2023-05-07] MEDS ORDERED: AMLO2.5T96 PO (05:37)
[2023-05-07] MEDS ORDERED: GABA-1216 PO (05:37)
[2023-05-07] MEDS ORDERED: OLAN5TAB52 PO (05:37)
[2023-05-07] MEDS ORDERED: ATOR10TA69 PO (05:37)
[2023-05-07 06:20] VITALS: RESP 18
[2023-05-07 08:30] VITALS: BP 110/66; PULSE 90; RESP 18; TEMP 97.8
[2023-05-07] MEDS: GABAPENTIN 100 MG CAPSULE PO SCH ×3 (09:11→16:13)
[2023-05-07] MEDS: AmLODIPine BESYLATE 2.5 MG TABLET PO SCH (09:11)
[2023-05-07] MEDS: TAMSULOSIN HCL 0.4 MG CAPSULE PO SCH (09:11)
[2023-05-07] MEDS: FluvoxaMINE MALEATE 50 MG TABLET PO SCH (09:12)
== END 2023-05-07 17:15 | disposition home or self-care (01) | DRG 885 ==
LOC: EMS 13:12 → 3EX 15:38
PROVIDERS: ADMIT Psychiatry & Neurology Psychiatry; ATTEND Psychiatry & Neurology Psychiatry
PROC: GZHZZZZ Group Psychotherapy (ICD-10-PCS; principal; 2023-04-30)
DX: F33.2 Major depressive disorder, recurrent severe without psychotic features (principal); R45.851 Suicidal ideations; F25.1 Schizoaffective disorder, depressive type; J45.909 Unspecified asthma, uncomplicated; I10 Essential (primary) hypertension; K21.9 Gastro-esophageal reflux disease without esophagitis; J44.9 Chronic obstructive pulmonary disease, unspecified; F42.9 Obsessive-compulsive disorder, unspecified; N40.0 Benign prostatic hyperplasia without lower urinary tract symptoms; I48.0 Paroxysmal atrial fibrillation; F41.1 Generalized anxiety disorder; M17.0 Bilateral primary osteoarthritis of knee; K59.00 Constipation, unspecified; G47.00 Insomnia, unspecified; Z20.822 Contact with and (suspected) exposure to COVID-19; E78.00 Pure hypercholesterolemia, unspecified; Z79.899 Other long term (current) drug therapy; Z87.891 Personal history of nicotine dependence; Z88.8 Allergy status to other drugs, medicaments and biological substances
CPT/HCPCS: 80053; 80061; 80307; 83036; 84443; 85025; 87081; 99285; G0378; G0480; J3535

== ENCOUNTER 2024-01-17 19:08 | Emergency (ER) | payer MEDICARE, OTHER ==
[~2024-01-17] VITALS: Ht 188 cm; Wt 97.7 kg
[~2024-01-17 19:08] MED LIST changes: +APIX5TAB PO; +ATOR10TA PO; -ATOR10TA69 PO; +BACI28.410 TP; +DILT120C78 PO; -FLUV50 PO; +GABA-1216 PO; +OLAN10TA74 PO; -RISP-31 PO; +SERT-162 PO
[2024-01-17 19:25] VITALS: BP 136/88; PULSE 104; RESP 16; TEMP 98.5; O2SAT 98
[2024-01-17 20:16] LABS: EOSINOPHILS % (AUTO) 1.5 % (1.0-6.0); HEMATOCRIT 41.2 % (41-53); HEMOGLOBIN 13.4 g/dL (13.5-17.5); LYMPHOCYTES # (AUTO) 1.6 K/uL (1.0-4.8); LYMPHOCYTES % (AUTO) 22.3 % (22.0-44.0); MEAN CORPUSCULAR HEMOGLOBIN 27.3 pg (26.0-34.0); MEAN CORPUSCULAR HGB CONC 32.6 G/dL (31.0-37.0); MEAN CORPUSCULAR VOLUME 84 fL (80-100); MONOCYTES # (AUTO) 0.7 K/uL (0.1-1.0); MONOCYTES % (AUTO) 9.1 % (2.0-9.0); NEUTROPHILS # (AUTO) 4.8 K/uL (1.8-7.7); NEUTROPHILS % (AUTO) 66.1 % (40.0-70.0); PLATELET COUNT (AUTO) 283 K/uL (150-450); RED BLOOD CELL COUNT(AUTO) 4.93 MIL/uL (4.50-5.90); RED CELL DISTRIBUTION WIDTH 14.2 % (11.5-14.5); WHITE BLOOD COUNT (AUTO) 7.3 K/uL (4.5-11.0)
[2024-01-17 20:26] LABS: ANION GAP 13 mmol/L (8-16); CALCIUM, TOTAL 8.9 mg/dL (8.8-10.5); CARBON DIOXIDE 22 mmol/L (22-29); CHLORIDE 101 mmol/L (98-107); CREATININE 1.01 mg/dL (0.60-1.30); GLOMERULAR FILTR. RATE CALC > 60 mL/min (>60); GLUCOSE,RANDOM 126 mg/dL (70-110); POTASSIUM 3.6 mmol/L (3.5-5.1); SODIUM SERUM 136 mmol/L (136-145); UREA NITROGEN, BLOOD 18 mg/dL (7-18)
[2024-01-17 20:33] LABS: B-TYPE NATRIURETIC PEPTIDE 12 pg/mL (0-100)
[2024-01-17 20:34] LABS: TROPONIN I-HIGH SENSITIVITY 5 ng/L (<76)
[2024-01-18] MEDS ORDERED: FINA5TAB41 PO (17:30)
[2024-01-18] MEDS ORDERED: OMEP40CA21 PO (17:30)
[2024-01-18] MEDS ORDERED: LANS-78 PO (17:30)
== END 2024-01-17 22:26 | disposition left against medical advice (07) ==
LOC: EMS 19:09
DX: R07.9 Chest pain, unspecified (principal); Z53.21 Procedure and treatment not carried out due to patient leaving prior to being seen by health care provider
CPT/HCPCS: 80048; 83880; 84484; 85025; 93005

== ENCOUNTER 2024-01-18 14:43 | Emergency (ER) | payer MEDICARE, OTHER ==
[~2024-01-18] VITALS: Ht 188 cm; Wt 97.7 kg
[2024-01-18 14:58] VITALS: TEMP 99.1
[2024-01-18 15:11] LABS: COVID AG,FIA SOURCE NASAL SWAB
[2024-01-18 15:59] LABS: SARS-COV2 (COVID) ANTIGEN,FIA Negative (Negative)
[2024-01-18 16:01] LABS: INFLUENZA TYPE A NEGATIVE FOR TYPE A (NEGATIVE); INFLUENZA TYPE B NEGATIVE FOR TYPE B (NEGATIVE)
[2024-01-18 17:13] VITALS: BP 128/76; PULSE 86; RESP 16; O2SAT 96
[2024-01-18] MEDS ORDERED: FINA5TAB41 PO (17:30)
[2024-01-18] MEDS ORDERED: LANS-78 PO (17:30)
[2024-01-18] MEDS ORDERED: OMEP40CA21 PO (17:30)
[2024-01-18] MEDS: LORazepam 2 MG TABLET PO ONE (17:46)
== END 2024-01-18 19:22 | disposition home or self-care (01) ==
LOC: EMS 15:03
DX: F41.1 Generalized anxiety disorder (principal); J44.89 Other specified chronic obstructive pulmonary disease; F25.1 Schizoaffective disorder, depressive type; K21.9 Gastro-esophageal reflux disease without esophagitis; N40.0 Benign prostatic hyperplasia without lower urinary tract symptoms; I48.91 Unspecified atrial fibrillation; I10 Essential (primary) hypertension; E78.00 Pure hypercholesterolemia, unspecified; Z79.899 Other long term (current) drug therapy; Z87.440 Personal history of urinary (tract) infections; Z79.01 Long term (current) use of anticoagulants; Z88.8 Allergy status to other drugs, medicaments and biological substances; Z20.822 Contact with and (suspected) exposure to COVID-19
CPT/HCPCS: 87804; 99283

== ENCOUNTER 2024-01-26 20:47 | Emergency (ER) | payer MEDICARE, OTHER ==
[~2024-01-26] VITALS: Ht 188 cm; Wt 97.7 kg
[~2024-01-26 20:47] MED LIST changes: -BACI28.410 TP; +FINA5TAB41 PO; +OMEP40CA21 PO
[2024-01-26 21:15] VITALS: TEMP 98.1
[2024-01-26 21:47] LABS: BASOPHILS % (AUTO) 0.7 % (0.0-2.0); EOSINOPHILS % (AUTO) 3.1 % (1.0-6.0); LYMPHOCYTES # (AUTO) 1.5 K/uL (1.0-4.8); LYMPHOCYTES % (AUTO) 21.6 % (22.0-44.0); MEAN CORPUSCULAR HEMOGLOBIN 27.3 pg (26.0-34.0); MEAN CORPUSCULAR HGB CONC 32.4 G/dL (31.0-37.0); MEAN CORPUSCULAR VOLUME 85 fL (80-100); MONOCYTES # (AUTO) 0.6 K/uL (0.1-1.0); MONOCYTES % (AUTO) 7.9 % (2.0-9.0); NEUTROPHILS # (AUTO) 4.6 K/uL (1.8-7.7); NEUTROPHILS % (AUTO) 66.7 % (40.0-70.0); PLATELET COUNT (AUTO) 262 K/uL (150-450); RED BLOOD CELL COUNT(AUTO) 4.74 MIL/uL (4.50-5.90); RED CELL DISTRIBUTION WIDTH 14.5 % (11.5-14.5); WHITE BLOOD COUNT (AUTO) 6.9 K/uL (4.5-11.0)
[2024-01-26 21:53] LABS: ANION GAP 9 mmol/L (8-16); CALCIUM, TOTAL 9.4 mg/dL (8.8-10.5); CARBON DIOXIDE 27 mmol/L (22-29); CHLORIDE 103 mmol/L (98-107); GLOMERULAR FILTR. RATE CALC > 60 mL/min (>60); GLUCOSE,RANDOM 114 mg/dL (70-110); SODIUM SERUM 139 mmol/L (136-145); UREA NITROGEN, BLOOD 25 mg/dL (7-18)
[2024-01-26 22:01] LABS: TROPONIN I-HIGH SENSITIVITY 6 ng/L (<76)
[2024-01-26 22:05] LABS: B-TYPE NATRIURETIC PEPTIDE 8 pg/mL (0-100)
[2024-01-26 22:15] VITALS: PULSE 98; RESP 20; O2SAT 98
[2024-01-26] MEDS: LEVALBUTEROL 0.63 MG/3 ML NEB SOLUTION NEB ONE (23:21)
[2024-01-26] MEDS: IPRATROPIUM BROMIDE 0.5 MG/2.5 ML NEB SOLUTION NEB ONE (23:22)
[2024-01-26 23:25] VITALS: PULSE 98; RESP 20; O2SAT 98
[2024-01-26] MEDS: DEXAMETHASONE SOD PHOS 4 MG/ML VIAL IM ONE (23:27)
[2024-01-26 23:40] VITALS: PULSE 112; RESP 21; O2SAT 100
[2024-01-27 00:09] VITALS: BP 143/82; PULSE 97; RESP 20; O2SAT 100
== END 2024-01-27 00:12 | disposition home or self-care (01) ==
LOC: EMS 20:47
DX: J44.1 Chronic obstructive pulmonary disease with (acute) exacerbation (principal); F41.9 Anxiety disorder, unspecified; M19.90 Unspecified osteoarthritis, unspecified site; F32.A Depression, unspecified; E78.00 Pure hypercholesterolemia, unspecified; I10 Essential (primary) hypertension; F20.9 Schizophrenia, unspecified; K21.9 Gastro-esophageal reflux disease without esophagitis; F42.9 Obsessive-compulsive disorder, unspecified; N40.0 Benign prostatic hyperplasia without lower urinary tract symptoms; Z88.8 Allergy status to other drugs, medicaments and biological substances
CPT/HCPCS: 99285; 71045; 80048; 83880; 84484; 85025; 36415; 94640; 93005; 96372; J1100; Z7610

== ENCOUNTER 2024-02-15 17:54 | Emergency (ER) | payer MEDICARE, OTHER ==
[~2024-02-15] VITALS: Ht 188 cm; Wt 108.0 kg
[~2024-02-15 17:54] MED LIST changes: +BUDE10.7 IH; +DIGO125T84 PO; -DILT120C78 PO; +PRED-729 PO
[2024-02-15 18:31] VITALS: TEMP 98.6
[2024-02-15 18:51] LABS: ANION GAP 13 mmol/L (8-16); CALCIUM, TOTAL 8.8 mg/dL (8.8-10.5); CARBON DIOXIDE 22 mmol/L (22-29); CHLORIDE 104 mmol/L (98-107); CREATININE 1.05 mg/dL (0.60-1.30); GLOMERULAR FILTR. RATE CALC > 60 mL/min (>60); GLUCOSE,RANDOM 128 mg/dL (70-110); POTASSIUM 3.7 mmol/L (3.5-5.1); SODIUM SERUM 139 mmol/L (136-145); UREA NITROGEN, BLOOD 24 mg/dL (7-18)
[2024-02-15 18:56] LABS: B-TYPE NATRIURETIC PEPTIDE 38 pg/mL (0-100)
[2024-02-15 19:00] LABS: BASOPHILS % (AUTO) 0.1 % (0.0-2.0); EOSINOPHILS % (AUTO) 0 % (1.0-6.0); HEMATOCRIT 41.7 % (41-53); HEMOGLOBIN 13.5 g/dL (13.5-17.5); LYMPHOCYTES # (AUTO) 0.8 K/uL (1.0-4.8); LYMPHOCYTES % (AUTO) 8.7 % (22.0-44.0); MEAN CORPUSCULAR HEMOGLOBIN 27.2 pg (26.0-34.0); MEAN CORPUSCULAR HGB CONC 32.4 G/dL (31.0-37.0); MEAN CORPUSCULAR VOLUME 84 fL (80-100); MONOCYTES # (AUTO) 0.5 K/uL (0.1-1.0); MONOCYTES % (AUTO) 5.4 % (2.0-9.0); PLATELET COUNT (AUTO) 244 K/uL (150-450); RED BLOOD CELL COUNT(AUTO) 4.97 MIL/uL (4.50-5.90); RED CELL DISTRIBUTION WIDTH 14.7 % (11.5-14.5); WHITE BLOOD COUNT (AUTO) 9.4 K/uL (4.5-11.0)
[2024-02-15 19:14] LABS: APPEARANCE,URINE CLEAR (CLEAR); BILIRUBIN,URINE NEGATIVE (NEGATIVE); COLOR,URINE LIGHT YELLOW (YELLOW); GLUCOSE, URINE (UA) NEGATIVE (NEGATIVE); KETONES,URINE NEGATIVE (NEGATIVE); LEUKOCYTE ESTERASE ,URINE NEGATIVE (NEGATIVE); NITRATE,URINE NEGATIVE (NEGATIVE); OCCULT BLOOD,URINE NEGATIVE (NEGATIVE); PROTEIN,URINE NEGATIVE (NEGATIVE); SPECIFIC GRAVITIY, URINE 1.015 (1.003-1.030); UROBILINOGEN,URINE <=1.0 mg/dL (<=1.0)
[2024-02-15 19:15] LABS: NEUTROPHILS % (AUTO) 85.8 % (40.0-70.0)
[2024-02-15] MEDS: LORazepam 1 MG TABLET PO ONE (19:22)
[2024-02-15 19:27] LABS: TROPONIN I-HIGH SENSITIVITY 5 ng/L (<76)
[2024-02-15 21:40] VITALS: BP 146/82; PULSE 59; RESP 16; O2SAT 99
== END 2024-02-15 21:45 | disposition home or self-care (01) ==
LOC: EMS 17:54
DX: R06.02 Shortness of breath (principal); F41.9 Anxiety disorder, unspecified; E78.00 Pure hypercholesterolemia, unspecified; F20.9 Schizophrenia, unspecified; F32.A Depression, unspecified; J44.89 Other specified chronic obstructive pulmonary disease; I10 Essential (primary) hypertension; K21.9 Gastro-esophageal reflux disease without esophagitis; N40.0 Benign prostatic hyperplasia without lower urinary tract symptoms; Z87.891 Personal history of nicotine dependence; Z88.6 Allergy status to analgesic agent; Z88.8 Allergy status to other drugs, medicaments and biological substances; Z98.890 Other specified postprocedural states
CPT/HCPCS: 71045; 80048; 81003; 83880; 84484; 85025; 85379; 93005; 99285; 36415-L1; 36415-TC

== ENCOUNTER 2024-10-17 16:44 | Emergency (ER) | payer MEDICARE, OTHER ==
[~2024-10-17] VITALS: Ht 188 cm; Wt 129.6 kg
[2024-10-17 16:52] VITALS: BP 117/64; PULSE 82; RESP 17; TEMP 98; O2SAT 98
[2024-10-17 18:05] LABS: BASOPHILS % (AUTO) 0.8 % (0.0-2.0); EOSINOPHILS % (AUTO) 0.7 % (1.0-6.0); HEMOGLOBIN 13.6 g/dL (13.5-17.5); LYMPHOCYTES # (AUTO) 1.2 K/uL (1.0-4.8); LYMPHOCYTES % (AUTO) 15.6 % (22.0-44.0); MEAN CORPUSCULAR HEMOGLOBIN 26.7 pg (26.0-34.0); MEAN CORPUSCULAR HGB CONC 33.2 G/dL (31.0-37.0); MEAN CORPUSCULAR VOLUME 81 fL (80-100); MONOCYTES # (AUTO) 0.5 K/uL (0.1-1.0); NEUTROPHILS # (AUTO) 5.9 K/uL (1.8-7.7); NEUTROPHILS % (AUTO) 75.9 % (40.0-70.0); PLATELET COUNT (AUTO) 219 K/uL (150-450); RED BLOOD CELL COUNT(AUTO) 5.09 MIL/uL (4.50-5.90); RED CELL DISTRIBUTION WIDTH 14.3 % (11.5-14.5); WHITE BLOOD COUNT (AUTO) 7.8 K/uL (4.5-11.0)
[2024-10-17 18:06] LABS: ANION GAP 11 mmol/L (8-16); CALCIUM, TOTAL 9.5 mg/dL (8.8-10.5); CARBON DIOXIDE 23 mmol/L (22-29); CHLORIDE 101 mmol/L (98-107); CREATININE 1.12 mg/dL (0.60-1.30); GLOMERULAR FILTR. RATE CALC > 60 mL/min (>60); GLUCOSE,RANDOM 109 mg/dL (70-110); POTASSIUM 3.5 mmol/L (3.5-5.1); SODIUM SERUM 135 mmol/L (136-145); UREA NITROGEN, BLOOD 12 mg/dL (7-18)
[2024-10-17 18:15] LABS: TROPONIN I-HIGH SENSITIVITY 5 ng/L (<76)
[2024-10-17] MEDS ORDERED: PREG25CA19 PO (18:39)
[2024-10-17] MEDS ORDERED: PALI546S IM (18:39)
[2024-10-17] MEDS ORDERED: PREG75 PO (18:39)
[2024-10-17] MEDS ORDERED: METO25 PO (18:39)
[2024-10-17] MEDS ORDERED: FLUT1BLS3 IH (18:39)
[2024-10-17] MEDS ORDERED: SEMA0.253 SQ (18:39)
[2024-10-17] MEDS ORDERED: PREG25 PO (18:40)
[2024-10-17] MEDS: QUEtiapine FUMARATE 100 MG TABLET PO ONE (18:49)
[2024-10-17] MEDS: ChlorproMAZINE HCL 50 MG/2 ML AMP IM ONE (18:51)
== END 2024-10-17 20:23 | disposition home or self-care (01) ==
LOC: EMS 16:45
DX: F41.9 Anxiety disorder, unspecified (principal); M19.90 Unspecified osteoarthritis, unspecified site; J44.89 Other specified chronic obstructive pulmonary disease; E78.00 Pure hypercholesterolemia, unspecified; F32.A Depression, unspecified; I10 Essential (primary) hypertension; K21.9 Gastro-esophageal reflux disease without esophagitis; F20.9 Schizophrenia, unspecified; I48.91 Unspecified atrial fibrillation; Z86.018 Personal history of other benign neoplasm; Z88.6 Allergy status to analgesic agent; Z79.899 Other long term (current) drug therapy; Z88.8 Allergy status to other drugs, medicaments and biological substances; Z87.891 Personal history of nicotine dependence
CPT/HCPCS: 99285; 71045; 80048; 83880; 84484; 85025; 36415; 93005; 96372; J3230

== ENCOUNTER 2024-11-14 18:58 | Emergency (ER) | payer MEDICARE, OTHER ==
[~2024-11-14] VITALS: Ht 195.6 cm; Wt 136.4 kg
[~2024-11-14 18:58] MED LIST changes: -APIX5TAB PO; +ASPI81TA87 PO; -BUDE10.7 IH; -DIGO125T84 PO; -GABA-1216 PO; +METO25 PO; -OLAN10TA74 PO; -OMEP40CA21 PO; -PRED-729 PO; +PREG25CA19 PO; -SERT-162 PO; -TAMS0.4C94 PO
[2024-11-14 19:17] VITALS: TEMP 98.7
[2024-11-14 20:18] LABS: PLATELET COUNT (AUTO) 219 K/uL (150-450); RED BLOOD CELL COUNT(AUTO) 4.77 MIL/uL (4.50-5.90); RED CELL DISTRIBUTION WIDTH 14.3 % (11.5-14.5); WHITE BLOOD COUNT (AUTO) 6.0 K/uL (4.5-11.0)
[2024-11-14 20:29] LABS: CALCIUM, TOTAL 8.7 mg/dL (8.8-10.5); CREATININE 1.03 mg/dL (0.60-1.30); GLOMERULAR FILTR. RATE CALC > 60 mL/min (>60); GLUCOSE,RANDOM 102 mg/dL (70-110); SODIUM SERUM 137 mmol/L (136-145); TROPONIN I-HIGH SENSITIVITY 7 ng/L (<76); UREA NITROGEN, BLOOD 8 mg/dL (7-18)
[2024-11-14 22:00] VITALS: BP 134/79; PULSE 84; RESP 16; O2SAT 100
== END 2024-11-14 23:01 | disposition still patient (30) ==
LOC: EMS 18:58
DX: F41.9 Anxiety disorder, unspecified (principal); M19.90 Unspecified osteoarthritis, unspecified site; E78.00 Pure hypercholesterolemia, unspecified; F20.9 Schizophrenia, unspecified; I10 Essential (primary) hypertension; I48.91 Unspecified atrial fibrillation; J44.89 Other specified chronic obstructive pulmonary disease; R06.02 Shortness of breath; N40.0 Benign prostatic hyperplasia without lower urinary tract symptoms; Z98.890 Other specified postprocedural states; Z87.891 Personal history of nicotine dependence; Z88.8 Allergy status to other drugs, medicaments and biological substances; Z88.6 Allergy status to analgesic agent; Z79.82 Long term (current) use of aspirin; Z79.899 Other long term (current) drug therapy
CPT/HCPCS: 71045; 80048; 83880; 84484; 85025; 93005; 99285; 36415-L1; 36415-TC

== ENCOUNTER 2025-02-06 18:11 | Inpatient (IN) | payer MEDICARE, OTHER ==
[~2025-02-06] VITALS: Ht 188 cm; Wt 112.6 kg
[2025-02-06 18:47] LABS: PLATELET COUNT (AUTO) 245 K/uL (150-450); RED BLOOD CELL COUNT(AUTO) 4.68 MIL/uL (4.50-5.90); RED CELL DISTRIBUTION WIDTH 15.8 % (11.5-14.5); WHITE BLOOD COUNT (AUTO) 5.7 K/uL (4.5-11.0)
[2025-02-06 18:53] LABS: CALCIUM, TOTAL 8.9 mg/dL (8.8-10.5); CREATININE 0.87 mg/dL (0.60-1.30); GLOMERULAR FILTR. RATE CALC > 60 mL/min (>60); GLUCOSE,RANDOM 98 mg/dL (70-110); SODIUM SERUM 135 mmol/L (136-145); UREA NITROGEN, BLOOD 8 mg/dL (7-18)
[2025-02-06 18:58] LABS: CREATINE KINASE, TOTAL ONLY 219 U/L (39-308)
[2025-02-06 19:02] LABS: TROPONIN I-HIGH SENSITIVITY 7 ng/L (<76)
[2025-02-06] MEDS ORDERED: MORPHINE SULFATE 4 MG/ML SYRINGE IVP PRN (21:45)
[2025-02-06] MEDS ORDERED: ACETAMINOPHEN 325 MG TABLET PO PRN (21:45)
[2025-02-06] MEDS: ASPIRIN 81 MG CHEWABLE TABLET PO ONE (21:55)
[2025-02-07 00:11] VITALS: BP 119/75; PULSE 107; RESP 19; TEMP 97.3; O2SAT 97
[2025-02-07 00:16] LABS: TROPONIN I-HIGH SENSITIVITY 8 ng/L (<76)
[2025-02-07] MEDS: HEPARIN SODIUM,PORCINE 5,000 UNITS/ML VIAL SQ SCH (01:43)
[2025-02-07 03:24] LABS: PLATELET COUNT (AUTO) 229 K/uL (150-450); RED BLOOD CELL COUNT(AUTO) 4.29 MIL/uL (4.50-5.90); RED CELL DISTRIBUTION WIDTH 15.7 % (11.5-14.5); WHITE BLOOD COUNT (AUTO) 5.3 K/uL (4.5-11.0)
[2025-02-07 03:28] LABS: CALCIUM, TOTAL 8.4 mg/dL (8.8-10.5); CREATININE 0.79 mg/dL (0.60-1.30); GLOMERULAR FILTR. RATE CALC > 60 mL/min (>60); GLUCOSE,RANDOM 114 mg/dL (70-110); SODIUM SERUM 134 mmol/L (136-145); UREA NITROGEN, BLOOD 9 mg/dL (7-18)
[2025-02-07 03:39] LABS: TROPONIN I-HIGH SENSITIVITY 9 ng/L (<76)
[2025-02-07 04:53] VITALS: BP 122/81; PULSE 71; RESP 19; TEMP 98.8; O2SAT 98
[2025-02-07] MEDS: ATORVASTATIN CALCIUM 10 MG TABLET PO SCH (08:09)
[2025-02-07] MEDS: ASPIRIN 81 MG CHEWABLE TABLET PO SCH (08:09)
[2025-02-07] MEDS: PREGABALIN 25 MG CAPSULE PO SCH (08:09)
[2025-02-07] MEDS: METOPROLOL TARTRATE 25 MG TABLET PO SCH (08:10)
[2025-02-07] MEDS: FINASTERIDE 5 MG TABLET PO SCH (08:10)
[2025-02-07] MEDS: DOCUSATE SODIUM 100 MG CAPSULE PO SCH (08:10)
[2025-02-07 08:32] VITALS: BP 117/76; PULSE 85; RESP 17; TEMP 97.9; O2SAT 97
[2025-02-07 12:34] VITALS: BP 110/72; PULSE 71; RESP 18; TEMP 97; O2SAT 97
[2025-02-07 16:25] VITALS: BP 114/80; PULSE 70; RESP 18; TEMP 97.3; O2SAT 96
[2025-02-07 19:25] VITALS: BP 109/55; PULSE 87; RESP 17; TEMP 98.1; O2SAT 98
[2025-02-08 00:04] VITALS: BP 106/69; PULSE 61; RESP 18; TEMP 98.1; O2SAT 98
[2025-02-08 04:25] VITALS: BP 121/77; PULSE 63; RESP 18; TEMP 97.9; O2SAT 100
[2025-02-08 07:32] VITALS: BP 102/70; PULSE 68; RESP 18; TEMP 98.4; O2SAT 99
[2025-02-08] MEDS ORDERED: REGADENOSON 0.4 MG/5 ML PF SYRINGE IVP ONE (10:00)
[2025-02-08] MEDS ORDERED: SESTAMIBI TC99M/UD ISOTOPE 1 EA INJ INJ ONE ×2 (10:10→12:25)
[2025-02-08] MEDS: REGADENOSON 0.4 MG/5 ML PF SYRINGE IVP ONE (11:45)
[2025-02-08 12:00] VITALS: BP 111/62; PULSE 92; RESP 18; TEMP 98; O2SAT 97
[2025-02-08 16:01] VITALS: BP 115/77; PULSE 87; RESP 18; TEMP 97; O2SAT 99
[2025-02-08 19:32] VITALS: BP 98/61; PULSE 89; RESP 19; TEMP 97.7; O2SAT 96
[2025-02-08] MEDS: ONDANSETRON HCL 4 MG/2 ML VIAL IVP PRN (20:14)
[2025-02-09 00:10] VITALS: BP 126/74; PULSE 64; RESP 17; TEMP 98.4; O2SAT 97
[2025-02-09 06:32] LABS: PLATELET COUNT (AUTO) 211 K/uL (150-450); RED BLOOD CELL COUNT(AUTO) 4.38 MIL/uL (4.50-5.90); RED CELL DISTRIBUTION WIDTH 16.0 % (11.5-14.5); WHITE BLOOD COUNT (AUTO) 4.1 K/uL (4.5-11.0)
[2025-02-09 06:51] VITALS: BP 98/56; PULSE 66; RESP 18; TEMP 98.1; O2SAT 98
[2025-02-09 07:00] LABS: CALCIUM, TOTAL 8.9 mg/dL (8.8-10.5); CREATININE 0.72 mg/dL (0.60-1.30); GLOMERULAR FILTR. RATE CALC > 60 mL/min (>60); GLUCOSE,RANDOM 106 mg/dL (70-110); SODIUM SERUM 134 mmol/L (136-145); UREA NITROGEN, BLOOD 8 mg/dL (7-18)
[2025-02-09 07:51] VITALS: BP 116/61; PULSE 69; RESP 18; TEMP 98.8; O2SAT 97
[2025-02-09 11:20] VITALS: BP 101/61; PULSE 71; RESP 19; TEMP 98; O2SAT 97
[2025-02-09 15:32] VITALS: BP 121/73; PULSE 68; RESP 19; TEMP 97.7; O2SAT 98
== END 2025-02-09 16:10 | disposition home or self-care (01) | DRG 311 ==
LOC: EMS 18:11 → EDH 21:33 → CMPBEDREQ 22:51 → 5S 23:35
PROVIDERS: ADMIT Internal Medicine; ATTEND Internal Medicine
PROC: 4A02XM4 Measurement of Cardiac Total Activity, External Approach (ICD-10-PCS; principal; 2025-02-08)
PROC: 3E073KZ Introduction of Other Diagnostic Substance into Coronary Artery, Percutaneous Approach (ICD-10-PCS; 2025-02-08)
DX: I20.0 Unstable angina (principal); I10 Essential (primary) hypertension; F20.9 Schizophrenia, unspecified; D64.9 Anemia, unspecified; E66.9 Obesity, unspecified; E78.00 Pure hypercholesterolemia, unspecified; F42.9 Obsessive-compulsive disorder, unspecified; I48.91 Unspecified atrial fibrillation; J44.89 Other specified chronic obstructive pulmonary disease; M17.0 Bilateral primary osteoarthritis of knee; F32.A Depression, unspecified; F41.9 Anxiety disorder, unspecified; K21.9 Gastro-esophageal reflux disease without esophagitis; N40.0 Benign prostatic hyperplasia without lower urinary tract symptoms; Z87.891 Personal history of nicotine dependence; Z68.31 Body mass index [BMI] 31.0-31.9, adult; Z88.6 Allergy status to analgesic agent; Z91.148 Patient's other noncompliance with medication regimen for other reason; Z79.82 Long term (current) use of aspirin; Z79.899 Other long term (current) drug therapy; Z88.1 Allergy status to other antibiotic agents
CPT/HCPCS: 71045; 78452; 80048; 82550; 83735; 83880; 84484; 85025; 85379; 93005; 93017; 93306; 97116; 97162; 99285; A9500; J1644; J2405; J2785; 36415-L1; 36415-TC